=== PATIENT | female | born 1930 | race Caucasian/White ===

== ENCOUNTER 2016-10-28 13:19 | Inpatient (IN) | payer MEDICARE, BC ==
[~2016-10-28] VITALS: Ht 160 cm; Wt 50.0 kg
[2016-10-28] VITALS (7 sets, daily range): BP systolic 97–106; BP diastolic 50–58; PULSE 69–78; RESP 16–18; TEMP 96–98; O2SAT 97–99
[~2016-10-28 13:19] MED LIST: ACET325 PO; ACETAMIN-HYDROcod 325-5 MG PO; AMLO5 PO; DOCU1CAP39 PO; ENOX40P SQ; LORTA5 PO; WALKER ROLLING; WHEELCHAIR RENTAL RA; Z.0.WALKERFRONT
[2016-10-28] MEDS ORDERED: CARV6.25 PO (13:37)
[2016-10-28] MEDS ORDERED: ASPI1TAB69 PO (13:37)
[2016-10-28] MEDS ORDERED: ATOR20TA15 PO (13:37)
[2016-10-28] MEDS ORDERED: POTA-163 PO (13:37)
[2016-10-28] MEDS ORDERED: SULF500T3 PO (13:37)
--- NOTE | 2016-10-28 13:42 | PD ---
HPI . Confusion Chief Complaint: General Weakness Time Seen by Provider: 13:33 Travel History International Travel<30 days: No Contact w/Intl Traveler<30days: No Traveled to known affect area: No History of Present Illness HPI Patient is accompanied here by family member (I think that it is probably a granddaughter). The family member reports that the patient has been in the bed for 5 days and is having continuous diarrhea and is now hallucinating. The family member states that the patient was diagnosed with dementia in June. The patient herself denies any complaints. She is able to answer simple questions appropriately. PFSH Past Medical History Arthritis: Yes Asthma: No Autoimmune Disease: No Anxiety: No Depression: No Heart Rhythm Problems: No Cancer: No Cardiovascular Problems: Yes (HBP) High Cholesterol: Yes Chemotherapy: No Chest Pain: No Congestive Heart Failure: No COPD: No Cerebrovascular Accident: No Diabetes: No Diminished Hearing: No Endocrine: No GERD: No Genitourinary: No Hiatal Hernia: No Hypertension: Yes Immune Disorder: No Musculoskeletal: No Neurologic: Yes (DEMENTIA) Psychiatric: No Reproductive: No Respiratory: No Migraines: No Radiation Therapy: No Renal Failure: No Seizures: No Sickle Cell Disease: No Sleep Apnea: No Thyroid Disease: No Ulcer: No Tetanus Vaccination: < 5 Years Menopausal: Yes Past Surgical History Abdominal Surgery: Yes (appendectomy) AICD: No Appendectomy: Yes Arteriovenous Shunt: No Cardiac Surgery: No Ear Surgery: No Endocrine Surgery: No Eye Surgery: No Genitourinary Surgery: No Gynecologic Surgery: No Hysterectomy: Yes Insulin Pump: No Joint Replacement: No Oral Surgery: Yes (pulled teeth) Pacemaker: No Thoracic Surgery: No Other Surgery: Yes Social History Alcohol Use: Yes (2 COCKTAILS PER NIGHT) Tobacco Use: No Substance Use: No Allergies-Medications (Allergen,Severity, Reaction): Coded Allergies: No Known Allergies (Verified , 10/28/16) Reported Meds & Prescriptions Reported Meds & Active Scripts Active Reported Atorvastatin (Atorvastatin Calcium) 20 Mg Tab 20 Mg PO HS Sulfasalazine 500 Mg Tab 500 Mg PO BID NEB Potassium Chloride ER (Potassium Chloride) 20 Meq Tab 20 Meq PO DAILY Coreg (Carvedilol) 6.25 Mg Tab 6.25 Mg PO BID Aspirin 81 Mg Tabdr 81 Mg PO DAILY Review of Systems Except as stated in HPI: all other systems reviewed are Neg General / Constitutional: No: Fever, Chills Cardiovascular: No: Chest Pain or Discomfort Respiratory: No: Shortness of Breath Gastrointestinal: Positive: Diarrhea, No: Nausea, Vomiting, Abdominal Pain Genitourinary: No: Urgency, Frequency, Dysuria Psychiatric: Positive: Other (hallucinations) Physical Exam Narrative GENERAL: This is a bright-eyed elderly woman who appears to be in no distress. SKIN: Warm and dry. HEAD: Atraumatic. Normocephalic. EYES: Pupils equal and round. ENT: No nasal bleeding or discharge. Mucous membranes pink and moist. NECK: Trachea midline. Neck is supple. No cervical lymphadenopathy. CARDIOVASCULAR: Regular rate and rhythm. Heart sounds are normal. RESPIRATORY: No accessory muscle use. Lungs are clear with full air movement throughout. GASTROINTESTINAL: Abdomen soft, non-tender, nondistended. Bowel sounds are increased. MUSCULOSKELETAL: No obvious deformities. No edema. NEUROLOGICAL: Awake and alert. No obvious cranial nerve deficits. Motor grossly within normal limits. Normal speech. PSYCHIATRIC: Appropriate mood and affect. I am unable to assess her insight and judgment. Data Data Last Documented VS Vital Signs Date Time Temp Pulse Resp B/P Pulse Ox O2 Delivery O2 Flow Rate FiO2 10/28/16 15:47 97.8 78 16 106/58 99 Room Air Orders Electrocardiogram (10/28/16 13:39) Ammonia (10/28/16 13:39) Complete Blood Count With Diff (10/28/16 13:39) Comprehensive Metabolic Panel (10/28/16 13:39) Drug Screen, Random Urine (10/28/16 13:39) Troponin I (10/28/16 13:39) Urinalysis - C+S If Indicated (10/28/16 13:39) Ct Brain W/O Iv Contrast(Rout) (10/28/16 13:39) Blood Glucose (10/28/16 13:39) Iv Access Insert/Monitor (10/28/16 13:39) Sodium Chloride 0.9% Flush (Ns Flush) (10/28/16 13:45) Orthostatic Vital Signs (10/28/16 13:41) Sodium Chlor 0.9% 1000 Ml Inj (Ns 1000 M (10/28/16 13:45) Cath For Specimen (10/28/16 15:52) Admit Order (Ed Use Only) (10/28/16 17:49) Labs Laboratory Tests Test 10/28/16 10/28/16 13:41 16:10 White Blood Count 10.2 TH/MM3 Red Blood Count 4.17 MIL/MM3 Hemoglobin 13.4 GM/DL Hematocrit 40.4 % Mean Corpuscular Volume 97.0 FL Mean Corpuscular Hemoglobin 32.1 PG Mean Corpuscular Hemoglobin 33.1 % Concent Red Cell Distribution Width 15.5 % Platelet Count 258 TH/MM3 Mean Platelet Volume 8.8 FL Neutrophils (%) (Auto) 65.8 % Lymphocytes (%) (Auto) 17.7 % Monocytes (%) (Auto) 11.9 % Eosinophils (%) (Auto) 4.2 % Basophils (%) (Auto) 0.4 % Neutrophils # (Auto) 6.7 TH/MM3 Lymphocytes # (Auto) 1.8 TH/MM3 Monocytes # (Auto) 1.2 TH/MM3 Eosinophils # (Auto) 0.4 TH/MM3 Basophils # (Auto) 0.0 TH/MM3 CBC Comment DIFF FINAL Differential Comment Sodium Level 135 MEQ/L Potassium Level 3.4 MEQ/L Chloride Level 116 MEQ/L Carbon Dioxide Level 9.0 MEQ/L Anion Gap 10 MEQ/L Blood Urea Nitrogen 37 MG/DL Creatinine 4.50 MG/DL Estimat Glomerular Filtration 9 ML/MIN Rate Random Glucose 106 MG/DL Calcium Level 8.4 MG/DL Total Bilirubin 0.4 MG/DL Aspartate Amino Transf 15 U/L (AST/SGOT) Alanine Aminotransferase 15 U/L (ALT/SGPT) Alkaline Phosphatase 107 U/L Ammonia 20 MCMOL/L Troponin I LESS THAN 0.02 NG/ML Total Protein 7.3 GM/DL Albumin 3.4 GM/DL Urine Color YELLOW Urine Turbidity HAZY Urine pH 5.5 Urine Specific [place] 1.015 Urine Protein 30 mg/dL Urine Glucose (UA) NEG mg/dL Urine Ketones NEG mg/dL Urine Occult Blood NEG Urine Nitrite NEG Urine Bilirubin NEG Urine Urobilinogen LESS THAN 2.0 MG/DL Urine Leukocyte Esterase NEG Urine RBC 1 /hpf Urine WBC 3 /hpf Urine Squamous Epithelial <1 /hpf Cells Urine Hyaline Casts 2 /lpf Urine Mucus FEW /lpf Microscopic Urinalysis Comment CULT NOT INDICATED MDM Medical Decision Making Medical Screen Exam Complete: Yes Emergency Medical Condition: Yes Interpretation(s) EKG shows a sinus rhythm with a left bundle branch block. This is unchanged from previous. Differential Diagnosis Differential diagnosis of weakness includes but is not limited to infection, CVA , electrolyte disturbance, renal failure, hypoglycemia, UTI, ACS Narrative Course This patient is brought in by family member reported continuous diarrhea, somnolence and hallucinating. [address] is negative for acute change. CBC has a normal white blood count. Her troponin is negative. Ammonia is 20. Chemistries show acute renal failure. Her previous creatinine was 0.8. Today, it is 0.5. She is acidotic with a carbon dioxide of 9. This is new for her. 5:30 PM I finally have the results of her UA. It is negative. She will be admitted for acute renal failure and metabolic acidosis. Diagnosis Primary Impression: Acute renal failure Qualified Code: N17.9 - Acute renal failure, unspecified acute renal failure type Additional Impressions: Metabolic acidosis Diarrhea Qualified Code: R19.7 - Diarrhea, unspecified type Admitting Information Admitting Physician Requests: Admit Condition: Stable Leda Brar MD Oct 28, 2016 13:42
[2016-10-28] MEDS ORDERED: SODIUM CHLOR 0.9% 1000 ML INJ 1,000 ML IV ONE (13:45)
[2016-10-28] MEDS ORDERED: SODIUM CHLORIDE 0.9% FLUSH 5 ML FLUSH IVF PRN (13:45)
[2016-10-28 14:19] LABS: AUTOMATED NEUTROPHIL # 6.7 TH/MM3 (1.8-7.7); BASOPHIL % 0.4 % (0.0-2.0); EOSINOPHIL # 0.4 TH/MM3 (0-0.4); EOSINOPHIL % 4.2 % (0.0-4.0); HEMATOCRIT 40.4 % (35.0-46.0); HEMO FLAGS DIFF FINAL; LYMPH % 17.7 % (9.0-44.0); LYMPHOCYTE # 1.8 TH/MM3 (1.0-4.8); MEAN CORPUSCULAR HEMOGLOBIN 32.1 PG (27.0-34.0); MEAN CORPUSCULAR HGB CONC 33.1 % (32.0-36.0); MONO % 11.9 % (0.0-8.0); NEUT % 65.8 % (16.0-70.0); PLATELET COUNT 258 TH/MM3 (150-450); RED BLOOD COUNT 4.17 MIL/MM3 (4.00-5.30); RED CELL DISTRIBUTION WIDTH 15.5 % (11.6-17.2); WHITE BLOOD COUNT 10.2 TH/MM3 (4.0-11.0)
[2016-10-28 14:38] LABS: ANION GAP 10 MEQ/L (5-15); AST (GOT) 15 U/L (15-37); BLOOD UREA NITROGEN 37 MG/DL (7-18); CHLORIDE 116 MEQ/L (98-107); GLOMERULAR FILTRATION RATE 9 ML/MIN (>89); POTASSIUM 3.4 MEQ/L (3.5-5.1); SODIUM (NA) 135 MEQ/L (136-145)
--- NOTE | 2016-10-28 14:40 | RADRPT ---
EXAM DATE/TIME: 10/28/2016 14:26 [place] COMPARISON: No previous studies available for comparison. INDICATIONS : Severe weakness for one month. RADIATION DOSE: 56.35 CTDIvol (mGy) MEDICAL HISTORY : Dementia. Hypertension. SURGICAL HISTORY : None. ENCOUNTER: Initial ACUITY: 1 day PAIN SCALE: Non-responsive LOCATION: cranial TECHNIQUE: Multiple contiguous axial images were obtained of the head. Using automated exposure control and adj ustment of the mA and/or kV according to patient size, radiation dose was kept as low as reasonably a chievable to obtain optimal diagnostic quality images. FINDINGS: There is mild atrophy. No hemorrhage, infarct, or mass. No fractures. CONCLUSION: Normal examination for a patient of this age. Ignacio Ibarra MD on October 28, 2016 at 14:38 Board Certified Radiologist. This report was verified electronically.
[2016-10-28 14:41] LABS: ALKALINE PHOSPHATASE 107 U/L (45-117); ALT (GPT) 15 U/L (10-53); TOTAL BILIRUBIN ADULT 0.4 MG/DL (0.2-1.0)
[2016-10-28 17:23] LABS: BLOOD, URINE NEG (NEG); COMMENT (UR) CULT NOT INDICATED; CULTURE IF INDICATED CULT NOT INDICATED; GLUCOSE,URINE NEG (NEG); HYALINE CAST, URINE 2 /lpf (RARE); KETONE, URINE NEG (NEG); MUCUS URINE FEW /lpf (OCC); NITRITE,URINE NEG (NEG); PH, URINE 5.5 (5.0-8.5); SQUAMOUS EPITHELIAL CELL URINE <1 /hpf (0-5); URINE COLOR YELLOW (YELLW/STRAW)
[2016-10-28] MEDS ORDERED: NALOXONE HCL 0.4 MG/ML AMP IV PRN (18:00)
[2016-10-28] MEDS ORDERED: BISACODYL 10 MG SUPP PR PRN (18:00)
[2016-10-28] MEDS ORDERED: SODIUM CHLORIDE 0.9% FLUSH 5 ML FLUSH FLUSH PRN (18:00)
[2016-10-28] MEDS ORDERED: SODIUM CHLOR 0.9% 1000 ML INJ 1,000 ML IV SCH (18:00)
[2016-10-28] MEDS ORDERED: MAGNESIUM HYDROXIDE SUSP 30 ML CUP PO PRN (18:00)
[2016-10-28] MEDS: HEPARIN SODIUM - SQ 10,000 UNITS/ML VIAL SQ SCH (18:09)
[2016-10-28] MEDS ORDERED: SODIUM BICARBONATE 8.4% INJ 75 MEQ in SODIUM CHLOR 0.45% 1000 ML INJ 1,000 ML IV SCH (18:45)
[2016-10-28] MEDS ORDERED: SODIUM BICARBONATE 8.4% INJ 50 MEQ in SODIUM CHLOR 0.45% 1000 ML INJ 1,000 ML IV SCH (18:45)
--- NOTE | 2016-10-28 18:53 | HHI.HP ---
[facility] Service [facility] Primary Care Physician Wendy Conroy MD Admission Diagnosis ARF Diagnoses: Chief Complaint: Confusion, diarrhea 5 days Travel History International Travel<30 Days: No Contact w/Intl Traveler <30 Da: No Traveled to Known Affected Are: No History of Present Illness This is an 85-year-old female patient with past medical history which includes dementia, chronic colitis, hypertension, hyperlipidemia, carotid artery disease. Patient was brought in by her daughter who is currently staying with her to help her with her medical needs. Patient is a poor historian therefore information gathered from patient as well as daughter and prior computerized charting. For the past 5 days patient has been having multiple episodes of diarrhea. patient has been incontinent of stool. Patient denies any blood present in the stool. Patient also denies abdominal pain. Patient has also been unable to eat or drink anything other than a few cups of Jell-O over the past 3 days. Patient's daughter who lives with her has not been sick. Patient was given ciprofloxacin by her primary care physician. Patient's daughter also became concerned when her mom began to have hallucinations this morning. Patient reported that she saw other people in the house last night and also said she saw ants crawling on the floor which were not seen by her daughter. Patient denies fevers chills nausea vomiting chest pain or shortness of breath. Review of Systems Other All other systems reviewed and negative except as mentioned in history of present illness. Past Family Social History Past Medical History dementia, chronic colitis, hypertension, hyperlipidemia, carotid artery disease Past Surgical History Appendectomy, cholecystectomy, ORIF left hip on 07/01/2016 Reported Medications Atorvastatin (Atorvastatin Calcium) 20 Mg Tab 20 Mg PO HS Sulfasalazine 500 Mg Tab 500 Mg PO BID NEB Potassium Chloride ER (Potassium Chloride) 20 Meq Tab 20 Meq PO DAILY Coreg (Carvedilol) 6.25 Mg Tab 6.25 Mg PO BID Aspirin 81 Mg Tabdr 81 Mg PO DAILY Allergies: Coded Allergies: No Known Allergies (Verified , 10/28/16) Active Ordered Medications Current Medications Medications (Trade) Dose Ordered Sig/Quentin Route Start Time Stop Time Status Last Admin (NS 1000 ml Inj) 1,000 ml @ 150 mls/hr Q6H40M IV 10/28/16 18:00 10/28/16 18:09 (NS Flush) 2 ml UNSCH PRN FLUSH 10/28/16 18:00 (NS Flush) 2 ml BID FLUSH 10/28/16 21:00 (Tylenol) 650 mg Q4H PRN PO 10/28/16 18:00 (Zofran Inj) 4 mg Q6H PRN IVP 10/28/16 18:00 (Dulcolax Supp) 10 mg DAILY PRN MS 10/28/16 18:00 (Milk Of Magnesia Liq) 30 ml Q12H PRN PO 10/28/16 18:00 (Heparin Inj) 5,000 units Q12H SQ 10/28/16 18:00 10/28/16 18:09 (Narcan Inj) 0.4 mg UNSCH PRN IV 10/28/16 18:00 Family History Reviewed and noncontributory, patient family history is negative for Alzheimer' s dementia Parkinson's colon cancer Social History Patient's daughter is currently living with her Denies tobacco use or illicit drug use Daughter reports patient drinks approximal 10 ounces of liquor per day Physical Exam Vital Signs Vital Signs Date Time Temp Pulse Resp B/P Pulse Ox O2 Delivery O2 Flow Rate FiO2 10/28/16 17:58 98.0 76 16 106/58 99 Room Air 10/28/16 15:47 97.8 78 16 106/58 99 Room Air 10/28/16 13:55 80 17 97/52 81 17 101/55 100/50 10/28/16 13:30 80 16 99 Room Air 10/28/16 13:25 97.4 74 18 101/56 Room Air Physical Exam GENERAL: This is a thin, well-developed patient, in no apparent distress. SKIN: No rashes, ecchymoses or lesions. Cool and dry. Overall dry skin HEAD: Atraumatic. Normocephalic. No temporal or scalp tenderness. EYES: Extraocular motions intact. No scleral icterus. No injection or drainage. ENT: Nose without bleeding, purulent drainage or septal hematoma. Throat without erythema, tonsillar hypertrophy or exudate. Uvula midline. Airway patent. Mucous membranes are dry NECK: Trachea midline. No JVD or lymphadenopathy. Supple, nontender, no meningeal signs. CARDIOVASCULAR: Regular rate and rhythm without murmurs, gallops, or rubs. RESPIRATORY: Clear to auscultation. Breath sounds equal bilaterally. No wheezes , rales, or rhonchi. GASTROINTESTINAL: Abdomen soft, non-tender, nondistended. No hepato-splenomegaly , or palpable masses. No guarding. MUSCULOSKELETAL: Extremities without clubbing, cyanosis, or edema. No joint tenderness, effusion, or edema noted. No calf tenderness. Negative Homans sign bilaterally. NEUROLOGICAL: Awake and alert. No focal deficits Motor and sensory grossly within normal limits. 4 out of 5 muscle strength in all muscle groups. Normal speech. Laboratory Laboratory Tests Test 10/28/16 10/28/16 13:41 16:10 White Blood Count 10.2 Red Blood Count 4.17 Hemoglobin 13.4 Hematocrit 40.4 Mean Corpuscular Volume 97.0 Mean Corpuscular Hemoglobin 32.1 Mean Corpuscular Hemoglobin 33.1 Concent Red Cell Distribution Width 15.5 Platelet Count 258 Mean Platelet Volume 8.8 Neutrophils (%) (Auto) 65.8 Lymphocytes (%) (Auto) 17.7 Monocytes (%) (Auto) 11.9 Eosinophils (%) (Auto) 4.2 Basophils (%) (Auto) 0.4 Neutrophils # (Auto) 6.7 Lymphocytes # (Auto) 1.8 Monocytes # (Auto) 1.2 Eosinophils # (Auto) 0.4 Basophils # (Auto) 0.0 CBC Comment DIFF FINAL Differential Comment Sodium Level 135 Potassium Level 3.4 Chloride Level 116 Carbon Dioxide Level 9.0 Anion Gap 10 Blood Urea Nitrogen 37 Creatinine 4.50 Estimat Glomerular Filtration 9 Rate Random Glucose 106 Calcium Level 8.4 Total Bilirubin 0.4 Aspartate Amino Transf 15 (AST/SGOT) Alanine Aminotransferase 15 (ALT/SGPT) Alkaline Phosphatase 107 Ammonia 20 Troponin I LESS THAN 0.02 Total Protein 7.3 Albumin 3.4 Urine Color YELLOW Urine Turbidity HAZY Urine pH 5.5 Urine Specific [place] 1.015 Urine Protein 30 Urine Glucose (UA) NEG Urine Ketones NEG Urine Occult Blood NEG Urine Nitrite NEG Urine Bilirubin NEG Urine Urobilinogen LESS THAN 2.0 Urine Leukocyte Esterase NEG Urine RBC 1 Urine WBC 3 Urine Squamous Epithelial <1 Cells Urine Hyaline Casts 2 Urine Mucus FEW Microscopic Urinalysis Comment CULT NOT INDICATED Result Diagram: 1/1/17 1341 10/28/16 1341 Imaging Last Impressions Head CT 10/28/16 1339 Signed Impressions: Service Date/Time: Friday, October 28, 2016 14:26 - CONCLUSION: Normal examination for a patient of this age. Ignacio Ibarra MD Assessment and Plan Problem List: (1) Acute renal failure ICD Code: N17.9 Status: Acute (2) Metabolic acidosis ICD Code: E87.2 Status: Acute (3) Diarrhea ICD Code: R19.7 Status: Acute (4) ETOH abuse ICD Code: F10.10 Status: Chronic Assessment and Plan This is an 85-year-old female patient with past medical history which includes dementia, chronic colitis, hypertension, hyperlipidemia, carotid artery disease. Presents to the emergency department with multiple episodes of diarrhea over the past 5 days increased generalized weakness, confusion and hallucinations. Acute renal injury likely secondary to dehydration- BUN 37 creatinine of 4.50 estimated GFR 9 baseline creatinine at 0.8 Also with metabolic acidosis and CO2 of 9.0 - Will start half-normal saline with 75 mEq sodium bicarbonate at 150 cc per hour - If No improvement within 24 hours, we will consider Nephrology consult. Acute Diarrhea - check stools for C. difficile ovum and parasites. - Will hold off abx for now. If patient's diarrhea does not improve within 24 hours, we will consider Cipro, Flagyl. Hypokalemia. K+ 3.4 Hypomagnesemia Mg 1.1 - Will replace Mg with IV Magnesium Sulfate 4-6 gram. - Monitor K+. Will replace based on BMP on 10/29/2016. EtOH abuse- [place] protocol Seizure precautions DVT prophylaxis heparin subcutaneous Discussed CODE STATUS with patient and daughter patient is a DNR and wishes to be a DNR while in the hospital Discussed plan of care with patient and daughter at bedside, RN and ER provider Written by Lo Fajardo, acting as scribe for Dr. Nieto on 10/28/16 at 18: 48. The documentation accurately reflects the work performed [id number] by , Ra Nieto D.O on 10/28/16 at 18:48. Physician Certification 2 Midnight Certification Type: Admission for Inpatient Services Order for Inpatient Services The services are ordered in accordance with Medicare regulations or non- Medicare payer requirements, as applicable. In the case of services not specified as inpatient-only, they are appropriately provided as inpatient services in accordance with the 2-midnight benchmark. Estimated LOS (days): 4 days is the estimated time the patient will need to remain in the hospital, assuming treatment plan goals are met and no additional complications. Post-Hospital Plan: Home Problem Qualifiers (1) Acute renal failure: Qualified Code: N17.9 - Acute renal failure, unspecified acute renal failure type (2) Diarrhea: Qualified Code: R19.7 - Diarrhea, unspecified type Lo Fajardo Oct 28, 2016 18:53 Travis Nieto DO Oct 28, 2016 23:12
[2016-10-28] MEDS: SODIUM BICARBONATE 8.4% INJ 75 MEQ in SODIUM CHLOR 0.45% 1000 ML INJ 1,000 ML IV SCH (19:13)
[2016-10-28] MEDS ORDERED: SODIUM CHLORIDE 0.9% FLUSH 5 ML FLUSH FLUSH SCH (21:00)
[2016-10-28] MEDS: sulfaSALAzine 500 MG TAB PO SCH (21:06)
[2016-10-28] MEDS: ATORVASTATIN 20 MG TAB PO SCH (21:06)
[2016-10-28] MEDS ORDERED: LORazepam 2 MG TAB PO PRN (21:45)
[2016-10-28] MEDS ORDERED: FLUMAZENIL 1 MG/10 ML VIAL IV PUSH PRN (21:45)
[2016-10-28] MEDS ORDERED: LORazepam 1 MG TAB PO PRN (21:45)
[2016-10-28] MEDS ORDERED: SODIUM CHLORIDE 0.9% FLUSH 5 ML FLUSH IV FLUSH PRN (21:45)
[2016-10-28] MEDS ORDERED: LORazepam 2 MG/ML VIAL IV PUSH PRN ×4 (21:45)
[2016-10-29] VITALS (7 sets, daily range): BP systolic 100–136; BP diastolic 58–62; PULSE 68–90; RESP 16–18; TEMP 96.4–97.1; O2SAT 93–99
[2016-10-29] MEDS: MAGNESIUM SULFATE 1 GM PREMIX 100 ML IV SCH ×6 (01:11→15:08)
[2016-10-29 01:28] LABS: AMPHETAMINE, URINE NEG (NEG); BARBITURATES, URINE NEG (NEG); COCAINE, URINE NEG (NEG)
[2016-10-29 01:51] LABS: C. DIFF EPI 027 PRESUMPTIVE NEGATIVE (NEGATIVE); C. DIFF TOXIN PCR NEGATIVE (NEGATIVE)
[2016-10-29] MEDS: SODIUM BICARBONATE 8.4% INJ 75 MEQ in SODIUM CHLOR 0.45% 1000 ML INJ 1,000 ML IV SCH ×4 (02:40→23:25)
[2016-10-29] MEDS: HEPARIN SODIUM - SQ 10,000 UNITS/ML VIAL SQ SCH ×2 (05:10→17:56)
[2016-10-29 06:04] LABS: BASOPHIL % 0.5 % (0.0-2.0); EOSINOPHIL # 0.4 TH/MM3 (0-0.4); EOSINOPHIL % 5.7 % (0.0-4.0); HEMATOCRIT 37.5 % (35.0-46.0); HEMO FLAGS DIFF FINAL; LYMPH % 28.2 % (9.0-44.0); LYMPHOCYTE # 2.1 TH/MM3 (1.0-4.8); MEAN CELL VOLUME 97.6 FL (80.0-100.0); MEAN CORPUSCULAR HEMOGLOBIN 31.6 PG (27.0-34.0); MEAN CORPUSCULAR HGB CONC 32.3 % (32.0-36.0); MONO % 11.3 % (0.0-8.0); NEUT % 54.3 % (16.0-70.0); PLATELET COUNT 178 TH/MM3 (150-450); RED BLOOD COUNT 3.84 MIL/MM3 (4.00-5.30); RED CELL DISTRIBUTION WIDTH 15.3 % (11.6-17.2); WHITE BLOOD COUNT 7.3 TH/MM3 (4.0-11.0)
[2016-10-29 08:25] LABS: BICARBONATE 14.9 MEQ/L (21.0-32.0)
[2016-10-29 08:36] LABS: POTASSIUM 2.5 MEQ/L (3.5-5.1)
[2016-10-29] MEDS: ASPIRIN EC 81 MG TABEC PO SCH ×2 (08:59→09:00)
[2016-10-29] MEDS: FOLIC ACID 1 MG TAB PO SCH ×2 (08:59→09:00)
[2016-10-29] MEDS: THIAMINE HCL 100 MG TAB PO SCH (09:00)
[2016-10-29] MEDS: POTASSIUM CHLORIDE 10 MEQ CONTROLLED RELEASE TAB PO SCH ×2 (09:00→20:24)
[2016-10-29] MEDS: sulfaSALAzine 500 MG TAB PO SCH ×2 (09:00→20:24)
[2016-10-29] MEDS: SODIUM CHLORIDE 0.9% FLUSH 5 ML FLUSH IV FLUSH SCH ×2 (09:00→20:24)
[2016-10-29] MEDS: POTASSIUM CHLOR 20 MEQ PREMIX 100 ML IV SCH ×4 (10:08→16:58)
--- NOTE | 2016-10-29 16:30 | HHI.PR ---
Subjective Remarks Follow up for ELYSSA, nausea, vomiting, diarrhea. Ms. Begum received ativan per CIWA protocol earlier in the AM. However, several hours later, patient still remained in a very sedative state. Patient's daughter at bedside expresses concern regarding such a huge change in mental status. Patient was conversant at the time of admission on 10/28/2016. Objective Vitals Vital Signs Date Time Temp Pulse Resp B/P Pulse Ox O2 Delivery O2 Flow Rate FiO2 10/29/16 12:00 97.0 90 17 129/59 99 10/29/16 08:48 97 21 10/29/16 08:00 96.5 79 16 136/59 98 10/29/16 00:00 96.7 68 17 100/62 99 10/28/16 20:00 96.0 71 18 106/56 99 10/28/16 19:30 97 10/28/16 19:13 69 18 102/54 97 10/28/16 17:58 98.0 76 16 106/58 99 Room Air I/O 10/28/16 10/28/16 10/28/16 10/29/16 10/29/16 10/29/16 06:59 14:59 22:59 06:59 14:59 22:59 Intake Total 240 ml 1424 ml 0 ml Output Total 250 ml 200 ml Balance -10 ml 1224 ml 0 ml Intake Oral 240 ml 240 ml 0 ml IV Total 1184 ml Output Urine Total 250 ml 200 ml # Voids 3 # Bowel Movements 2 3 Result Diagram: 10/29/16 0516 10/29/16 0738 Imaging Last Impressions Head CT 10/28/16 1339 Signed Impressions: Service Date/Time: Friday, October 28, 2016 14:26 - CONCLUSION: Normal examination for a patient of this age. Ignacio Ibarra MD Objective Remarks GENERAL: Sedated, wakes up on noxious stimuli. Speech is slurred, very difficult to understand. SKIN: Warm and dry. HEAD: Normocephalic. EYES: No scleral icterus. No injection or drainage. NECK: Supple, trachea midline. No JVD or lymphadenopathy. CARDIOVASCULAR: Regular rate and rhythm without murmurs, gallops, or rubs. RESPIRATORY: Breath sounds equal bilaterally. No accessory muscle use. GASTROINTESTINAL: Abdomen soft, non-tender, nondistended. MUSCULOSKELETAL: No cyanosis, or edema. BACK: Nontender without obvious deformity. No CVA tenderness. Procedures None. A/P Problem List: (1) Benzodiazepine causing adverse effect in therapeutic use ICD Code: T42.4X5A Status: Acute (2) Acute renal failure ICD Code: N17.9 Status: Acute (3) Metabolic acidosis ICD Code: E87.2 Status: Acute (4) Diarrhea ICD Code: R19.7 Status: Acute (5) ETOH abuse ICD Code: F10.10 Status: Chronic Assessment and Plan This is an 85-year-old female patient with past medical history which includes dementia, chronic colitis, hypertension, hyperlipidemia, carotid artery disease. Presents to the emergency department with multiple episodes of diarrhea over the past 5 days increased generalized weakness, confusion and hallucinations. - Adverse effect of Benzodiazepine with therapeutic use. - Per RN, patient was agitated and received Lorazepam at around 5:15AM. - Since 5:15AM, patient has been sedated. Patient could be aroused on sternal rub and other noxious physical stimuli but she could not speak clearly. This is a major change compared to patient's normal speech, normal conversation at the time of admission. We checked blood glucose which was 79. I also obtained ABG which was 7.35/22/102 /12 ruling out CO2 retention. We determined that patient's condition was likely due to acute kidney injury which made Lorazepam clearance slow. Patient's daughter was concerned that patient's face appeared to be droopy on one side and her speech was slurry. No other focal deficits could be appreciated. I discussed with Neurologist Dr. Partida. We administered two doses of Flumazenil 0.2mg which appeared to be effective. I discussed with RN later in the day around 7PM, patient appeared to be much more at her baseline now. Dr. Partida was kind enough to see patient right away and recommended MRI brain, Carotid US which are pending. Total critical care time spent more than 35 minutes. Other acute care issues: Acute renal injury likely secondary to dehydration- BUN 37 creatinine of 4.50 estimated GFR 9 baseline creatinine at 0.8 Also with metabolic acidosis and CO2 of 9.0 on admission. - Continue half-normal saline with 75 mEq sodium bicarbonate at 150 cc per hour - Creatinine improved 4.5 --> 3.5. - Will continue to monitor BUN, creatinine. Acute Diarrhea - check stools for C. difficile ovum and parasites. - Will hold off abx for now. If patient's diarrhea does not improve within 24 hours, we will consider Cipro, Flagyl. Hypokalemia. K+ 3.4 --> 2.5 --> 2.7. Hypomagnesemia Mg 1.1 --> 2.6. - K and Mg replaced with IV, PO. - Will further replace K+ with IV KCL. - Repeat BMP in the AM. EtOH abuse - D/C CIWA protocol. IF patient is agitated, hospitalist service can be called for treatment/plan. DNR. Heparin SQ. Problem Qualifiers (1) Acute renal failure: Qualified Code: N17.9 - Acute renal failure, unspecified acute renal failure type (2) Diarrhea: Qualified Code: R19.7 - Diarrhea, unspecified type rTavis Nieto DO Oct 29, 2016 16:30
[2016-10-29 17:05] LABS: BLOOD GAS BASE EXCESS -12.8 mmol/L (-2-2); BLOOD GAS HCO3 12 mmol/L (22-26); BLOOD GAS METHEMOGLOBIN 1.1 % (0-2); BLOOD GAS O2 HGB SATURATION 95 % (90-100); BLOOD GAS OXYGEN CONTENT 16.8 Vol % (12.0-20.0); BLOOD GAS PCO2 22 mmHg (38-42); BLOOD GAS PO2 102 mmHg (61-120); BLOOD GAS TOTAL HGB 12.4 G/DL (12.0-16.0); CRITICAL VALUE YES; DRAW SITE RT RADIAL; FIO2 21 %; NUMBER OF ARTERIAL PUNCTURES 1; STAT YES; TEMP CORR TO 98.6; ULNAR PULSE PRESENT
[2016-10-29] MEDS: FLUMAZENIL 1 MG/10 ML VIAL IV PUSH PRN ×2 (17:25→17:51)
[2016-10-29 18:12] LABS: MAGNESIUM 2.6 MG/DL (1.5-2.5)
[2016-10-29 18:16] LABS: POTASSIUM 2.7 MEQ/L (3.5-5.1)
--- NOTE | 2016-10-29 18:22 | EKG ---
Date Performed: 10/28/2016 Time Performed: 14:00:53 PTAGE: 85 years EKG: Sinus rhythm WITH OCCASIONAL SUPRAVENTRICULAR PREMATURE COMPLEXES LEFT BUNDLE BRANCH BLOCK Since previous tracing , no significant change noted ABNORMAL ECG PREVIOUS TRACING : 06/30/2016 13.21 DOCTOR: Halie Abrams Interpretating Date/Time 10/29/2016 18:21:03
--- NOTE | 2016-10-29 18:30 | MB ---
cc: EMILIE WEINSTEIN DATE OF CONSULTATION: 10/29/2016 REASON FOR CONSULTATION: HISTORY OF PRESENT ILLNESS: The patient is an 85 year-old woman, left-handed, with a history of hypertension, hypercholesterolemia, some carotid disease, the daughter is not sure how much. She came in with acute renal failure. She has had nausea, vomiting and diarrhea for the last month or so, history of colitis. Evidently she was awake, although has been recently diagnosed with dementia according to the daughter and then was given some Ativan about 5 o'clock this morning and has not awoken since. A neuro consult was put in. SOCIAL HISTORY: She is not a smoker. She is a heavy drinker of whiskey, quite a bit every day, lives with her daughter currently. FAMILY HISTORY: Positive for cancer. Positive for drop attacks in her daughter positive for stroke. REVIEW OF SYSTEMS: According to the daughter, no diabetes, NH, stent, angioplasty, CABG, A-fib, Coumadin, no prior renal, hepatic or pulmonary disease, thyroid disease lupus, cancer seizure or stroke. PAST MEDICAL HISTORY: As above. Also a right femur fracture from a fall a few months ago. She has not been seen by neurology here before. MEDICATIONS AT HOME 1. Sulfasalazine 2. Potassium. 3. Coreg. 4. 81 of aspirin. 5. Atorvastatin. CURRENT MEDICATIONS: 1. 81 of aspirin. 2. Folic acid. 3. Thiamine. 4. Ativan p.r.n. regimen of which she got a milligram at 1 a.m. today. PHYSICAL EXAMINATION: Afebrile, 82, 18, 136/69. NEUROLOGIC: There were no carotid bruits. There is a right upper precordial murmur over the aortic valve. Heart was regular rhythm. She does not open her eyes for me. I opened them instead. She can see to the right two fingers, hard to say, I think she might have counted one to the left. She is extremely lethargic but does awaken and has some slurred speech and is able to converse and followed some commands. She appears to move both of her upper extremities and her toes well. She has some increased tone in the bilateral lower extremities. The toes were equivocal bilaterally. LABORATORY DATA: CBC is normal. Sedimentation rate was normal in 2005. Blood gas 7.35, 22, 102. Basic metabolic profile, potassium is 2.5, creatinine 3.5, it was 4.5 on admission, BUN 34, calcium 7.9, magnesium 1.1. LFTs normal. Troponin negative. B12 has been normal, last in 2013, methylmalonic normal at that time. TSH normal earlier this year. Urine drug screen negative. UA negative. X-RAYS: CT scan of her brain done yesterday, read as normal. Review of the films, show some diffuse central and cortical atrophy. I do not see any major infarcts. IMPRESSION I would hold the At[place]and. She has some underlying dementia. Will check an EEG and MRI. Some Mazicon is being given now. We will see if that does not awaken her. I will stop the sedatives that she is on now p.r.n. Evidently there has not been any alcohol withdrawal. She last had a drink about five days ago and this last dose of Ativan appears to have over sedated her. MD MARY Christiansen/MADONNA /5:16 PM /5:46 PM
[2016-10-29] MEDS ORDERED: POTASSIUM CHLOR 20 MEQ PREMIX 100 ML IV ONE (19:45)
[2016-10-29] MEDS: ATORVASTATIN 20 MG TAB PO SCH (20:24)
[2016-10-30] VITALS: BP 126/60; PULSE 80; RESP 18; TEMP 97.7; O2SAT 97
[2016-10-30] MEDS: HEPARIN SODIUM - SQ 10,000 UNITS/ML VIAL SQ SCH ×2 (06:02→17:05)
[2016-10-30] MEDS: SODIUM BICARBONATE 8.4% INJ 75 MEQ in SODIUM CHLOR 0.45% 1000 ML INJ 1,000 ML IV SCH ×3 (06:03→20:55)
[2016-10-30 06:10] LABS: BICARBONATE 16.4 MEQ/L (21.0-32.0)
[2016-10-30 06:15] LABS: POTASSIUM 2.7 MEQ/L (3.5-5.1)
[2016-10-30] MEDS ORDERED: POTASSIUM CHLOR 20 MEQ PREMIX 100 ML IV ONE (06:30)
[2016-10-30] MEDS: ASPIRIN EC 81 MG TABEC PO SCH (07:57)
[2016-10-30] MEDS: FOLIC ACID 1 MG TAB PO SCH (07:58)
[2016-10-30] MEDS: sulfaSALAzine 500 MG TAB PO SCH ×2 (07:58→21:00)
[2016-10-30] MEDS: THIAMINE HCL 100 MG TAB PO SCH (07:58)
[2016-10-30 08:00] VITALS: BP 132/66; PULSE 88; RESP 16; TEMP 97.4; O2SAT 95
[2016-10-30] MEDS: POTASSIUM CHLORIDE 10 MEQ CONTROLLED RELEASE TAB PO SCH ×2 (08:00→21:57)
[2016-10-30] MEDS: SODIUM CHLORIDE 0.9% FLUSH 5 ML FLUSH IV FLUSH SCH ×2 (08:00→21:00)
--- NOTE | 2016-10-30 08:02 | HHI.PR ---
Objective Vital Signs Date Time Temp Pulse Resp B/P Pulse Ox O2 Delivery O2 Flow Rate FiO2 10/30/16 00:00 97.7 80 18 126/60 97 10/29/16 20:03 93 10/29/16 20:00 97.1 86 18 121/58 98 10/29/16 16:00 96.4 82 18 136/59 99 10/29/16 12:00 97.0 90 17 129/59 99 10/29/16 08:48 97 21 I/O 10/29/16 10/29/16 10/29/16 10/30/16 10/30/16 10/30/16 07:00 15:00 23:00 07:00 15:00 23:00 Intake Total 1424 ml 1277 ml 375 ml 1329 ml Output Total 200 ml Balance 1224 ml 1277 ml 375 ml 1329 ml Intake Oral 240 ml 0 ml 120 ml 120 ml IV Total 1184 ml 1277 ml 255 ml 1209 ml Output Urine Total 200 ml # Voids 3 1 1 # Bowel Movements 3 0 2 Result Diagram: 10/29/16 0516 10/30/16 0525 Objective Remarks awake alert not place tongue midline moves all well vff Assessment and Plan Assessment and Plan imp much better med effect awoke with mazicon last pm and all better now fu us mri eeg if eeg done us and mri ok could dc and fu office Khari Partida MD Oct 30, 2016 08:02
[2016-10-30] MEDS: POTASSIUM CHLOR 20 MEQ PREMIX 100 ML IV SCH ×4 (09:00→16:00)
--- NOTE | 2016-10-30 10:17 | HHI.PR ---
Subjective Remarks Follow up for ELYSSA, hypokalemia, generalized weakness. Ms. Begum is doing much better today. Sitting in her chair, conversant and speech is clear. No acute concerns. Objective Vitals Vital Signs Date Time Temp Pulse Resp B/P Pulse Ox O2 Delivery O2 Flow Rate FiO2 10/30/16 08:00 97.4 88 16 132/66 95 10/30/16 00:00 97.7 80 18 126/60 97 10/29/16 20:03 93 10/29/16 20:00 97.1 86 18 121/58 98 10/29/16 16:00 96.4 82 18 136/59 99 10/29/16 12:00 97.0 90 17 129/59 99 I/O 10/29/16 10/29/16 10/29/16 10/30/16 10/30/16 10/30/16 07:00 15:00 23:00 07:00 15:00 23:00 Intake Total 1424 ml 1277 ml 375 ml 1329 ml 120 ml Output Total 200 ml Balance 1224 ml 1277 ml 375 ml 1329 ml 120 ml Intake Oral 240 ml 0 ml 120 ml 120 ml 120 ml IV Total 1184 ml 1277 ml 255 ml 1209 ml Output Urine Total 200 ml # Voids 3 1 1 # Bowel Movements 3 0 2 Result Diagram: 10/29/16 0516 10/30/16 0525 Imaging Last Impressions Head CT 10/28/16 1339 Signed Impressions: Service Date/Time: Friday, October 28, 2016 14:26 - CONCLUSION: Normal examination for a patient of this age. Ignacio Ibarra MD Objective Remarks GENERAL: Sedated, wakes up on noxious stimuli. Speech is slurred, very difficult to understand. SKIN: Warm and dry. HEAD: Normocephalic. EYES: No scleral icterus. No injection or drainage. NECK: Supple, trachea midline. No JVD or lymphadenopathy. CARDIOVASCULAR: Regular rate and rhythm without murmurs, gallops, or rubs. RESPIRATORY: Breath sounds equal bilaterally. No accessory muscle use. GASTROINTESTINAL: Abdomen soft, non-tender, nondistended. MUSCULOSKELETAL: No cyanosis, or edema. BACK: Nontender without obvious deformity. No CVA tenderness. Procedures None. A/P Problem List: (1) Benzodiazepine causing adverse effect in therapeutic use ICD Code: T42.4X5A Status: Acute (2) Acute renal failure ICD Code: N17.9 Status: Acute (3) Metabolic acidosis ICD Code: E87.2 Status: Acute (4) Diarrhea ICD Code: R19.7 Status: Acute (5) ETOH abuse ICD Code: F10.10 Status: Chronic Assessment and Plan This is an 85-year-old female patient with past medical history which includes dementia, chronic colitis, hypertension, hyperlipidemia, carotid artery disease. Presents to the emergency department with multiple episodes of diarrhea over the past 5 days increased generalized weakness, confusion and hallucinations. - Adverse effect of Benzodiazepine with therapeutic use - resolved. Patient required two doses of Flumazenil 0.2mg. Neurology evaluated patient. Acute renal injury likely secondary to dehydration- BUN 37 creatinine of 4.50 estimated GFR 9 baseline creatinine at 0.8 Also with metabolic acidosis and CO2 of 9.0 on admission. - Continue half-normal saline with 75 mEq sodium bicarbonate at 150 cc per hour - Creatinine improved 4.5 --> 3.5 --> 2.46. - Will continue to monitor BUN, creatinine. Acute Diarrhea - check stools for C. difficile ovum and parasites. - Will hold off abx for now. Diarrhea appears to be resolving. Hypokalemia. K+ 3.4 --> 2.5 --> 2.7 --> 2.7 today as well. Hypomagnesemia Mg 1.1 --> 2.6. - K and Mg replaced with IV, PO. - Will further replace K+ with IV KCL. - Repeat BMP in the AM. - PT to see patient today. If K is corrected, patient can likely be discharged tomorrow. EtOH abuse - CIWA protocol discontinued on 10/29/2016. IF patient is agitated, hospitalist service can be called for treatment/plan. DNR. Heparin SQ. Problem Qualifiers (1) Acute renal failure: Qualified Code: N17.9 - Acute renal failure, unspecified acute renal failure type (2) Diarrhea: Qualified Code: R19.7 - Diarrhea, unspecified type Travis Nieto DO Oct 30, 2016 10:17 am
[2016-10-30 11:24] VITALS: BP 133/60; PULSE 88; RESP 17; TEMP 96.9; O2SAT 95
--- NOTE | 2016-10-30 14:22 | RADRPT ---
EXAM DATE/TIME: 10/30/2016 13:05 [facility] COMPARISON: No previous studies available for comparison. INDICATIONS : Hallucinations. MEDICAL HISTORY : Hypertension. SURGICAL HISTORY : Hysterectomy. Appendectomy. rt femor, knee surgery ENCOUNTER: Subsequent ACUITY: 3 day PAIN SCORE: 0/10 LOCATION: cranial TECHNIQUE: Multiplanar, multisequence MRI of the brain was performed without contrast. FINDINGS: CEREBRUM: The ventricles are normal for age. No evidence of midline shift, mass lesion, hemorrhage or acute in farction. No extraaxial fluid collections are seen. The pituitary gland and suprasellar cistern are normal in configuration. WHITE MATTER: No significant signal abnormalities are seen in the white matter. POSTERIOR FOSSA: The cerebellum and brainstem are intact. The 4th ventricle is midline. The cerebellopontine angle is unremarkable. The cerebellar tonsils are normal in position. DIFFUSION IMAGING: No focal areas of restricted diffusion are seen. No evidence of acute infarction. EXTRACRANIAL: The visualized portions of the orbits and paranasal sinuses are unremarkable. CONCLUSION: 1. No acute abnormality. The exam is within normal limits for age. Shawn Aden MD on October 30, 2016 at 14:18 Board Certified Radiologist. This report was verified electronically.
[2016-10-30 16:00] VITALS: BP 127/60; PULSE 83; RESP 17; TEMP 96.9; O2SAT 95
[2016-10-30 17:37] LABS: BICARBONATE 15.8 MEQ/L (21.0-32.0)
[2016-10-30 17:38] LABS: POTASSIUM 3.9 MEQ/L (3.5-5.1)
[2016-10-30 18:20] VITALS: O2SAT 95
[2016-10-30 20:52] VITALS: BP 138/63; PULSE 96; RESP 17; TEMP 96.9; O2SAT 96
--- NOTE | 2016-10-30 21:54 | RADRPT ---
EXAM DATE/TIME: 10/30/2016 18:15 [facility] COMPARISON: No previous studies available for comparison. INDICATIONS : Cerebrovascular accident. MEDICAL HISTORY : Hypercholesterolemia. Hypertension. Dementia. Arthritis. SURGICAL HISTORY : Appendectomy. Left hip replacement. ENCOUNTER: Initial ACUITY: 1 day PAIN SCORE: 0/10 LOCATION: Bilateral neck PEAK SYSTOLIC VELOCITIES (cm/sec): ICA/CCA RATIO: Right: 1.0 Left: 2.7 ICA: Right: 58 Left: 153 CCA: Right: 60 Left: 57 ECA: Right: 47 Left: 74 VERTEBRAL: Right: 58 antegrade Left: 47 antegrade Elevated flow velocities and ICA/CCA ratios have been found to correlate with increased degrees of vessel stenosis, calculated as percentage of diameter relative to a normal segment of distal ICA/CCA FINDINGS: RIGHT CAROTID: Calcific plaque which appears mild. Velocities satisfactory. LEFT CAROTID: Moderate eccentric calcific plaquing with mild flow acceleration. VERTEBRAL ARTERIES: Antegrade flow is seen in both vertebral arteries. MISCELLANEOUS: None. CONCLUSION: Eccentric plaque at the left carotid bifurcation producing likely moderate stenotic narrowing estimat ed at 50-69% Alberto Llamas MD on October 30, 2016 at 21:50 Board Certified Radiologist. This report was verified electronically.
[2016-10-30] MEDS: ATORVASTATIN 20 MG TAB PO SCH (21:56)
[2016-10-31 00:20] VITALS: BP 157/70; PULSE 84; RESP 16; TEMP 97.4; O2SAT 98
[2016-10-31] MEDS: SODIUM BICARBONATE 8.4% INJ 75 MEQ in SODIUM CHLOR 0.45% 1000 ML INJ 1,000 ML IV SCH ×3 (02:25→18:25)
[2016-10-31] MEDS: HEPARIN SODIUM - SQ 10,000 UNITS/ML VIAL SQ SCH ×2 (05:56→17:32)
[2016-10-31] MEDS: SODIUM CHLORIDE 0.9% FLUSH 5 ML FLUSH IV FLUSH SCH ×2 (07:36→21:00)
[2016-10-31] MEDS: FOLIC ACID 1 MG TAB PO SCH (07:37)
[2016-10-31] MEDS: ASPIRIN EC 81 MG TABEC PO SCH (07:37)
[2016-10-31] MEDS: THIAMINE HCL 100 MG TAB PO SCH (07:37)
[2016-10-31] MEDS: sulfaSALAzine 500 MG TAB PO SCH ×2 (07:37→22:29)
[2016-10-31 07:38] VITALS: BP 149/67; PULSE 87; RESP 17; TEMP 97.4; O2SAT 95
--- NOTE | 2016-10-31 08:26 | HHI.PR ---
Objective Vital Signs Date Time Temp Pulse Resp B/P Pulse Ox O2 Delivery O2 Flow Rate FiO2 10/31/16 07:38 97.4 87 17 149/67 95 10/31/16 00:20 97.4 84 16 157/70 98 10/30/16 20:52 96.9 96 17 138/63 96 10/30/16 18:20 95 21 10/30/16 16:00 96.9 83 17 127/60 95 10/30/16 11:24 96.9 88 17 133/60 95 I/O 10/30/16 10/30/16 10/30/16 10/31/16 10/31/16 10/31/16 07:00 15:00 23:00 07:00 15:00 23:00 Intake Total 1329 ml 1475 ml 1452 ml 1071 ml 120 ml Output Total 600 ml Balance 1329 ml 875 ml 1452 ml 1071 ml 120 ml Intake Oral 120 ml 600 ml 480 ml 280 ml 120 ml IV Total 1209 ml 875 ml 791 ml Packed Cells 972 ml Output Urine Total 600 ml # Voids 1 3 4 # Bowel Movements 2 7 2 2 Result Diagram: 10/29/16 0516 10/30/16 1657 Objective Remarks awake alert not placox3 tongue midline moves all well vff Assessment and Plan Assessment and Plan imp much better fu us 50-69% left asx mri nl labs pend eeg pend ok dc by me will sign off i would not do anything on carotid as asx and age just asa and statin she is on Khari Partida MD Oct 31, 2016 08:26
--- NOTE | 2016-10-31 09:54 | MG ---
cc: ISELA HERNANDEZ Lab No: [id number] Date: 10/30/2016 Age: __ Sex: F Race: __ TECHNIQUE 17 channel EEG. DESCRIPTION The background rhythm starts out slow in the theta range and some sleep spindles are identified. It is later replaced with a normal alpha rhythm. There are no lateralizing features seen. No epileptiform discharges present. There is some muscle artifact present. Photic stimulation results in a modest driving response. INTERPRETATION This is a normal drowsy and asleep EEG. MD ELIJAH Porter/JAMIE /9:40 AM /9:52 AM
[2016-10-31 11:22] VITALS: BP 124/59; PULSE 83; RESP 19; TEMP 97.4; O2SAT 95
--- NOTE | 2016-10-31 12:03 | HHI.PR ---
Subjective Remarks Follow up visit ELYSSA, Loose stools, Hypokalemia. Pt. seen today. Drowsy. States she is "sick." Unable to describe or elaborate. Denies pain or discomfort. As per RN, patient had multiple loose stools yesterday. She had also loose stools this AM but not as frequent as yesterday. No other narcotics or sedatives given to patient. She continues to be on IV fluids and electrolyte replacements. Denies nausea or vomiting, fevers, chills. Objective Vitals Vital Signs Date Time Temp Pulse Resp B/P Pulse Ox O2 Delivery O2 Flow Rate FiO2 10/31/16 11:22 97.4 83 19 124/59 95 10/31/16 07:38 97.4 87 17 149/67 95 10/31/16 00:20 97.4 84 16 157/70 98 10/30/16 20:52 96.9 96 17 138/63 96 10/30/16 18:20 95 21 10/30/16 16:00 96.9 83 17 127/60 95 I/O 10/30/16 10/30/16 10/30/16 10/31/16 10/31/16 10/31/16 06:59 14:59 22:59 06:59 14:59 22:59 Intake Total 1449 ml 1475 ml 1452 ml 1071 ml 120 ml Output Total 600 ml Balance 1449 ml 875 ml 1452 ml 1071 ml 120 ml Intake Oral 240 ml 600 ml 480 ml 280 ml 120 ml IV Total 1209 ml 875 ml 791 ml Packed Cells 972 ml Output Urine Total 600 ml # Voids 2 3 4 # Bowel Movements 2 7 2 2 Result Diagram: 10/29/16 0516 10/30/16 1657 Imaging Last Impressions Brain MRI 10/30/16 1718 Signed Impressions: Service Date/Time: Sunday, October 30, 2016 13:05 - CONCLUSION: 1. No acute abnormality. The exam is within normal limits for age. Shawn Aden MD Carotid Artery Ultrasound 10/30/16 0000 Signed Impressions: Service Date/Time: Sunday, October 30, 2016 18:15 - CONCLUSION: Eccentric plaque at the left carotid bifurcation producing likely moderate stenotic narrowing estimated at 50-69%% Alberto Llamas MD Head CT 10/28/16 1339 Signed Impressions: Service Date/Time: Friday, October 28, 2016 14:26 - CONCLUSION: Normal examination for a patient of this age. Ignacio Ibarra MD Objective Remarks GENERAL: This is a well-nourished, well-developed patient, in no apparent distress. CARDIOVASCULAR: Regular rate and rhythm without murmurs, gallops, or rubs. RESPIRATORY: Clear to auscultation. Breath sounds equal bilaterally. No wheezes , rales, or rhonchi. GASTROINTESTINAL: Abdomen soft, non-tender, nondistended. Normal active bowel sounds. MUSCULOSKELETAL: Extremities without clubbing, cyanosis, or edema. NEURO: Drowsy. Oriented to self. Moves all ext x4 weakly. Procedures None. A/P Problem List: (1) Benzodiazepine causing adverse effect in therapeutic use ICD Code: T42.4X5A Status: Acute (2) Acute renal failure ICD Code: N17.9 Status: Acute (3) Metabolic acidosis ICD Code: E87.2 Status: Acute (4) Diarrhea ICD Code: R19.7 Status: Acute (5) ETOH abuse ICD Code: F10.10 Status: Chronic Assessment and Plan This is an 85-year-old female patient with past medical history which includes dementia, chronic colitis, hypertension, hyperlipidemia, carotid artery disease. Presents to the emergency department with multiple episodes of diarrhea over the past 5 days increased generalized weakness, confusion and hallucinations. - Adverse effect of Benzodiazepine with therapeutic use - Patient required two doses of Flumazenil 0.2mg. Neurology evaluated patient. Today, she is again drowsy, lethargic. No other sedative, hypnotics, narcotics given. DIGITAL PHOTOGRAPHER improving. Will re visit this PM and reevaluate. Acute renal injury likely secondary to dehydration- BUN 37 creatinine of 4.50 estimated GFR 9 baseline creatinine at 0.8 Also with metabolic acidosis and CO2 of 9.0 on admission. - Continue half-normal saline with 75 mEq sodium bicarbonate at 150 cc per hour - Creatinine improved 4.5 --> 3.5 --> 2.46 -->2.19 - Will continue to monitor BUN, creatinine. Hypokalemia. K+ 3.4 --> 2.5 --> 2.7 --> 2.7 --> 3.9 10/30/16 Hypomagnesemia Mg 1.1 --> 2.6. - K and Mg replaced with IV, PO. - Will further replace K+ with IV KCL. - Repeat BMP in the AM. I went to see patient again later in the afternoon. Discussed with patient's daughter. Patient is now much more alert. Conversing well. Patient and daughter reports multiple episodes of diarrhea. No blood in stool. Her diarrhea has been going on for more than a month. C. Diff negative. Cryptosporidium and Giardia negative. We will start patient on Cipro and Flagyl as well as Imodium. If improved, we will discharge patient to SNF. EtOH abuse - CIWA protocol discontinued on 10/29/2016. IF patient is agitated, hospitalist service can be called for treatment/plan. DNR. Heparin SQ. Written by Adams Fung, acting as scribe for Dr. Nieto on 10/31/16 at 11:50. The documentation accurately reflects the work performed [id number] by me on at 11:50. Discharge Planning Plan for DC today held. Pt. lethargic/ drowsy. If improved MS this PM, will plan for DC either today or enrique AM. Problem Qualifiers (1) Acute renal failure: Qualified Code: N17.9 - Acute renal failure, unspecified acute renal failure type (2) Diarrhea: Qualified Code: R19.7 - Diarrhea, unspecified type Adams Yu Oct 31, 2016 12:03 pm Travis Nieto DO Oct 31, 2016 7:24 pm
[2016-10-31 16:00] VITALS: BP 137/64; PULSE 84; RESP 20; TEMP 96.9; O2SAT 96
[2016-10-31] MEDS ORDERED: LOPERAMIDE HCL 2 MG CAP PO PRN (16:15)
[2016-10-31] MEDS ORDERED: LOPERAMIDE HCL 2 MG CAP PO ONE ×2 (16:15→17:00)
[2016-10-31] MEDS: SODIUM CHLOR 0.9% 1000 ML INJ 1,000 ML IV SCH (17:00)
[2016-10-31] MEDS: LACTOBACILLUS ACIDOPHILUS TAB PO SCH (17:27)
[2016-10-31] MEDS: metroNIDAZOLE 500 MG TAB PO SCH ×2 (17:27→22:27)
[2016-10-31] MEDS: CIPROFLOXACIN 500 MG TAB PO SCH ×2 (17:58→22:27)
[2016-10-31 20:00] VITALS: BP 126/63; PULSE 87; RESP 20; TEMP 98.2; O2SAT 95
[2016-10-31] MEDS: ATORVASTATIN 20 MG TAB PO SCH (22:27)
[2016-11-01] VITALS (7 sets, daily range): BP systolic 114–144; BP diastolic 57–67; PULSE 77–100; RESP 16–20; TEMP 96.9–100.5; O2SAT 92–96
[2016-11-01] MEDS: SODIUM CHLOR 0.9% 1000 ML INJ 1,000 ML IV SCH ×4 (01:00→23:29)
[2016-11-01] MEDS: SODIUM BICARBONATE 8.4% INJ 75 MEQ in SODIUM CHLOR 0.45% 1000 ML INJ 1,000 ML IV SCH (01:35)
[2016-11-01] MEDS: metroNIDAZOLE 500 MG TAB PO SCH ×4 (05:21→23:29)
[2016-11-01] MEDS: HEPARIN SODIUM - SQ 10,000 UNITS/ML VIAL SQ SCH ×2 (05:21→17:39)
[2016-11-01 06:12] LABS: AUTOMATED NEUTROPHIL # 5.9 TH/MM3 (1.8-7.7); BASOPHIL % 0.2 % (0.0-2.0); EOSINOPHIL # 0.5 TH/MM3 (0-0.4); EOSINOPHIL % 5.5 % (0.0-4.0); HEMATOCRIT 30.7 % (35.0-46.0); HEMO FLAGS DIFF FINAL; LYMPH % 17.6 % (9.0-44.0); LYMPHOCYTE # 1.5 TH/MM3 (1.0-4.8); MEAN CELL VOLUME 94.6 FL (80.0-100.0); MEAN CORPUSCULAR HEMOGLOBIN 32.3 PG (27.0-34.0); MEAN CORPUSCULAR HGB CONC 34.2 % (32.0-36.0); NEUT % 66.7 % (16.0-70.0); PLATELET COUNT 231 TH/MM3 (150-450); RED BLOOD COUNT 3.25 MIL/MM3 (4.00-5.30); RED CELL DISTRIBUTION WIDTH 15.1 % (11.6-17.2); WHITE BLOOD COUNT 8.8 TH/MM3 (4.0-11.0)
[2016-11-01 07:08] LABS: BICARBONATE 21.3 MEQ/L (21.0-32.0)
[2016-11-01 07:20] LABS: POTASSIUM 2.9 MEQ/L (3.5-5.1)
[2016-11-01] MEDS: FOLIC ACID 1 MG TAB PO SCH (08:24)
[2016-11-01] MEDS: CIPROFLOXACIN 500 MG TAB PO SCH (08:24)
[2016-11-01] MEDS: THIAMINE HCL 100 MG TAB PO SCH (08:24)
[2016-11-01] MEDS: LACTOBACILLUS ACIDOPHILUS TAB PO SCH ×3 (08:24→17:39)
[2016-11-01] MEDS: POTASSIUM CHLOR 20 MEQ PREMIX 100 ML IV SCH ×2 (08:24→10:39)
[2016-11-01] MEDS: ASPIRIN EC 81 MG TABEC PO SCH (08:24)
[2016-11-01] MEDS: SODIUM CHLORIDE 0.9% FLUSH 5 ML FLUSH IV FLUSH SCH ×2 (08:38→21:15)
[2016-11-01] MEDS: sulfaSALAzine 500 MG TAB PO SCH ×2 (08:53→21:14)
[2016-11-01] MEDS: ONDANSETRON HCL 4 MG/2 ML VIAL IVP PRN (10:39)
[2016-11-01] MEDS: ACETAMINOPHEN 325 MG TAB PO PRN (11:13)
--- NOTE | 2016-11-01 18:31 | HHI.PR ---
Subjective Remarks Follow up for ELYSSA, hypokalemia, generalized weakness, diarrhea. Ms. Begum is doing well. However, she complains of diarrhea that is not getting better. No fever, chills. Objective Vitals Vital Signs Date Time Temp Pulse Resp B/P Pulse Ox O2 Delivery O2 Flow Rate FiO2 11/01/16 16:00 96.9 77 20 126/67 95 11/01/16 11:44 100.5 100 16 144/67 95 11/01/16 10:41 96 21 11/01/16 07:28 97.3 82 19 138/64 96 11/01/16 00:00 98.5 77 20 117/61 95 10/31/16 20:00 98.2 87 20 126/63 95 10/31/16 18:36 21 I/O 10/31/16 10/31/16 10/31/16 11/01/16 11/01/16 11/01/16 07:00 15:00 23:00 07:00 15:00 23:00 Intake Total 1071 ml 480 ml 569 ml 834 ml 360 ml 120 ml Output Total 400 ml 300 ml 700 ml 600 ml Balance 1071 ml 80 ml 269 ml 134 ml -240 ml 120 ml Intake Oral 280 ml 480 ml 120 ml 0 ml 360 ml 120 ml IV Total 791 ml 449 ml 834 ml Output Urine Total 400 ml 300 ml 700 ml 600 ml # Voids 4 # Bowel Movements 2 0 1 2 3 Result Diagram: 11/01/16 0533 11/01/16 0533 Imaging Last Impressions Brain MRI 10/30/16 1718 Signed Impressions: Service Date/Time: Sunday, October 30, 2016 13:05 - CONCLUSION: 1. No acute abnormality. The exam is within normal limits for age. Shawn Aedn MD Carotid Artery Ultrasound 10/30/16 0000 Signed Impressions: Service Date/Time: Sunday, October 30, 2016 18:15 - CONCLUSION: Eccentric plaque at the left carotid bifurcation producing likely moderate stenotic narrowing estimated at 50-69%% Alberto Llamas MD Head CT 10/28/16 1339 Signed Impressions: Service Date/Time: Friday, October 28, 2016 14:26 - CONCLUSION: Normal examination for a patient of this age. Igncaio Ibarra MD Objective Remarks GENERAL: Sedated, wakes up on noxious stimuli. Speech is slurred, very difficult to understand. SKIN: Warm and dry. HEAD: Normocephalic. EYES: No scleral icterus. No injection or drainage. NECK: Supple, trachea midline. No JVD or lymphadenopathy. CARDIOVASCULAR: Regular rate and rhythm without murmurs, gallops, or rubs. RESPIRATORY: Breath sounds equal bilaterally. No accessory muscle use. GASTROINTESTINAL: Abdomen soft, non-tender, nondistended. MUSCULOSKELETAL: No cyanosis, or edema. BACK: Nontender without obvious deformity. No CVA tenderness. Procedures None. A/P Problem List: (1) Benzodiazepine causing adverse effect in therapeutic use ICD Code: T42.4X5A Status: Acute (2) Acute renal failure ICD Code: N17.9 Status: Acute (3) Metabolic acidosis ICD Code: E87.2 Status: Acute (4) Diarrhea ICD Code: R19.7 Status: Acute (5) ETOH abuse ICD Code: F10.10 Status: Chronic Assessment and Plan This is an 85-year-old female patient with past medical history which includes dementia, chronic colitis, hypertension, hyperlipidemia, carotid artery disease. Presents to the emergency department with multiple episodes of diarrhea over the past 5 days increased generalized weakness, confusion and hallucinations. - Adverse effect of Benzodiazepine with therapeutic use - Patient required two doses of Flumazenil 0.2mg. Neurology evaluated patient. - Resolved. Neurology cleared for discharge. - Chronic diarrhea (> 4 weeks). - Continue Cipro, Flagyl, Imodium. - Will consult GI for an evaluation. Acute renal injury likely secondary to dehydration- on Admission, BUN 37 creatinine of 4.50 estimated GFR 9 baseline creatinine at 0.8 Also with metabolic acidosis and CO2 of 9.0 on admission. - Continue NS @125cc/hour. - Creatinine improved 4.5 --> 3.5 --> 2.46 -->2.19 --> 1.19. - Will continue to monitor BUN, creatinine. Hypokalemia. K+ 3.4 --> 2.5 --> 2.7 --> 2.7 --> 3.9 --> 2.9. Hypomagnesemia Mg 1.1 --> 2.6 on 10/29/2016. - K and Mg replaced with IV, PO. - Will further replace K+ with IV KCL. - Repeat BMP in the AM. EtOH abuse - CIWA protocol discontinued on 10/29/2016. IF patient is agitated, hospitalist service can be called for treatment/plan. DNR. Heparin SQ. Problem Qualifiers (1) Acute renal failure: Qualified Code: N17.9 - Acute renal failure, unspecified acute renal failure type (2) Diarrhea: Qualified Code: R19.7 - Diarrhea, unspecified type Travis Nieto DO Nov 01, 2016 18:31
[2016-11-01] MEDS: ATORVASTATIN 20 MG TAB PO SCH (21:14)
[2016-11-02] VITALS: BP 138/62; PULSE 89; RESP 19; TEMP 97.9; O2SAT 95
[2016-11-02] MEDS: ACETAMINOPHEN 325 MG TAB PO PRN (00:37)
[2016-11-02] MEDS: CIPROFLOXACIN 500 MG TAB PO SCH ×2 (02:25→19:55)
[2016-11-02 04:00] VITALS: BP 130/62; PULSE 76; RESP 17; TEMP 98; O2SAT 95
[2016-11-02 05:15] LABS: BICARBONATE 19.9 MEQ/L (21.0-32.0); MAGNESIUM 0.8 MG/DL (1.5-2.5)
[2016-11-02] MEDS: HEPARIN SODIUM - SQ 10,000 UNITS/ML VIAL SQ SCH ×2 (06:39→18:06)
[2016-11-02] MEDS: metroNIDAZOLE 500 MG TAB PO SCH ×3 (06:39→18:03)
[2016-11-02] MEDS: sulfaSALAzine 500 MG TAB PO SCH ×2 (07:59→19:55)
[2016-11-02] MEDS: THIAMINE HCL 100 MG TAB PO SCH (07:59)
[2016-11-02] MEDS: ASPIRIN EC 81 MG TABEC PO SCH (07:59)
[2016-11-02] MEDS: FOLIC ACID 1 MG TAB PO SCH (07:59)
[2016-11-02] MEDS: LACTOBACILLUS ACIDOPHILUS TAB PO SCH ×3 (07:59→18:03)
[2016-11-02 08:00] VITALS: BP 117/62; PULSE 79; RESP 17; TEMP 97.5; O2SAT 93
[2016-11-02] MEDS: SODIUM CHLOR 0.9% 1000 ML INJ 1,000 ML IV SCH ×2 (08:02→12:38)
[2016-11-02] MEDS: SODIUM CHLORIDE 0.9% FLUSH 5 ML FLUSH IV FLUSH SCH ×2 (08:02→19:57)
[2016-11-02] MEDS ORDERED: POTASSIUM CHLORIDE 20 MEQ CONTROLLED RELEASE TAB PO ONE (10:45)
--- NOTE | 2016-11-02 11:36 | HHI.PR ---
Subjective Remarks f/u diarrhea still with watery brown diarrhea, 4x /day with no abdominal pain, cramping, N/V , fever. No note of hematochezia or melena. This has been going of for [address] Conroy, PCP Objective Vitals Vital Signs Date Time Temp Pulse Resp B/P Pulse Ox O2 Delivery O2 Flow Rate FiO2 11/02/16 08:00 97.5 79 17 117/62 93 11/02/16 04:00 98.0 76 17 130/62 95 11/02/16 01:19 20 11/02/16 00:00 97.9 89 19 138/62 95 11/01/16 21:42 92 11/01/16 20:00 98.1 83 17 114/57 95 11/01/16 16:00 96.9 77 20 126/67 95 11/01/16 11:44 100.5 100 16 144/67 95 I/O 11/01/16 11/01/16 11/01/16 11/02/16 11/02/16 11/02/16 07:00 15:00 23:00 07:00 15:00 23:00 Intake Total 834 ml 360 ml 600 ml 1740 ml Output Total 700 ml 600 ml 600 ml 300 ml Balance 134 ml -240 ml 0 ml 1440 ml Intake Oral 0 ml 360 ml 600 ml 240 ml IV Total 834 ml 1500 ml Output Urine Total 700 ml 600 ml 600 ml 300 ml # Bowel Movements 2 3 1 Result Diagram: 11/01/16 0533 11/02/16 0401 Objective Remarks Not in distress PERRL, pink conj, anicteric, no jaundice patent airway supple neck RRR, no murmurs CTAB, good effort Good BS, no abdominal tenderness or guarding, non-distended. No edema AAOx3, no focal deficits. Procedures None. A/P Problem List: (1) Benzodiazepine causing adverse effect in therapeutic use ICD Code: T42.4X5A Status: Acute (2) Acute renal failure ICD Code: N17.9 Status: Acute (3) Metabolic acidosis ICD Code: E87.2 Status: Acute (4) Diarrhea ICD Code: R19.7 Status: Acute (5) ETOH abuse ICD Code: F10.10 Status: Chronic Assessment and Plan This is an 85-year-old female patient with past medical history which includes dementia, chronic colitis, hypertension, hyperlipidemia, carotid artery disease. Presents to the emergency department with chronic diarrhea with generalized weakness, confusion and hallucinations. Encephalopathy, delirium-Adverse effect of Benzodiazepine with therapeutic use - Patient required two doses of Flumazenil 0.2mg. Neurology evaluated patient. MRI unremarkable, carotid ultrasound showed 50-69% stenosis on the left carotid bifurcation. Continue aspirin and statin. Neurology cleared patient for discharge. Chronic diarrhea (> 4 weeks). Rule out IBD. - Continue Cipro, Flagyl, Imodium. Discussed with Dr. Conroy PCP. Outside labs reviewed, had positive calprotectin, lactoferrin and secretory IgA2, possible IBD, she has h/o RA on sulfasalazine, will consult GI for an evaluation and possible need for colonoscopy. Patient on sulfasalazine. Acute renal injury likely secondary to dehydration- on Admission, BUN 37 creatinine of 4.50 estimated GFR 9 baseline creatinine at 0.8 Acute renal failure with metabolic acidosis-improving - Continue IVF, switch to normal saline with potassium chloride. Creatinine improving., Her urine output, continue IVF. Hypokalemia. replace as needed, recheck today Hypomagnesemia-replaced as needed, recheck. EtOH abuse - CIWA protocol discontinued on 10/29/2016. IF patient is agitated, hospitalist service can be called for treatment/plan. Continue thiamine DNR. Heparin SQ. Problem Qualifiers (1) Acute renal failure: Qualified Code: N17.9 - Acute renal failure, unspecified acute renal failure type (2) Diarrhea: Qualified Code: R19.7 - Diarrhea, unspecified type Madi Stockton MD Nov 02, 2016 11:36 Madi Stockton MD Nov 02, 2016 11:36
[2016-11-02 12:00] VITALS: BP 112/58; PULSE 76; RESP 17; TEMP 96.8; O2SAT 94
[2016-11-02 16:00] VITALS: BP 143/70; PULSE 93; RESP 17; TEMP 98.1; O2SAT 94
[2016-11-02] MEDS: POTASSIUM CHLORIDE INJ 10 MEQ in SODIUM CHLOR 0.45% 1000 ML INJ 1,000 ML IV SCH (18:06)
[2016-11-02 18:26] LABS: BICARBONATE 20.8 MEQ/L (21.0-32.0); POTASSIUM 3.3 MEQ/L (3.5-5.1)
[2016-11-02] MEDS: ONDANSETRON HCL 4 MG/2 ML VIAL IVP PRN (18:33)
[2016-11-02 18:39] LABS: CALCIUM-PROTEIN CORRECTED 8.1 MG/DL (8.5-10.1)
[2016-11-02] MEDS: ATORVASTATIN 20 MG TAB PO SCH (19:55)
[2016-11-02 20:00] VITALS: BP 137/76; PULSE 89; RESP 17; TEMP 99.6; O2SAT 94
[2016-11-03] VITALS: BP 126/76; PULSE 77; RESP 17; TEMP 97.8; O2SAT 96
[2016-11-03] MEDS: metroNIDAZOLE 500 MG TAB PO SCH ×5 (00:35→23:49)
[2016-11-03] MEDS: POTASSIUM CHLORIDE INJ 10 MEQ in SODIUM CHLOR 0.45% 1000 ML INJ 1,000 ML IV SCH ×3 (00:36→20:20)
[2016-11-03] MEDS: HEPARIN SODIUM - SQ 10,000 UNITS/ML VIAL SQ SCH ×2 (04:46→17:07)
[2016-11-03 05:57] LABS: BICARBONATE 19.6 MEQ/L (21.0-32.0); MAGNESIUM 0.7 MG/DL (1.5-2.5)
[2016-11-03 06:15] LABS: POTASSIUM 2.8 MEQ/L (3.5-5.1)
[2016-11-03] MEDS ORDERED: MAGNESIUM SULFATE 1 GM PREMIX 100 ML IV ONE ×2 (06:30→15:15)
[2016-11-03 06:32] LABS: CALCIUM-PROTEIN CORRECTED 8.5 MG/DL (8.5-10.1)
[2016-11-03 08:00] VITALS: BP 142/68; PULSE 88; RESP 18; TEMP 98.8; O2SAT 92
[2016-11-03] MEDS: ASPIRIN EC 81 MG TABEC PO SCH (08:02)
[2016-11-03] MEDS: LACTOBACILLUS ACIDOPHILUS TAB PO SCH ×3 (08:02→17:07)
[2016-11-03] MEDS: THIAMINE HCL 100 MG TAB PO SCH (08:02)
[2016-11-03] MEDS: POTASSIUM CHLOR 20 MEQ PREMIX 100 ML IV SCH ×2 (08:02→10:55)
[2016-11-03] MEDS: sulfaSALAzine 500 MG TAB PO SCH ×2 (08:02→20:20)
[2016-11-03] MEDS: SODIUM CHLORIDE 0.9% FLUSH 5 ML FLUSH IV FLUSH SCH ×2 (08:03→20:20)
--- NOTE | 2016-11-03 09:51 | HHI.PR ---
Subjective Remarks f/u; diarrhea still with ongoing diarrhea. no abdominal pain, nausea or vomiting. no fever. d/w the RN. Objective Vitals Vital Signs Date Time Temp Pulse Resp B/P Pulse Ox O2 Delivery O2 Flow Rate FiO2 11/03/16 08:00 98.8 88 18 142/68 92 11/03/16 00:00 97.8 77 17 126/76 96 11/02/16 20:00 99.6 89 17 137/76 94 11/02/16 16:00 98.1 93 17 143/70 94 11/02/16 12:00 96.8 76 17 112/58 94 I/O 11/02/16 11/02/16 11/02/16 11/03/16 11/03/16 11/03/16 07:00 15:00 23:00 07:00 15:00 23:00 Intake Total 1740 ml 340 ml 986 ml 1140 ml Output Total 300 ml 700 ml 800 ml 450 ml Balance 1440 ml -360 ml 186 ml 690 ml Intake Oral 240 ml 340 ml 480 ml 240 ml IV Total 1500 ml 506 ml 900 ml Output Urine Total 300 ml 700 ml 800 ml 450 ml # Bowel Movements 3 Result Diagram: 11/01/16 0533 11/03/16 0421 Imaging Last Impressions Brain MRI 10/30/16 1718 Signed Impressions: Service Date/Time: Sunday, October 30, 2016 13:05 - CONCLUSION: 1. No acute abnormality. The exam is within normal limits for age. Shawn Aden MD Carotid Artery Ultrasound 10/30/16 0000 Signed Impressions: Service Date/Time: Sunday, October 30, 2016 18:15 - CONCLUSION: Eccentric plaque at the left carotid bifurcation producing likely moderate stenotic narrowing estimated at 50-69%% Alberto Llamas MD Head CT 10/28/16 1339 Signed Impressions: Service Date/Time: Friday, October 28, 2016 14:26 - CONCLUSION: Normal examination for a patient of this age. Ignacio Ibarra MD Objective Remarks GENERAL: This is a well-nourished, well-developed patient, in no apparent distress. CARDIOVASCULAR: Regular rate and regular rhythm without murmurs, gallops, or rubs. RESPIRATORY: Clear to auscultation. Breath sounds equal bilaterally. No wheezes , rales, or rhonchi. GASTROINTESTINAL: Abdomen soft, non-tender, nondistended. Normal, active bowel sounds MUSCULOSKELETAL: Extremities without clubbing, cyanosis, or edema. NEURO: Alert & Oriented x4 to person, place, time, situation. Moves all ext x4 Procedures None. Medications and IVs Current Medications IV Flush 2 ml 2 ml UNSCH PRN IVF FLUSH AFTER USING IV ACCESS Last administered on 10/28/16 14:50; Start 10/28/16 at 13:45; Stop 10/28/16 at 17:58; Status DC Sodium Chloride 1,000 ml @ 999 mls/hr BOLUS ONCE IV Last administered on 13:47; Start 10/28/16 at 13:45; Stop 10/28/16 at 14:45; Status DC Sodium Chloride (NS 1000 ml Inj) 1,000 ml @ 150 mls/hr Q6H40M IV Last administered on 10/28/16 18:09; Start 10/28/16 at 18:00; Stop 10/28/16 at 18:36; Status DC IV Flush (NS Flush) 2 ml UNSCH PRN FLUSH FLUSH AFTER USING IV ACCESS; Start 10/28/16 at 18:00; Stop 10/28/16 at 21:41; Status DC IV Flush (NS Flush) 2 ml BID FLUSH ; Start 10/28/16 at 21:00; Stop 10/28/16 at 21: 41; Status DC Acetaminophen (Tylenol) 650 mg Q4H PRN PO Fever, Pain 1-4, Headache Last administered on 11/02/16 00:37; Start 10/28/16 at 18:00 Ondansetron HCl (Zofran Inj) 4 mg Q6H PRN IVP NAUSEA OR VOMITING Last administered on 11/02/16 18:33; Start 10/28/16 at 18:00 Bisacodyl (Dulcolax Supp) 10 mg DAILY PRN HI CONSTIPATION; Start 10/28/16 at 18: 00 Magnesium Hydroxide (Milk Of Magnesia Liq) 30 ml Q12H PRN PO CONSTIPATION; Start 10/28/16 at 18:00 Heparin Sodium (Porcine) (Heparin Inj) 5,000 units Q12H SQ Last administered on 11/03/16 04:46; Start 10/28/16 at 18:00 Naloxone HCl 0.4 mg 0.4 mg UNSCH PRN IV SEE LABEL COMMENTS; Start 10/28/16 at 18 :00 Sodium Bicarbonate 75 meq/Sodium Chloride 1,075 ml @ 150 mls/hr Q7H10M IV ; Start 10/28/16 at 18:45; Stop 10/28/16 at 18:45; Status DC Sodium Bicarbonate 50 meq/Sodium Chloride 1,050 ml @ 150 mls/hr Q7H IV ; Start 10/28/16 at 18:45; Stop 10/28/16 at 18:45; Status DC Sodium Bicarbonate/ Sodium Chloride (Sodium Bicarbonate 8.4% Inj/10/29 NS 1000 ml Inj) 1,075 ml @ 150 mls/hr Q7H10M IV Last administered on 10/31/16 11:15; Start 10/28/16 at 18:45; Stop 11/01/16 at 07:34; Status DC Aspirin (Ecotrin Ec) 81 mg DAILY PO Last administered on 11/03/16 08:02; Start 10/29/16 at 09:00 Atorvastatin Calcium (Lipitor) 20 mg HS PO Last administered on 11/02/16 19:55 ; Start 10/28/16 at 21:00 Sulfasalazine (Azulfidine) 500 mg BID PO Last administered on 11/03/16 08:02; Start 10/28/16 at 21:00 IV Flush (NS Flush) 2 ml UNSCH PRN IV FLUSH FLUSH AFTER USING IV ACCESS; Start 10/28/16 at 21:45 IV Flush (NS Flush) 2 ml BID IV FLUSH Last administered on 11/01/16 21:15; Start 10/29/16 at 09:00 Folic Acid (Folate) 1 mg DAILY PO Last administered on 11/02/16 07:59; Start at 09:00; Stop 11/03/16 at 08:59; Status DC Thiamine HCl (Vitamin B1) 100 mg DAILY PO Last administered on 11/03/16 08:02; Start 10/29/16 at 09:00 Flumazenil (Romazicon Inj) 0.2 mg Q1M PRN IV PUSH SEE LABEL COMMENTS; Start 10/28/16 at 21:45; Stop 10/28/16 at 21:50; Status DC Lorazepam (Ativan) 1 mg Q4H PRN PO CIWA 8 - 10; Start 10/28/16 at 21:45; Stop at 17:19; Status DC Lorazepam (Ativan Inj) 1 mg Q4H PRN IV PUSH CIWA 8 - 10 Last administered on 01:12; Start 10/28/16 at 21:45; Stop 10/29/16 at 17:19; Status DC Lorazepam (Ativan) 2 mg Q2H PRN PO CIWA 11-14; Start 10/28/16 at 21:45; Stop 10/29/16 at 17:19; Status DC Lorazepam (Ativan Inj) 2 mg Q2H PRN IV PUSH CIWA 11-14; Start 10/28/16 at 21:45 ; Stop 10/29/16 at 17:19; Status DC Lorazepam (Ativan Inj) 2 mg Q1H PRN IV PUSH CIWA 15-20; Start 10/28/16 at 21:45 ; Stop 10/29/16 at 17:19; Status DC Lorazepam 2 mg 2 mg Q15M PRN IV PUSH CIWA > 20; Start 10/28/16 at 21:45; Stop at 17:19; Status DC Magnesium Sulfate/ Dextrose 100 ml @ 100 mls/hr Q1H IV Last administered on 02:40; Start 10/28/16 at 23:15; Stop 10/29/16 at 01:14; Status DC Magnesium Sulfate/ Dextrose 100 ml @ 100 mls/hr Q1H IV Last administered on 08:58; Start 10/29/16 at 09:00; Stop 10/29/16 at 10:59; Status DC Magnesium Sulfate/ Dextrose 100 ml @ 100 mls/hr Q1H IV Last administered on 15:08; Start 10/29/16 at 14:00; Stop 10/29/16 at 15:59; Status DC Potassium Chloride (KCl 20 Meq Premix Inj) 100 ml @ 50 mls/hr Q2H IV Last administered on 10/29/16 12:29; Start 10/29/16 at 09:00; Stop 10/29/16 at 12:59; Status DC Potassium Chloride 30 meq 30 meq Q12HR PO Last administered on 10/30/16 21:57; Start 10/29/16 at 09:00; Stop 10/30/16 at 23:00; Status DC Potassium Chloride (KCl 20 Meq Premix Inj) 100 ml @ 50 mls/hr Q2H IV Last administered on 10/29/16 16:58; Start 10/29/16 at 15:00; Stop 10/29/16 at 18:59; Status DC Flumazenil 0.2 mg 0.2 mg Q1M PRN IV PUSH OVERSEDATION Last administered on 17:51; Start 10/29/16 at 17:15 Potassium Chloride 100 ml @ 50 mls/hr ONCE ONCE IV Last administered on 20:03; Start 10/29/16 at 19:45; Stop 10/29/16 at 21:44; Status DC Potassium Chloride 100 ml @ 50 mls/hr ONCE ONCE IV Last administered on 07:04; Start 10/30/16 at 06:30; Stop 10/30/16 at 08:29; Status DC Potassium Chloride 100 ml @ 50 mls/hr Q2H IV Last administered on 10/30/16 11: 00; Start 10/30/16 at 09:00; Stop 10/30/16 at 12:59; Status DC Potassium Chloride (KCl 20 Meq Premix Inj) 100 ml @ 50 mls/hr Q2H IV Last administered on 10/30/16 16:00; Start 10/30/16 at 14:00; Stop 10/30/16 at 17:59; Status DC Ciprofloxacin (Cipro) 500 mg Q12HR PO Last administered on 11/01/16 08:24; Start 10/31/16 at 17:00; Stop 11/01/16 at 10:39; Status DC Metronidazole (Flagyl) 500 mg Q6HR PO Last administered on 11/03/16 04:46; Start 10/31/16 at 17:00 Loperamide HCl (Imodium) 2 mg Q6H PRN PO Diarrhea; Start 10/31/16 at 16:15 Loperamide HCl 2 mg 2 mg ONCE ONCE PO Last administered on 10/31/16 17:28; Start 10/31/16 at 16:15; Stop 10/31/16 at 16:46; Status DC Sodium Chloride (NS 1000 ml Inj) 1,000 ml @ 125 mls/hr Q8H IV Last administered on 11/02/16 12:38; Start 10/31/16 at 17:00; Stop 11/02/16 at 12:51; Status DC Lactobacillus Acidophilus (Lactinex) 1 tab TID PO Last administered on 08:02; Start 10/31/16 at 18:00 Loperamide HCl 2 mg 2 mg ONCE ONCE PO Last administered on 10/31/16 17:59; Start 10/31/16 at 17:00; Stop 10/31/16 at 17:01; Status DC Potassium Chloride (KCl 20 Meq Premix Inj) 100 ml @ 50 mls/hr Q2H IV Last administered on 11/01/16 10:39; Start 11/01/16 at 08:00; Stop 11/01/16 at 11:59; Status DC Ciprofloxacin (Cipro) 500 mg Q18H PO Last administered on 11/02/16 19:55; Start 11/02/16 at 03:00 Potassium Chloride 60 meq 60 meq ONCE ONCE PO Last administered on 11/02/16 12 :37; Start 11/02/16 at 10:45; Stop 11/02/16 at 10:46; Status DC Potassium Chloride 10 meq/ Sodium Chloride 1,005 ml @ 100 mls/hr Q10H3M IV Last administered on 11/03/16 00:36; Start 11/02/16 at 14:00 Magnesium Sulfate/ Dextrose 100 ml @ 100 mls/hr ONCE ONCE IV Last administered on 11/03/16 06:26; Start 11/03/16 at 06:30; Stop 11/03/16 at 07:29; Status DC Potassium Chloride (KCl 20 Meq Premix Inj) 100 ml @ 50 mls/hr Q2H IV Last administered on 11/03/16 08:02; Start 11/03/16 at 06:30; Stop 11/03/16 at 10:29 A/P Assessment and Plan A/P Encephalopathy, delirium-Adverse effect of Benzodiazepine with therapeutic use - Neurology evaluated patient. MRI unremarkable, carotid ultrasound showed 50-69% stenosis on the left carotid bifurcation. Continue aspirin and statin. Neurology cleared patient for discharge. Chronic diarrhea (> 4 weeks). Rule out IBD. - Continue Cipro, Flagyl, Imodium. consulted GI for an evaluation and possible need for colonoscopy. Patient on sulfasalazine. Acute renal injury likely secondary to dehydration- improving- continue to monitor Hypokalemia. replace as needed, recheck today Hypomagnesemia-replaced as needed, recheck. EtOH abuse - CIWA protocol discontinued on 10/29/2016. IF patient is agitated, hospitalist service can be called for treatment/plan. Continue thiamine DNR. Heparin SQ. Obdulia Agudelo MD Nov 03, 2016 09:51
[2016-11-03 12:00] VITALS: BP 123/80; PULSE 52; RESP 18; TEMP 97.8; O2SAT 91
[2016-11-03 14:47] LABS: POTASSIUM 3.3 MEQ/L (3.5-5.1)
[2016-11-03] MEDS ORDERED: POTASSIUM CHLORIDE 10 MEQ CONTROLLED RELEASE TAB PO ONE (15:15)
[2016-11-03 16:00] VITALS: BP 127/76; PULSE 88; RESP 17; TEMP 98.5; O2SAT 96
[2016-11-03] MEDS: CIPROFLOXACIN 500 MG TAB PO SCH (16:15)
--- NOTE | 2016-11-03 16:42 | MB ---
cc: GRETA JACKSON DATE OF CONSULTATION 11/03/16 1931. REASON FOR REFERRAL Nausea, vomiting, diarrhea. HISTORY OF PRESENT ILLNESS Thank you for the consultation. An 85-year-old lady who has history of dementia. Apparently, she was diagnosed after she had a hip fracture in June of last year. The patient was doing okay, but in the last two months according to her daughter she has significant diarrhea, three to four watery bowel movements, not related to food and not accompanied with any bleeding with urgency and the patient also has nausea and vomiting for the last few weeks. The patient is not a good historian, even though she was able to answer some of the questions, but she deferred her history to her daughter whom I talked to and she gave me the history. The patient denied any fever or chills. She had some nausea and vomiting at this time according to the daughter, even though in the chart it says no nausea and vomiting. REVIEW OF SYSTEMS All 12-point negative except HPI. ALLERGIES NO KNOWN DRUG ALLERGIES. MEDICATIONS Reviewed in the chart. PAST SURGICAL HISTORY 1. Cholecystectomy. 2. Left hip placement. 3. Appendectomy. PAST MEDICAL HISTORY 1. Chronic colitis, 2. Hypertension, 3. Hyperlipidemia, 4. Carotid artery disease, 5. Dementia. SOCIAL HISTORY She lives with her daughter, no tobacco or drugs. She drinks some alcohol. FAMILY HISTORY Negative for Alzheimer's or coronary artery disease. PHYSICAL EXAMINATION GENERAL: Alert, oriented x1 in no acute distress. VITAL SIGNS: Stable. No fever or chills. HEENT: Pupils are round, reactive to light. NECK: Supple. CHEST: Clear to auscultation and percussion. CARDIAC: Regular rate and rhythm. No murmur or gallop. ABDOMEN: Soft, nondistended, nontender, positive bowel sounds. EXTREMITIES: No edema, clubbing or cyanosis. NEUROLOGIC: Neurologically intact. Alert times one to two. Nonfocal. No muscle abnormalities. PSYCHIATRIC: Appropriate with the diagnosis of dementia. LABORATORY DATA White count 8.8, hemoglobin 10.5, platelets 231, potassium 2.8. O Sodium 141, creatinine 1.15. Toxicology was negative. C diff was negative. Microbiology negative stool studies ASSESSMENT/PLAN 1. An 85-year-old lady with nausea and vomiting, severe diarrhea, hypokalemia and anemia of questionable etiology. Could be colitis. I recommend doing upper endoscopy and a colonoscopy. I discussed with the patient and her daughter the procedure and complication. They agreed to have it done. We will plan on doing that on Saturday. 2. The patient also hyperkalemic. Recommend potassium replacement and I will defer to the primary team to do that. Meanwhile we can use some antiemetics as needed. Further plan depends on the findings on the endoscopies. MD INO Rodrigues/ /12:36 PM /4:33 PM
[2016-11-03] MEDS: ONDANSETRON HCL 4 MG/2 ML VIAL IVP PRN (17:07)
[2016-11-03] MEDS ORDERED: INSULIN HUMAN REGULAR 1,000 UNITS/10 ML VIAL SQ PRN (19:00)
[2016-11-03] MEDS: SODIUM CHLORID 0.9% 500 ML IV SCH (19:00)
[2016-11-03] MEDS: LACTATED RINGER'S 1000 ML IV SCH (19:00)
[2016-11-03] MEDS ORDERED: METOPROLOL TARTRATE 25 MG TAB PO PRN (19:00)
[2016-11-03 20:00] VITALS: BP 128/68; PULSE 82; RESP 20; TEMP 98; O2SAT 94
[2016-11-03] MEDS: ATORVASTATIN 20 MG TAB PO SCH (20:20)
[2016-11-04] VITALS: BP 130/70; PULSE 78; RESP 20; TEMP 97.4; O2SAT 95
[2016-11-04] MEDS: metroNIDAZOLE 500 MG TAB PO SCH ×4 (05:00→23:48)
[2016-11-04] MEDS: HEPARIN SODIUM - SQ 10,000 UNITS/ML VIAL SQ SCH ×2 (05:54→18:21)
[2016-11-04] MEDS: POTASSIUM CHLORIDE INJ 10 MEQ in SODIUM CHLOR 0.45% 1000 ML INJ 1,000 ML IV SCH ×2 (06:12→11:21)
[2016-11-04 06:14] LABS: BICARBONATE 19.4 MEQ/L (21.0-32.0); MAGNESIUM 1.2 MG/DL (1.5-2.5); POTASSIUM 3.7 MEQ/L (3.5-5.1)
[2016-11-04 08:00] VITALS: BP 155/78; PULSE 93; RESP 17; TEMP 97.7; O2SAT 96
[2016-11-04] MEDS: SODIUM CHLORIDE 0.9% FLUSH 5 ML FLUSH IV FLUSH SCH ×2 (08:18→19:30)
[2016-11-04] MEDS: THIAMINE HCL 100 MG TAB PO SCH (08:22)
[2016-11-04] MEDS: ASPIRIN EC 81 MG TABEC PO SCH (08:22)
[2016-11-04] MEDS: sulfaSALAzine 500 MG TAB PO SCH ×2 (08:23→20:50)
[2016-11-04] MEDS: LACTOBACILLUS ACIDOPHILUS TAB PO SCH ×3 (08:23→18:21)
[2016-11-04] MEDS: CIPROFLOXACIN 500 MG TAB PO SCH (08:23)
[2016-11-04] MEDS: SODIUM CHLORID 0.9% 500 ML IV SCH (08:24)
[2016-11-04] MEDS ORDERED: POTASSIUM CHLORIDE 20 MEQ CONTROLLED RELEASE TAB PO ONE (10:45)
[2016-11-04] MEDS ORDERED: MAGNESIUM SULFATE 1 GM PREMIX 100 ML IV ONE (10:45)
--- NOTE | 2016-11-04 10:48 | HHI.PR ---
Subjective Remarks in no acute distress. had a couple of loose BM's over night. no abdominal pain, nausea or vomiting. got confused over night and now on restraints. d/w the RN. Objective Vitals Vital Signs Date Time Temp Pulse Resp B/P Pulse Ox O2 Delivery O2 Flow Rate FiO2 11/04/16 08:00 97.7 93 17 155/78 96 11/04/16 00:00 97.4 78 20 130/70 95 11/03/16 20:00 98.0 82 20 128/68 94 11/03/16 16:00 98.5 88 17 127/76 96 11/03/16 12:00 97.8 52 18 123/80 91 I/O 11/03/16 11/03/16 11/03/16 11/04/16 11/04/16 11/04/16 07:00 15:00 23:00 07:00 15:00 23:00 Intake Total 1140 ml 440 ml 360 ml 1640 ml Output Total 450 ml 900 ml 550 ml 600 ml Balance 690 ml -460 ml -190 ml 1040 ml Intake Oral 240 ml 440 ml 360 ml 440 ml IV Total 900 ml 1200 ml Output Urine Total 450 ml 900 ml 550 ml 600 ml # Bowel Movements 3 0 0 Result Diagram: 11/01/16 0533 11/04/16 0456 Imaging Last Impressions Brain MRI 10/30/16 1718 Signed Impressions: Service Date/Time: Sunday, October 30, 2016 13:05 - CONCLUSION: 1. No acute abnormality. The exam is within normal limits for age. Shawn Aden MD Carotid Artery Ultrasound 10/30/16 0000 Signed Impressions: Service Date/Time: Sunday, October 30, 2016 18:15 - CONCLUSION: Eccentric plaque at the left carotid bifurcation producing likely moderate stenotic narrowing estimated at 50-69%% Alberto Llamas MD Head CT 10/28/16 1339 Signed Impressions: Service Date/Time: Friday, October 28, 2016 14:26 - CONCLUSION: Normal examination for a patient of this age. Ignacio Ibarra MD Objective Remarks GENERAL: This is a well-nourished, well-developed patient, in no apparent distress. CARDIOVASCULAR: Regular rate and regular rhythm without murmurs, gallops, or rubs. RESPIRATORY: Clear to auscultation. Breath sounds equal bilaterally. No wheezes , rales, or rhonchi. GASTROINTESTINAL: Abdomen soft, non-tender, nondistended. Normal, active bowel sounds MUSCULOSKELETAL: Extremities without clubbing, cyanosis, or edema. NEURO: Alert & Oriented x4 to person, place, time, situation. Moves all ext x4 Procedures None. Medications and IVs Current Medications IV Flush 2 ml 2 ml UNSCH PRN IVF FLUSH AFTER USING IV ACCESS Last administered on 10/28/16 14:50; Start 10/28/16 at 13:45; Stop 10/28/16 at 17:58; Status DC Sodium Chloride 1,000 ml @ 999 mls/hr BOLUS ONCE IV Last administered on 13:47; Start 10/28/16 at 13:45; Stop 10/28/16 at 14:45; Status DC Sodium Chloride (NS 1000 ml Inj) 1,000 ml @ 150 mls/hr Q6H40M IV Last administered on 10/28/16 18:09; Start 10/28/16 at 18:00; Stop 10/28/16 at 18:36; Status DC IV Flush (NS Flush) 2 ml UNSCH PRN FLUSH FLUSH AFTER USING IV ACCESS; Start 10/28/16 at 18:00; Stop 10/28/16 at 21:41; Status DC IV Flush (NS Flush) 2 ml BID FLUSH ; Start 10/28/16 at 21:00; Stop 10/28/16 at 21: 41; Status DC Acetaminophen (Tylenol) 650 mg Q4H PRN PO Fever, Pain 1-4, Headache Last administered on 11/02/16 00:37; Start 10/28/16 at 18:00 Ondansetron HCl (Zofran Inj) 4 mg Q6H PRN IVP NAUSEA OR VOMITING Last administered on 11/03/16 17:07; Start 10/28/16 at 18:00 Bisacodyl (Dulcolax Supp) 10 mg DAILY PRN GA CONSTIPATION; Start 10/28/16 at 18: 00 Magnesium Hydroxide (Milk Of Magnesia Liq) 30 ml Q12H PRN PO CONSTIPATION; Start 10/28/16 at 18:00 Heparin Sodium (Porcine) (Heparin Inj) 5,000 units Q12H SQ Last administered on 11/03/16 17:07; Start 10/28/16 at 18:00 Naloxone HCl 0.4 mg 0.4 mg UNSCH PRN IV SEE LABEL COMMENTS; Start 10/28/16 at 18 :00 Sodium Bicarbonate 75 meq/Sodium Chloride 1,075 ml @ 150 mls/hr Q7H10M IV ; Start 10/28/16 at 18:45; Stop 10/28/16 at 18:45; Status DC Sodium Bicarbonate 50 meq/Sodium Chloride 1,050 ml @ 150 mls/hr Q7H IV ; Start 10/28/16 at 18:45; Stop 10/28/16 at 18:45; Status DC Sodium Bicarbonate/ Sodium Chloride (Sodium Bicarbonate 8.4% Inj/10/29 NS 1000 ml Inj) 1,075 ml @ 150 mls/hr Q7H10M IV Last administered on 10/31/16 11:15; Start 10/28/16 at 18:45; Stop 11/01/16 at 07:34; Status DC Aspirin (Ecotrin Ec) 81 mg DAILY PO Last administered on 11/04/16 08:22; Start 10/29/16 at 09:00 Atorvastatin Calcium (Lipitor) 20 mg HS PO Last administered on 11/03/16 20:20 ; Start 10/28/16 at 21:00 Sulfasalazine (Azulfidine) 500 mg BID PO Last administered on 11/04/16 08:23; Start 10/28/16 at 21:00 IV Flush (NS Flush) 2 ml UNSCH PRN IV FLUSH FLUSH AFTER USING IV ACCESS; Start 10/28/16 at 21:45 IV Flush (NS Flush) 2 ml BID IV FLUSH Last administered on 11/03/16 20:20; Start 10/29/16 at 09:00 Folic Acid (Folate) 1 mg DAILY PO Last administered on 11/02/16 07:59; Start at 09:00; Stop 11/03/16 at 08:59; Status DC Thiamine HCl (Vitamin B1) 100 mg DAILY PO Last administered on 11/04/16 08:22; Start 10/29/16 at 09:00 Flumazenil (Romazicon Inj) 0.2 mg Q1M PRN IV PUSH SEE LABEL COMMENTS; Start 10/28/16 at 21:45; Stop 10/28/16 at 21:50; Status DC Lorazepam (Ativan) 1 mg Q4H PRN PO CIWA 8 - 10; Start 10/28/16 at 21:45; Stop at 17:19; Status DC Lorazepam (Ativan Inj) 1 mg Q4H PRN IV PUSH CIWA 8 - 10 Last administered on 01:12; Start 10/28/16 at 21:45; Stop 10/29/16 at 17:19; Status DC Lorazepam (Ativan) 2 mg Q2H PRN PO CIWA 11-14; Start 10/28/16 at 21:45; Stop 10/29/16 at 17:19; Status DC Lorazepam (Ativan Inj) 2 mg Q2H PRN IV PUSH CIWA 11-14; Start 10/28/16 at 21:45 ; Stop 10/29/16 at 17:19; Status DC Lorazepam (Ativan Inj) 2 mg Q1H PRN IV PUSH CIWA 15-20; Start 10/28/16 at 21:45 ; Stop 10/29/16 at 17:19; Status DC Lorazepam 2 mg 2 mg Q15M PRN IV PUSH CIWA > 20; Start 10/28/16 at 21:45; Stop at 17:19; Status DC Magnesium Sulfate/ Dextrose 100 ml @ 100 mls/hr Q1H IV Last administered on 02:40; Start 10/28/16 at 23:15; Stop 10/29/16 at 01:14; Status DC Magnesium Sulfate/ Dextrose 100 ml @ 100 mls/hr Q1H IV Last administered on 08:58; Start 10/29/16 at 09:00; Stop 10/29/16 at 10:59; Status DC Magnesium Sulfate/ Dextrose 100 ml @ 100 mls/hr Q1H IV Last administered on 15:08; Start 10/29/16 at 14:00; Stop 10/29/16 at 15:59; Status DC Potassium Chloride (KCl 20 Meq Premix Inj) 100 ml @ 50 mls/hr Q2H IV Last administered on 10/29/16 12:29; Start 10/29/16 at 09:00; Stop 10/29/16 at 12:59; Status DC Potassium Chloride 30 meq 30 meq Q12HR PO Last administered on 10/30/16 21:57; Start 10/29/16 at 09:00; Stop 10/30/16 at 23:00; Status DC Potassium Chloride (KCl 20 Meq Premix Inj) 100 ml @ 50 mls/hr Q2H IV Last administered on 10/29/16 16:58; Start 10/29/16 at 15:00; Stop 10/29/16 at 18:59; Status DC Flumazenil 0.2 mg 0.2 mg Q1M PRN IV PUSH OVERSEDATION Last administered on 17:51; Start 10/29/16 at 17:15 Potassium Chloride 100 ml @ 50 mls/hr ONCE ONCE IV Last administered on 20:03; Start 10/29/16 at 19:45; Stop 10/29/16 at 21:44; Status DC Potassium Chloride 100 ml @ 50 mls/hr ONCE ONCE IV Last administered on 07:04; Start 10/30/16 at 06:30; Stop 10/30/16 at 08:29; Status DC Potassium Chloride 100 ml @ 50 mls/hr Q2H IV Last administered on 10/30/16 11: 00; Start 10/30/16 at 09:00; Stop 10/30/16 at 12:59; Status DC Potassium Chloride (KCl 20 Meq Premix Inj) 100 ml @ 50 mls/hr Q2H IV Last administered on 10/30/16 16:00; Start 10/30/16 at 14:00; Stop 10/30/16 at 17:59; Status DC Ciprofloxacin (Cipro) 500 mg Q12HR PO Last administered on 11/01/16 08:24; Start 10/31/16 at 17:00; Stop 11/01/16 at 10:39; Status DC Metronidazole (Flagyl) 500 mg Q6HR PO Last administered on 11/04/16 05:00; Start 10/31/16 at 17:00 Loperamide HCl (Imodium) 2 mg Q6H PRN PO Diarrhea Last administered on 11:00; Start 10/31/16 at 16:15 Loperamide HCl 2 mg 2 mg ONCE ONCE PO Last administered on 10/31/16 17:28; Start 10/31/16 at 16:15; Stop 10/31/16 at 16:46; Status DC Sodium Chloride (NS 1000 ml Inj) 1,000 ml @ 125 mls/hr Q8H IV Last administered on 11/02/16 12:38; Start 10/31/16 at 17:00; Stop 11/02/16 at 12:51; Status DC Lactobacillus Acidophilus (Lactinex) 1 tab TID PO Last administered on 08:23; Start 10/31/16 at 18:00 Loperamide HCl 2 mg 2 mg ONCE ONCE PO Last administered on 10/31/16 17:59; Start 10/31/16 at 17:00; Stop 10/31/16 at 17:01; Status DC Potassium Chloride (KCl 20 Meq Premix Inj) 100 ml @ 50 mls/hr Q2H IV Last administered on 11/01/16 10:39; Start 11/01/16 at 08:00; Stop 11/01/16 at 11:59; Status DC Ciprofloxacin (Cipro) 500 mg Q18H PO Last administered on 11/04/16 08:23; Start 11/02/16 at 03:00 Potassium Chloride 60 meq 60 meq ONCE ONCE PO Last administered on 11/02/16 12 :37; Start 11/02/16 at 10:45; Stop 11/02/16 at 10:46; Status DC Potassium Chloride 10 meq/ Sodium Chloride 1,005 ml @ 100 mls/hr Q10H3M IV Last administered on 11/03/16 20:20; Start 11/02/16 at 14:00 Magnesium Sulfate/ Dextrose 100 ml @ 100 mls/hr ONCE ONCE IV Last administered on 11/03/16 06:26; Start 11/03/16 at 06:30; Stop 11/03/16 at 07:29; Status DC Potassium Chloride (KCl 20 Meq Premix Inj) 100 ml @ 50 mls/hr Q2H IV Last administered on 11/03/16 10:55; Start 11/03/16 at 06:30; Stop 11/03/16 at 10:29; Status DC Polyethylene Glycol/ Electrolytes (Colyte Liq) 4,000 ml ONCE ONCE PO ; Start at 15:00; Stop 11/04/16 at 15:01 Potassium Chloride 30 meq 30 meq ONCE ONCE PO Last administered on 11/03/16t 16 :15; Start 11/03/16 at 15:15; Stop 11/03/16 at 15:16; Status DC Magnesium Sulfate/ Dextrose 100 ml @ 100 mls/hr ONCE ONCE IV Last administered on 11/03/16t 16:15; Start 11/03/16 at 15:15; Stop 11/03/16 at 16:14; Status DC Lactated Ringer's 1,000 ml @ 30 mls/hr Q24H IV ; Start 11/03/16 at 19:00 Sodium Chloride (NS 500 ml Inj) 500 ml @ 30 mls/hr [id number] IV ; Start 11/03/16 at 19:00; Stop 11/04/16 at 18:59 Insulin Human Regular (NovoLIN R INJ) See Protocol Table ... UNSCH X1 PRN SQ SEE PROTOCOL; Start 11/03/16 at 19:00; Stop 11/04/16 at 18:59 Metoprolol Tartrate (Lopressor) 25 mg UNSCH X1 PRN PO SEE LABEL COMMENTS; Start 11/03/16 at 19:00; Stop 11/04/16 at 18:59 A/P Assessment and Plan A/P Encephalopathy, delirium-Adverse effect of Benzodiazepine with therapeutic use - Neurology evaluated patient. MRI unremarkable, carotid ultrasound showed 50-69% stenosis on the left carotid bifurcation. Continue aspirin and statin. Neurology cleared patient for discharge. Chronic diarrhea (> 4 weeks). Rule out IBD. - Continue Cipro, Flagyl, Imodium. consulted GI for an evaluation and possible need for colonoscopy. Patient on sulfasalazine. -plan for endoscopy tomorrow. Acute renal injury likely secondary to dehydration- improving- continue to monitor Hypokalemia. replaced . Hypomagnesemia-replaced as needed. EtOH abuse - CIWA protocol discontinued on 10/29/2016. IF patient is agitated, hospitalist service can be called for treatment/plan. Continue thiamine DNR. Heparin SQ. Discharge Planning possible discharge within the next one-two days if stable-pending GI work-up. Obdulia Agudelo MD Nov 04, 2016 10:48
[2016-11-04] MEDS: ONDANSETRON HCL 4 MG/2 ML VIAL IVP PRN (11:21)
[2016-11-04 12:00] VITALS: BP 124/76; PULSE 89; RESP 17; TEMP 97.9; O2SAT 96
[2016-11-04] MEDS ORDERED: PEG (High)/E-LYTE SOLN 4000 ML BTL PO ONE (15:00)
[2016-11-04 16:00] VITALS: BP 138/78; PULSE 96; RESP 17; TEMP 98.6; O2SAT 97
--- NOTE | 2016-11-04 16:42 | EKG ---
Date Performed: 11/03/2016 Time Performed: 19:40:08 PTAGE: 85 years EKG: Sinus rhythm LEFT BUNDLE BRANCH BLOCK ABNORMAL ECG PREVIOUS TRACING : 10/28/2016 14.00 Since previous tracing, no significant change noted DOCTOR: Vernon Cantu Interpretating Date/Time 11/04/2016 16:40:35
[2016-11-04] MEDS: LACTATED RINGER'S 1000 ML IV SCH (18:06)
[2016-11-04 20:00] VITALS: BP 122/66; PULSE 84; RESP 18; TEMP 98; O2SAT 95
[2016-11-04] MEDS: ATORVASTATIN 20 MG TAB PO SCH (20:50)
[2016-11-05] VITALS: BP 118/69; PULSE 82; RESP 20; TEMP 97.4; O2SAT 96
[2016-11-05] MEDS: POTASSIUM CHLORIDE INJ 10 MEQ in SODIUM CHLOR 0.45% 1000 ML INJ 1,000 ML IV SCH ×3 (00:50→21:56)
[2016-11-05] MEDS: CIPROFLOXACIN 500 MG TAB PO SCH ×2 (02:05→19:41)
[2016-11-05] MEDS: HEPARIN SODIUM - SQ 10,000 UNITS/ML VIAL SQ SCH ×2 (03:58→17:46)
[2016-11-05] MEDS ORDERED: SODIUM CHLORID 0.9% 500 ML IV SCH (04:15)
[2016-11-05] MEDS: metroNIDAZOLE 500 MG TAB PO SCH ×4 (05:30→21:55)
--- NOTE | 2016-11-05 07:36 | HHI.PR ---
Subjective Remarks resting comfortably with no distress. still with diarrhea. no abdominal pain or vomiting. awaiting colonoscopy. Objective Vitals Vital Signs Date Time Temp Pulse Resp B/P Pulse Ox O2 Delivery O2 Flow Rate FiO2 11/05/16 00:00 97.4 82 20 118/69 96 11/04/16 20:00 98.0 84 18 122/66 95 11/04/16 16:00 98.6 96 17 138/78 97 11/04/16 12:00 97.9 89 17 124/76 96 11/04/16 08:00 97.7 93 17 155/78 96 I/O 11/04/16 11/04/16 11/04/16 11/05/16 11/05/16 11/05/16 07:00 15:00 23:00 07:00 15:00 23:00 Intake Total 1640 ml 2258 ml 1280 ml Output Total 600 ml 700 ml 850 ml Balance 1040 ml -700 ml 2258 ml 430 ml Intake Oral 440 ml 720 ml 480 ml IV Total 1200 ml 1538 ml 800 ml Output Urine Total 600 ml 700 ml 850 ml # Bowel Movements 0 3 0 Result Diagram: 11/01/16 0533 11/04/16 0456 Imaging Last Impressions Brain MRI 10/30/16 1718 Signed Impressions: Service Date/Time: Sunday, October 30, 2016 13:05 - CONCLUSION: 1. No acute abnormality. The exam is within normal limits for age. Shawn Aden MD Carotid Artery Ultrasound 10/30/16 0000 Signed Impressions: Service Date/Time: Sunday, October 30, 2016 18:15 - CONCLUSION: Eccentric plaque at the left carotid bifurcation producing likely moderate stenotic narrowing estimated at 50-69%% Alberto Llamas MD Head CT 10/28/16 1339 Signed Impressions: Service Date/Time: Friday, October 28, 2016 14:26 - CONCLUSION: Normal examination for a patient of this age. Ignacio Ibarra MD Objective Remarks GENERAL: This is a well-nourished, well-developed patient, in no apparent distress. CARDIOVASCULAR: Regular rate and regular rhythm without murmurs, gallops, or rubs. RESPIRATORY: Clear to auscultation. Breath sounds equal bilaterally. No wheezes , rales, or rhonchi. GASTROINTESTINAL: Abdomen soft, non-tender, nondistended. Normal, active bowel sounds MUSCULOSKELETAL: Extremities without clubbing, cyanosis, or edema. NEURO: Alert & Oriented x4 to person, place, time, situation. Moves all ext x4 Procedures None. Medications and IVs Current Medications IV Flush 2 ml 2 ml UNSCH PRN IVF FLUSH AFTER USING IV ACCESS Last administered on 10/28/16 14:50; Start 10/28/16 at 13:45; Stop 10/28/16 at 17:58; Status DC Sodium Chloride 1,000 ml @ 999 mls/hr BOLUS ONCE IV Last administered on 13:47; Start 10/28/16 at 13:45; Stop 10/28/16 at 14:45; Status DC Sodium Chloride (NS 1000 ml Inj) 1,000 ml @ 150 mls/hr Q6H40M IV Last administered on 10/28/16 18:09; Start 10/28/16 at 18:00; Stop 10/28/16 at 18:36; Status DC IV Flush (NS Flush) 2 ml UNSCH PRN FLUSH FLUSH AFTER USING IV ACCESS; Start 10/28/16 at 18:00; Stop 10/28/16 at 21:41; Status DC IV Flush (NS Flush) 2 ml BID FLUSH ; Start 10/28/16 at 21:00; Stop 10/28/16 at 21: 41; Status DC Acetaminophen (Tylenol) 650 mg Q4H PRN PO Fever, Pain 1-4, Headache Last administered on 11/02/16 00:37; Start 10/28/16 at 18:00 Ondansetron HCl (Zofran Inj) 4 mg Q6H PRN IVP NAUSEA OR VOMITING Last administered on 11/04/16 11:21; Start 10/28/16 at 18:00 Bisacodyl (Dulcolax Supp) 10 mg DAILY PRN IN CONSTIPATION; Start 10/28/16 at 18: 00 Magnesium Hydroxide (Milk Of Magnesia Liq) 30 ml Q12H PRN PO CONSTIPATION; Start 10/28/16 at 18:00 Heparin Sodium (Porcine) (Heparin Inj) 5,000 units Q12H SQ Last administered on 11/04/16 18:21; Start 10/28/16 at 18:00 Naloxone HCl 0.4 mg 0.4 mg UNSCH PRN IV SEE LABEL COMMENTS; Start 10/28/16 at 18 :00 Sodium Bicarbonate 75 meq/Sodium Chloride 1,075 ml @ 150 mls/hr Q7H10M IV ; Start 10/28/16 at 18:45; Stop 10/28/16 at 18:45; Status DC Sodium Bicarbonate 50 meq/Sodium Chloride 1,050 ml @ 150 mls/hr Q7H IV ; Start 10/28/16 at 18:45; Stop 10/28/16 at 18:45; Status DC Sodium Bicarbonate/ Sodium Chloride (Sodium Bicarbonate 8.4% Inj/10/29 NS 1000 ml Inj) 1,075 ml @ 150 mls/hr Q7H10M IV Last administered on 10/31/16 11:15; Start 10/28/16 at 18:45; Stop 11/01/16 at 07:34; Status DC Aspirin (Ecotrin Ec) 81 mg DAILY PO Last administered on 11/04/16 08:22; Start 10/29/16 at 09:00 Atorvastatin Calcium (Lipitor) 20 mg HS PO Last administered on 11/04/16 20:50 ; Start 10/28/16 at 21:00 Sulfasalazine (Azulfidine) 500 mg BID PO Last administered on 11/04/16 20:50; Start 10/28/16 at 21:00 IV Flush (NS Flush) 2 ml UNSCH PRN IV FLUSH FLUSH AFTER USING IV ACCESS; Start 10/28/16 at 21:45 IV Flush (NS Flush) 2 ml BID IV FLUSH Last administered on 11/03/16 20:20; Start 10/29/16 at 09:00 Folic Acid (Folate) 1 mg DAILY PO Last administered on 11/02/16 07:59; Start at 09:00; Stop 11/03/16 at 08:59; Status DC Thiamine HCl (Vitamin B1) 100 mg DAILY PO Last administered on 11/04/16 08:22; Start 10/29/16 at 09:00 Flumazenil (Romazicon Inj) 0.2 mg Q1M PRN IV PUSH SEE LABEL COMMENTS; Start 10/28/16 at 21:45; Stop 10/28/16 at 21:50; Status DC Lorazepam (Ativan) 1 mg Q4H PRN PO CIWA 8 - 10; Start 10/28/16 at 21:45; Stop at 17:19; Status DC Lorazepam (Ativan Inj) 1 mg Q4H PRN IV PUSH CIWA 8 - 10 Last administered on 01:12; Start 10/28/16 at 21:45; Stop 10/29/16 at 17:19; Status DC Lorazepam (Ativan) 2 mg Q2H PRN PO CIWA 11-14; Start 10/28/16 at 21:45; Stop 10/29/16 at 17:19; Status DC Lorazepam (Ativan Inj) 2 mg Q2H PRN IV PUSH CIWA 11-14; Start 10/28/16 at 21:45 ; Stop 10/29/16 at 17:19; Status DC Lorazepam (Ativan Inj) 2 mg Q1H PRN IV PUSH CIWA 15-20; Start 10/28/16 at 21:45 ; Stop 10/29/16 at 17:19; Status DC Lorazepam 2 mg 2 mg Q15M PRN IV PUSH CIWA > 20; Start 10/28/16 at 21:45; Stop at 17:19; Status DC Magnesium Sulfate/ Dextrose 100 ml @ 100 mls/hr Q1H IV Last administered on 02:40; Start 10/28/16 at 23:15; Stop 10/29/16 at 01:14; Status DC Magnesium Sulfate/ Dextrose 100 ml @ 100 mls/hr Q1H IV Last administered on 08:58; Start 10/29/16 at 09:00; Stop 10/29/16 at 10:59; Status DC Magnesium Sulfate/ Dextrose 100 ml @ 100 mls/hr Q1H IV Last administered on 15:08; Start 10/29/16 at 14:00; Stop 10/29/16 at 15:59; Status DC Potassium Chloride (KCl 20 Meq Premix Inj) 100 ml @ 50 mls/hr Q2H IV Last administered on 10/29/16 12:29; Start 10/29/16 at 09:00; Stop 10/29/16 at 12:59; Status DC Potassium Chloride 30 meq 30 meq Q12HR PO Last administered on 10/30/16 21:57; Start 10/29/16 at 09:00; Stop 10/30/16 at 23:00; Status DC Potassium Chloride (KCl 20 Meq Premix Inj) 100 ml @ 50 mls/hr Q2H IV Last administered on 10/29/16 16:58; Start 10/29/16 at 15:00; Stop 10/29/16 at 18:59; Status DC Flumazenil 0.2 mg 0.2 mg Q1M PRN IV PUSH OVERSEDATION Last administered on 17:51; Start 10/29/16 at 17:15 Potassium Chloride 100 ml @ 50 mls/hr ONCE ONCE IV Last administered on 20:03; Start 10/29/16 at 19:45; Stop 10/29/16 at 21:44; Status DC Potassium Chloride 100 ml @ 50 mls/hr ONCE ONCE IV Last administered on 07:04; Start 10/30/16 at 06:30; Stop 10/30/16 at 08:29; Status DC Potassium Chloride 100 ml @ 50 mls/hr Q2H IV Last administered on 10/30/16 11: 00; Start 10/30/16 at 09:00; Stop 10/30/16 at 12:59; Status DC Potassium Chloride (KCl 20 Meq Premix Inj) 100 ml @ 50 mls/hr Q2H IV Last administered on 10/30/16 16:00; Start 10/30/16 at 14:00; Stop 10/30/16 at 17:59; Status DC Ciprofloxacin (Cipro) 500 mg Q12HR PO Last administered on 11/01/16 08:24; Start 10/31/16 at 17:00; Stop 11/01/16 at 10:39; Status DC Metronidazole (Flagyl) 500 mg Q6HR PO Last administered on 11/05/16 05:30; Start 10/31/16 at 17:00 Loperamide HCl (Imodium) 2 mg Q6H PRN PO Diarrhea Last administered on 11:00; Start 10/31/16 at 16:15 Loperamide HCl 2 mg 2 mg ONCE ONCE PO Last administered on 10/31/16 17:28; Start 10/31/16 at 16:15; Stop 10/31/16 at 16:46; Status DC Sodium Chloride (NS 1000 ml Inj) 1,000 ml @ 125 mls/hr Q8H IV Last administered on 11/02/16 12:38; Start 10/31/16 at 17:00; Stop 11/02/16 at 12:51; Status DC Lactobacillus Acidophilus (Lactinex) 1 tab TID PO Last administered on 18:21; Start 10/31/16 at 18:00 Loperamide HCl 2 mg 2 mg ONCE ONCE PO Last administered on 10/31/16 17:59; Start 10/31/16 at 17:00; Stop 10/31/16 at 17:01; Status DC Potassium Chloride (KCl 20 Meq Premix Inj) 100 ml @ 50 mls/hr Q2H IV Last administered on 11/01/16 10:39; Start 11/01/16 at 08:00; Stop 11/01/16 at 11:59; Status DC Ciprofloxacin (Cipro) 500 mg Q18H PO Last administered on 11/05/16 02:05; Start 11/02/16 at 03:00 Potassium Chloride 60 meq 60 meq ONCE ONCE PO Last administered on 11/02/16 12 :37; Start 11/02/16 at 10:45; Stop 11/02/16 at 10:46; Status DC Potassium Chloride 10 meq/ Sodium Chloride 1,005 ml @ 100 mls/hr Q10H3M IV Last administered on 11/05/16 00:50; Start 11/02/16 at 14:00 Magnesium Sulfate/ Dextrose 100 ml @ 100 mls/hr ONCE ONCE IV Last administered on 11/03/16 06:26; Start 11/03/16 at 06:30; Stop 11/03/16 at 07:29; Status DC Potassium Chloride (KCl 20 Meq Premix Inj) 100 ml @ 50 mls/hr Q2H IV Last administered on 11/03/16 10:55; Start 11/03/16 at 06:30; Stop 11/03/16 at 10:29; Status DC Polyethylene Glycol/ Electrolytes (Colyte Liq) 4,000 ml ONCE ONCE PO Last administered on 11/04/16 16:22; Start 11/04/16 at 15:00; Stop 11/04/16 at 15:01; Status DC Potassium Chloride 30 meq 30 meq ONCE ONCE PO Last administered on 11/03/16 16 :15; Start 11/03/16 at 15:15; Stop 11/03/16 at 15:16; Status DC Magnesium Sulfate/ Dextrose 100 ml @ 100 mls/hr ONCE ONCE IV Last administered on 11/03/16 16:15; Start 11/03/16 at 15:15; Stop 11/03/16 at 16:14; Status DC Lactated Ringer's 1,000 ml @ 30 mls/hr Q24H IV ; Start 11/03/16 at 19:00; Stop 11/05/16 at 04:12; Status DC Sodium Chloride (NS 500 ml Inj) 500 ml @ 30 mls/hr [id number] IV ; Start 11/03/16 at 19:00; Stop 11/04/16 at 18:59; Status DC Insulin Human Regular (NovoLIN R INJ) See Protocol Table ... UNSCH X1 PRN SQ SEE PROTOCOL; Start 11/03/16 at 19:00; Stop 11/04/16 at 18:59; Status DC Metoprolol Tartrate (Lopressor) 25 mg UNSCH X1 PRN PO SEE LABEL COMMENTS; Start 11/03/16 at 19:00; Stop 11/04/16 at 18:59; Status DC Potassium Chloride 20 meq 20 meq ONCE ONCE PO Last administered on 11/04/16 11 :21; Start 11/04/16 at 10:45; Stop 11/04/16 at 10:47; Status DC Magnesium Sulfate/ Dextrose 100 ml @ 100 mls/hr ONCE ONCE IV Last administered on 11/04/16 11:21; Start 11/04/16 at 10:45; Stop 11/04/16 at 11:44; Status DC Sodium Chloride (NS 500 ml Inj) 500 ml @ 30 mls/hr [id number] IV ; Start 11/05/16 at 04:15; Stop 11/06/16 at 04:14 A/P Assessment and Plan A/P Encephalopathy, delirium-Adverse effect of Benzodiazepine with therapeutic use - Neurology evaluated patient. MRI unremarkable, carotid ultrasound showed 50-69% stenosis on the left carotid bifurcation. Continue aspirin and statin. Neurology cleared patient for discharge. Chronic diarrhea (> 4 weeks). Rule out IBD. - Continue Cipro, Flagyl, Imodium. consulted GI for an evaluation and possible need for colonoscopy. Patient on sulfasalazine. -plan for endoscopy today. Acute renal injury likely secondary to dehydration- improving- continue to monitor Hypokalemia. replaced . Hypomagnesemia-replaced . EtOH abuse - CIWA protocol discontinued on 10/29/2016. IF patient is agitated, hospitalist service can be called for treatment/plan. Continue thiamine DNR. Heparin SQ. Discharge Planning possible discharge within the next one-two days if stable-pending colonoscopy and GI recommendations. Obdulia Agudelo MD Nov 05, 2016 07:36
[2016-11-05 07:56] VITALS: BP 147/88; PULSE 93; RESP 17; TEMP 97.5; O2SAT 95
[2016-11-05 08:22] LABS: BICARBONATE 21.2 MEQ/L (21.0-32.0); POTASSIUM 3.7 MEQ/L (3.5-5.1)
[2016-11-05] MEDS: LACTOBACILLUS ACIDOPHILUS TAB PO SCH ×3 (08:28→17:45)
[2016-11-05] MEDS: sulfaSALAzine 500 MG TAB PO SCH ×2 (08:28→19:41)
[2016-11-05] MEDS: SODIUM CHLORIDE 0.9% FLUSH 5 ML FLUSH IV FLUSH SCH ×2 (08:29→19:40)
[2016-11-05] MEDS: ASPIRIN EC 81 MG TABEC PO SCH (08:29)
[2016-11-05] MEDS: THIAMINE HCL 100 MG TAB PO SCH (08:29)
[2016-11-05 12:00] VITALS: BP_SYST 67; PULSE 111; RESP 19; TEMP 97.7; O2SAT 96
[2016-11-05 12:30] VITALS: BP 138/79; PULSE 92; RESP 16; TEMP 98; O2SAT 96
--- NOTE | 2016-11-05 13:43 | PD.PROCEDR ---
GI Procedure REFERRING PHYSICIAN Dr. Agudelo PROCEDURE PERFORMED EGD with dilation followed by colonoscopy with snare polypectomy INDICATION FOR PROCEDURE Nausea vomiting diarrhea PROCEDURE: The procedure, risks and benefits were discussed with Ms. Begum and informed consent was obtained. Anesthesia sedated her with Diprivan. She was placed in the left lateral decubitus position. EGD: The Pentax videoscope was introduced through the oropharynx and advanced to the second portion of the duodenum under direct visualization. Retroflexion was performed in the stomach. FINDINGS: The esophagus the patient was noted to have a large Zenker's diverticulum and at the GE junction had a severe Schatzki ring I could not traverse this with the scope and so this was dilated with a savory dilator over guidewire size 18 mm post dilatation views shows a small rent but otherwise unremarkable The stomach there was a small hiatal hernia otherwise gastric mucosa was normal The duodenum this was normal Colonoscopy: The Pentax videoscope was introduced through the rectum and advanced to cecum where the ileocecal valve and appendiceal orifice were identified. Retroflexion was performed in the rectum. Colonic prep was good FINDINGS: Colonic withdrawal time greater than 6 minutes as the scope was slowly withdrawn colonic mucosa was carefully inspected the patient was noted to have 2 polyps in the distal transverse colon both sessile and adenomatous-appearing and medium in size there were 2 additional polyps in the rectum sessile adenomatous-appearing these polyps were all completely excised using hot snare technique they were retrieved for further evaluation the patient was also noted to have mild diverticulosis of the sigmoid region colonic examination otherwise unremarkable cells rectal examination and retroflexion ESTIMATED BLOOD LOSS: None SPECIMENS REMOVED: Colonic Samples COMPLICATIONS: None IMPRESSION: Large Zenker's diverticulum Severe Schatzki ring Small hiatal hernia Colon polyps Diverticulosis PLAN: Await biopsies Continue with current supportive care Recommend precautions with eating and to chew food well Consider endoscopic Zenker's diverticulectomy this will be discussed further with the patient Kelechi Cho MD Nov 05, 2016 13:42
[2016-11-05] MEDS ORDERED: PROPOFOL 200 MG/20 ML AMP IV ONE (15:58)
[2016-11-05 16:00] VITALS: BP 131/78; PULSE 97; RESP 17; TEMP 97.6; O2SAT 95
[2016-11-05] MEDS: MAGNESIUM SULFATE 1 GM PREMIX 100 ML IV SCH ×2 (19:40→19:41)
[2016-11-05] MEDS: ATORVASTATIN 20 MG TAB PO SCH (19:40)
[2016-11-05 20:00] VITALS: BP 138/87; PULSE 89; RESP 19; TEMP 97.2; O2SAT 93
[2016-11-06] VITALS: BP 113/67; PULSE 89; RESP 19; TEMP 96; O2SAT 93
[2016-11-06] MEDS: metroNIDAZOLE 500 MG TAB PO SCH ×3 (05:20→17:17)
[2016-11-06] MEDS: HEPARIN SODIUM - SQ 10,000 UNITS/ML VIAL SQ SCH ×2 (05:21→17:16)
[2016-11-06 05:31] LABS: HEMATOCRIT 32.7 % (35.0-46.0); MEAN CELL VOLUME 95.1 FL (80.0-100.0); MEAN CORPUSCULAR HEMOGLOBIN 32.1 PG (27.0-34.0); MEAN CORPUSCULAR HGB CONC 33.8 % (32.0-36.0); PLATELET COUNT 287 TH/MM3 (150-450); RED BLOOD COUNT 3.44 MIL/MM3 (4.00-5.30); RED CELL DISTRIBUTION WIDTH 15.2 % (11.6-17.2); REVIEW FLAG FINAL; WHITE BLOOD COUNT 8.8 TH/MM3 (4.0-11.0)
[2016-11-06 08:00] VITALS: BP 120/59; PULSE 91; RESP 16; TEMP 96.2; O2SAT 93
--- NOTE | 2016-11-06 08:04 | HHI.PR ---
Subjective Remarks resting with no distress. just had a large BM this morning. no fever. Objective Vitals Vital Signs Date Time Temp Pulse Resp B/P Pulse Ox O2 Delivery O2 Flow Rate FiO2 11/06/16 00:00 96.0 89 19 113/67 93 11/05/16 20:00 97.2 89 19 138/87 93 11/05/16 16:00 97.6 97 17 131/78 95 11/05/16 13:45 79 16 126/69 97 11/05/16 13:35 88 16 111/66 95 11/05/16 13:25 97.7 88 16 112/67 95 11/05/16 12:30 98.0 92 16 138/79 96 11/05/16 12:00 97.7 111 19 67/ 96 I/O 11/05/16 11/05/16 11/05/16 11/06/16 11/06/16 11/06/16 07:00 15:00 23:00 07:00 15:00 23:00 Intake Total 1280 ml 1318 ml 1145 ml 875 ml Output Total 850 ml 400 ml Balance 430 ml 918 ml 1145 ml 875 ml Intake Oral 480 ml 240 ml 360 ml 120 ml IV Total 800 ml 778 ml 785 ml 755 ml Other 300 ml Output Urine Total 850 ml 400 ml # Voids 3 3 # Bowel Movements 0 1 2 3 Result Diagram: 11/06/16 0430 11/05/16 0730 Objective Remarks GENERAL: This is a well-nourished, well-developed patient, in no apparent distress. CARDIOVASCULAR: Regular rate and regular rhythm without murmurs, gallops, or rubs. RESPIRATORY: Clear to auscultation. Breath sounds equal bilaterally. No wheezes , rales, or rhonchi. GASTROINTESTINAL: Abdomen soft, non-tender, nondistended. Normal, active bowel sounds MUSCULOSKELETAL: Extremities without clubbing, cyanosis, or edema. NEURO: Alert & Oriented x4 to person, place, time, situation. Moves all ext x4 Procedures None. A/P Assessment and Plan A/P Encephalopathy, delirium-Adverse effect of Benzodiazepine with therapeutic use - Neurology evaluated patient. MRI unremarkable, carotid ultrasound showed 50-69% stenosis on the left carotid bifurcation. Continue aspirin and statin. Neurology cleared patient for discharge. Chronic diarrhea (> 4 weeks). Rule out IBD. - Continue Cipro, Flagyl, Imodium. -s/p colonoscopy with Large Zenker's diverticulum,Severe Schatzki ring,Small hiatal hernia,Colon polyps, Diverticulosis -continue supportive care- will consider Zenker's diverticulectomy- awaiting GI follow-up and recommendations Acute renal injury likely secondary to dehydration- improving- continue to monitor Hypokalemia. replaced . Hypomagnesemia-replaced . EtOH abuse - CIWA protocol discontinued on 10/29/2016. IF patient is agitated, hospitalist service can be called for treatment/plan. Continue thiamine DNR. Heparin SQ. Discharge Planning awaiting GI follow-up. Obdulia Agudelo MD Nov 06, 2016 08:04 Hypokalemia. replaced . Hypomagnesemia-replaced . EtOH abuse - CIWA protocol discontinued on 10/29/2016. IF patient is agitated, hospitalist service can be called for treatment/plan. Continue thiamine DNR. Heparin SQ. Discharge Planning possible discharge within the next one-two days if stable-pending colonoscopy and GI recommendations. Problem Qualifiers (1) Acute renal failure: Qualified Code: N17.9 - Acute renal failure, unspecified acute renal failure type (2) Diarrhea: Qualified Code: R19.7 - Diarrhea, unspecified type Obdulia Agudelo MD Nov 06, 2016 08:04
[2016-11-06] MEDS: SODIUM CHLORIDE 0.9% FLUSH 5 ML FLUSH IV FLUSH SCH ×2 (09:00→20:24)
[2016-11-06] MEDS: ASPIRIN EC 81 MG TABEC PO SCH (09:11)
[2016-11-06] MEDS: LACTOBACILLUS ACIDOPHILUS TAB PO SCH ×3 (09:11→17:16)
[2016-11-06] MEDS: THIAMINE HCL 100 MG TAB PO SCH (09:11)
[2016-11-06] MEDS: POTASSIUM CHLORIDE INJ 10 MEQ in SODIUM CHLOR 0.45% 1000 ML INJ 1,000 ML IV SCH ×2 (09:12→17:17)
[2016-11-06] MEDS: sulfaSALAzine 500 MG TAB PO SCH ×2 (09:12→20:24)
[2016-11-06 12:00] VITALS: BP 138/76; PULSE 99; RESP 18; TEMP 97.2; O2SAT 96
[2016-11-06] MEDS: CIPROFLOXACIN 500 MG TAB PO SCH (15:14)
[2016-11-06 15:56] VITALS: BP 148/75; PULSE 92; RESP 16; TEMP 97.1; O2SAT 95
--- NOTE | 2016-11-06 18:16 | HHI.GIFU ---
Subjective Remarks Resting in chair. Just finished dinner. States that she is swallowing fine as long as she takes small bites and chews her food well. She had a bowel movement today. She is hoping to go home tomorrow because her daughter is visiting from out of state. (Vandana Maria) Objective Vitals I&O Vital Signs Date Time Temp Pulse Resp B/P Pulse Ox O2 Delivery O2 Flow Rate FiO2 11/06/16 15:56 97.1 92 16 148/75 95 11/06/16 12:00 97.2 99 18 138/76 96 11/06/16 08:00 96.2 91 16 120/59 93 11/06/16 00:00 96.0 89 19 113/67 93 11/05/16 20:00 97.2 89 19 138/87 93 I/O 11/05/16 11/05/16 11/05/16 11/06/16 11/06/16 11/06/16 07:00 15:00 23:00 07:00 15:00 23:00 Intake Total 1280 ml 1318 ml 1145 ml 875 ml 1213 ml Output Total 850 ml 400 ml 500 ml Balance 430 ml 918 ml 1145 ml 875 ml 713 ml Intake Oral 480 ml 240 ml 360 ml 120 ml 500 ml IV Total 800 ml 778 ml 785 ml 755 ml 713 ml Other 300 ml Output Urine Total 850 ml 400 ml 500 ml # Voids 3 3 # Bowel Movements 0 1 2 3 1 Laboratory Laboratory Tests Test 11/06/16 04:30 White Blood Count 8.8 Red Blood Count 3.44 Hemoglobin 11.0 Hematocrit 32.7 Mean Corpuscular Volume 95.1 Mean Corpuscular Hemoglobin 32.1 Mean Corpuscular Hemoglobin 33.8 Concent Red Cell Distribution Width 15.2 Platelet Count 287 Mean Platelet Volume 8.4 Magnesium Level 1.5 Imaging Last Impressions Brain MRI 10/30/16 1718 Signed Impressions: Service Date/Time: Sunday, October 30, 2016 13:05 - CONCLUSION: 1. No acute abnormality. The exam is within normal limits for age. Shawn Aden MD Carotid Artery Ultrasound 10/30/16 0000 Signed Impressions: Service Date/Time: Sunday, October 30, 2016 18:15 - CONCLUSION: Eccentric plaque at the left carotid bifurcation producing likely moderate stenotic narrowing estimated at 50-69%% Alberto Llamas MD Head CT 10/28/16 1334 Signed Impressions: Service Date/Time: Friday, October 28, 2016 14:26 - CONCLUSION: Normal examination for a patient of this age. Ignacio Ibarra MD Physical Exam HEENT: Normocephalic; atraumatic; no jaundice. CHEST: Chest is clear to auscultation and percussion. CARDIAC: RRR ABDOMEN: Soft, nondistended, nontender; no hepatosplenomegaly; bowel sounds are present in all four quadrants. EXTREMITIES: No clubbing, cyanosis, or edema. SKIN: Normal; no rash; no jaundice. AP OPERATOR: No focal deficits; alert and oriented times three. (Vandana Maria) Assessment and Plan Plan ASSESSMENT: - N/V. S/P EGD with dilatation (11/05/16)---> large zenker's diverticulum, severe schatzki's ring, small hiatal hernia. S/P dilatation. She is not having any further nausea/vomiting. She reports that she does not have any difficulty swallowing her food as long as she takes small bites and chews well. - Diarrhea. Improved. S/P Colonoscopy (11/05/16)---> colon polyp, diverticulosis. Pathology pending. 1 bm today. - Anemia. Stable. 11.0/32.7. - ELYSSA with multiple electrolyte abnormalities. Improving. per primary - AMS, Delirium. Improved. A/Ox 3. per primary PLAN: - RONY - Small bites, chew food well - Await pathology - Consider endoscopic zenker's diverticulectomy - Supportive care - Further recommendations to follow based on results of above - Pt seen and examined by Dr. Cho and myself and this note is written on his behalf (Vandana Maria) Physician Comments Patient seen and examined Agree with above Continue with current supportive care Monitor labs The patient is currently asymptomatic with regards to her Zenker's diverticulum and at this point no further action is recommended (Kelechi Cho MD) Vandana Maria Nov 06, 2016 18:16 Kelechi Cho MD Nov 06, 2016 22:09
[2016-11-06 20:00] VITALS: BP 129/77; PULSE 97; RESP 20; TEMP 96.7; O2SAT 95
[2016-11-06] MEDS: ATORVASTATIN 20 MG TAB PO SCH (20:24)
[2016-11-07] VITALS: BP 117/58; PULSE 98; RESP 19; TEMP 97.3; O2SAT 94
[2016-11-07] MEDS: metroNIDAZOLE 500 MG TAB PO SCH ×2 (00:20→04:57)
[2016-11-07] MEDS: POTASSIUM CHLORIDE INJ 10 MEQ in SODIUM CHLOR 0.45% 1000 ML INJ 1,000 ML IV SCH (04:34)
[2016-11-07] MEDS: HEPARIN SODIUM - SQ 10,000 UNITS/ML VIAL SQ SCH (04:59)
[2016-11-07 08:00] VITALS: BP 138/80; PULSE 99; RESP 20; TEMP 96.6; O2SAT 95
[2016-11-07] MEDS: CIPROFLOXACIN 500 MG TAB PO SCH (08:26)
[2016-11-07] MEDS: ASPIRIN EC 81 MG TABEC PO SCH (08:26)
[2016-11-07] MEDS: LACTOBACILLUS ACIDOPHILUS TAB PO SCH (08:26)
[2016-11-07] MEDS: SODIUM CHLORIDE 0.9% FLUSH 5 ML FLUSH IV FLUSH SCH (08:27)
[2016-11-07] MEDS: THIAMINE HCL 100 MG TAB PO SCH (08:27)
[2016-11-07] MEDS: sulfaSALAzine 500 MG TAB PO SCH (08:27)
--- NOTE | 2016-11-07 08:59 | HHI.PR ---
Subjective Remarks resting comfortably with no distress. had one BM over night. denies pain. d/w the RN and no acute issues over night. Objective Vitals Vital Signs Date Time Temp Pulse Resp B/P Pulse Ox O2 Delivery O2 Flow Rate FiO2 11/07/16 08:00 96.6 99 20 138/80 95 11/07/16 00:00 97.3 98 19 117/58 94 11/06/16 20:00 96.7 97 20 129/77 95 11/06/16 15:56 97.1 92 16 148/75 95 11/06/16 12:00 97.2 99 18 138/76 96 I/O 11/06/16 11/06/16 11/06/16 11/07/16 11/07/16 11/07/16 07:00 15:00 23:00 07:00 15:00 23:00 Intake Total 875 ml 1213 ml 1034 ml 980 ml Output Total 500 ml 450 ml 240 ml Balance 875 ml 713 ml 584 ml 740 ml Intake Oral 120 ml 500 ml 480 ml 120 ml IV Total 755 ml 713 ml 554 ml 860 ml Output Urine Total 500 ml 450 ml 240 ml # Voids 3 2 3 # Bowel Movements 3 1 2 3 Result Diagram: 11/06/16 0430 11/05/16 0730 Imaging Last Impressions Brain MRI 10/30/16 1718 Signed Impressions: Service Date/Time: Sunday, October 30, 2016 13:05 - CONCLUSION: 1. No acute abnormality. The exam is within normal limits for age. Shawn Aden MD Carotid Artery Ultrasound 10/30/16 0000 Signed Impressions: Service Date/Time: Sunday, October 30, 2016 18:15 - CONCLUSION: Eccentric plaque at the left carotid bifurcation producing likely moderate stenotic narrowing estimated at 50-69%% Alberto Llamas MD Head CT 10/28/16 1339 Signed Impressions: Service Date/Time: Friday, October 28, 2016 14:26 - CONCLUSION: Normal examination for a patient of this age. Ignacio Ibarra MD Objective Remarks GENERAL: This is a well-nourished, well-developed patient, in no apparent distress. CARDIOVASCULAR: Regular rate and regular rhythm without murmurs, gallops, or rubs. RESPIRATORY: Clear to auscultation. Breath sounds equal bilaterally. No wheezes , rales, or rhonchi. GASTROINTESTINAL: Abdomen soft, non-tender, nondistended. Normal, active bowel sounds MUSCULOSKELETAL: Extremities without clubbing, cyanosis, or edema. NEURO: Alert & Oriented x4 to person, place, time, situation. Moves all ext x4 Procedures EGD/ colonoscopy Medications and IVs Current Medications IV Flush 2 ml 2 ml UNSCH PRN IVF FLUSH AFTER USING IV ACCESS Last administered on 10/28/16 14:50; Start 10/28/16 at 13:45; Stop 10/28/16 at 17:58; Status DC Sodium Chloride 1,000 ml @ 999 mls/hr BOLUS ONCE IV Last administered on 13:47; Start 10/28/16 at 13:45; Stop 10/28/16 at 14:45; Status DC Sodium Chloride (NS 1000 ml Inj) 1,000 ml @ 150 mls/hr Q6H40M IV Last administered on 10/28/16 18:09; Start 10/28/16 at 18:00; Stop 10/28/16 at 18:36; Status DC IV Flush (NS Flush) 2 ml UNSCH PRN FLUSH FLUSH AFTER USING IV ACCESS; Start 10/28/16 at 18:00; Stop 10/28/16 at 21:41; Status DC IV Flush (NS Flush) 2 ml BID FLUSH ; Start 10/28/16 at 21:00; Stop 10/28/16 at 21: 41; Status DC Acetaminophen (Tylenol) 650 mg Q4H PRN PO Fever, Pain 1-4, Headache Last administered on 11/02/16 00:37; Start 10/28/16 at 18:00 Ondansetron HCl (Zofran Inj) 4 mg Q6H PRN IVP NAUSEA OR VOMITING Last administered on 11/04/16 11:21; Start 10/28/16 at 18:00 Bisacodyl (Dulcolax Supp) 10 mg DAILY PRN MS CONSTIPATION; Start 10/28/16 at 18: 00 Magnesium Hydroxide (Milk Of Magnesia Liq) 30 ml Q12H PRN PO CONSTIPATION; Start 10/28/16 at 18:00 Heparin Sodium (Porcine) (Heparin Inj) 5,000 units Q12H SQ Last administered on 11/07/16 04:59; Start 10/28/16 at 18:00 Naloxone HCl 0.4 mg 0.4 mg UNSCH PRN IV SEE LABEL COMMENTS; Start 10/28/16 at 18 :00 Sodium Bicarbonate 75 meq/Sodium Chloride 1,075 ml @ 150 mls/hr Q7H10M IV ; Start 10/28/16 at 18:45; Stop 10/28/16 at 18:45; Status DC Sodium Bicarbonate 50 meq/Sodium Chloride 1,050 ml @ 150 mls/hr Q7H IV ; Start 10/28/16 at 18:45; Stop 10/28/16 at 18:45; Status DC Sodium Bicarbonate/ Sodium Chloride (Sodium Bicarbonate 8.4% Inj/10/29 NS 1000 ml Inj) 1,075 ml @ 150 mls/hr Q7H10M IV Last administered on 10/31/16 11:15; Start 10/28/16 at 18:45; Stop 11/01/16 at 07:34; Status DC Aspirin (Ecotrin Ec) 81 mg DAILY PO Last administered on 11/07/16 08:26; Start 10/29/16 at 09:00 Atorvastatin Calcium (Lipitor) 20 mg HS PO Last administered on 11/06/16 20:24 ; Start 10/28/16 at 21:00 Sulfasalazine (Azulfidine) 500 mg BID PO Last administered on 11/07/16 08:27; Start 10/28/16 at 21:00 IV Flush (NS Flush) 2 ml UNSCH PRN IV FLUSH FLUSH AFTER USING IV ACCESS; Start 10/28/16 at 21:45 IV Flush (NS Flush) 2 ml BID IV FLUSH Last administered on 11/07/16 08:27; Start 10/29/16 at 09:00 Folic Acid (Folate) 1 mg DAILY PO Last administered on 11/02/16 07:59; Start at 09:00; Stop 11/03/16 at 08:59; Status DC Thiamine HCl (Vitamin B1) 100 mg DAILY PO Last administered on 11/07/16 08:27 ; Start 10/29/16 at 09:00 Flumazenil (Romazicon Inj) 0.2 mg Q1M PRN IV PUSH SEE LABEL COMMENTS; Start 10/28/16 at 21:45; Stop 10/28/16 at 21:50; Status DC Lorazepam (Ativan) 1 mg Q4H PRN PO CIWA 8 - 10; Start 10/28/16 at 21:45; Stop at 17:19; Status DC Lorazepam (Ativan Inj) 1 mg Q4H PRN IV PUSH CIWA 8 - 10 Last administered on 01:12; Start 10/28/16 at 21:45; Stop 10/29/16 at 17:19; Status DC Lorazepam (Ativan) 2 mg Q2H PRN PO CIWA 11-14; Start 10/28/16 at 21:45; Stop 10/29/16 at 17:19; Status DC Lorazepam (Ativan Inj) 2 mg Q2H PRN IV PUSH CIWA 11-14; Start 10/28/16 at 21:45 ; Stop 10/29/16 at 17:19; Status DC Lorazepam (Ativan Inj) 2 mg Q1H PRN IV PUSH CIWA 15-20; Start 10/28/16 at 21:45 ; Stop 10/29/16 at 17:19; Status DC Lorazepam 2 mg 2 mg Q15M PRN IV PUSH CIWA > 20; Start 10/28/16 at 21:45; Stop at 17:19; Status DC Magnesium Sulfate/ Dextrose 100 ml @ 100 mls/hr Q1H IV Last administered on 02:40; Start 10/28/16 at 23:15; Stop 10/29/16 at 01:14; Status DC Magnesium Sulfate/ Dextrose 100 ml @ 100 mls/hr Q1H IV Last administered on 08:58; Start 10/29/16 at 09:00; Stop 10/29/16 at 10:59; Status DC Magnesium Sulfate/ Dextrose 100 ml @ 100 mls/hr Q1H IV Last administered on 15:08; Start 10/29/16 at 14:00; Stop 10/29/16 at 15:59; Status DC Potassium Chloride (KCl 20 Meq Premix Inj) 100 ml @ 50 mls/hr Q2H IV Last administered on 10/29/16 12:29; Start 10/29/16 at 09:00; Stop 10/29/16 at 12:59; Status DC Potassium Chloride 30 meq 30 meq Q12HR PO Last administered on 10/30/16 21:57; Start 10/29/16 at 09:00; Stop 10/30/16 at 23:00; Status DC Potassium Chloride (KCl 20 Meq Premix Inj) 100 ml @ 50 mls/hr Q2H IV Last administered on 10/29/16 16:58; Start 10/29/16 at 15:00; Stop 10/29/16 at 18:59; Status DC Flumazenil 0.2 mg 0.2 mg Q1M PRN IV PUSH OVERSEDATION Last administered on 17:51; Start 10/29/16 at 17:15 Potassium Chloride 100 ml @ 50 mls/hr ONCE ONCE IV Last administered on 20:03; Start 10/29/16 at 19:45; Stop 10/29/16 at 21:44; Status DC Potassium Chloride 100 ml @ 50 mls/hr ONCE ONCE IV Last administered on 07:04; Start 10/30/16 at 06:30; Stop 10/30/16 at 08:29; Status DC Potassium Chloride 100 ml @ 50 mls/hr Q2H IV Last administered on 10/30/16 11: 00; Start 10/30/16 at 09:00; Stop 10/30/16 at 12:59; Status DC Potassium Chloride (KCl 20 Meq Premix Inj) 100 ml @ 50 mls/hr Q2H IV Last administered on 10/30/16 16:00; Start 10/30/16 at 14:00; Stop 10/30/16 at 17:59; Status DC Ciprofloxacin (Cipro) 500 mg Q12HR PO Last administered on 11/01/16 08:24; Start 10/31/16 at 17:00; Stop 11/01/16 at 10:39; Status DC Metronidazole (Flagyl) 500 mg Q6HR PO Last administered on 11/07/16 04:57; Start 10/31/16 at 17:00 Loperamide HCl (Imodium) 2 mg Q6H PRN PO Diarrhea Last administered on 11:00; Start 10/31/16 at 16:15 Loperamide HCl 2 mg 2 mg ONCE ONCE PO Last administered on 10/31/16 17:28; Start 10/31/16 at 16:15; Stop 10/31/16 at 16:46; Status DC Sodium Chloride (NS 1000 ml Inj) 1,000 ml @ 125 mls/hr Q8H IV Last administered on 11/02/16 12:38; Start 10/31/16 at 17:00; Stop 11/02/16 at 12:51; Status DC Lactobacillus Acidophilus (Lactinex) 1 tab TID PO Last administered on 08:26; Start 10/31/16 at 18:00 Loperamide HCl 2 mg 2 mg ONCE ONCE PO Last administered on 10/31/16 17:59; Start 10/31/16 at 17:00; Stop 10/31/16 at 17:01; Status DC Potassium Chloride (KCl 20 Meq Premix Inj) 100 ml @ 50 mls/hr Q2H IV Last administered on 11/01/16 10:39; Start 11/01/16 at 08:00; Stop 11/01/16 at 11:59; Status DC Ciprofloxacin (Cipro) 500 mg Q18H PO Last administered on 11/07/16 08:26; Start 11/02/16 at 03:00 Potassium Chloride 60 meq 60 meq ONCE ONCE PO Last administered on 11/02/16 12 :37; Start 11/02/16 at 10:45; Stop 11/02/16 at 10:46; Status DC Potassium Chloride 10 meq/ Sodium Chloride 1,005 ml @ 100 mls/hr Q10H3M IV Last administered on 11/07/16 04:34; Start 11/02/16 at 14:00 Magnesium Sulfate/ Dextrose 100 ml @ 100 mls/hr ONCE ONCE IV Last administered on 11/03/16 06:26; Start 11/03/16 at 06:30; Stop 11/03/16 at 07:29; Status DC Potassium Chloride (KCl 20 Meq Premix Inj) 100 ml @ 50 mls/hr Q2H IV Last administered on 11/03/16 10:55; Start 11/03/16 at 06:30; Stop 11/03/16 at 10:29; Status DC Polyethylene Glycol/ Electrolytes (Colyte Liq) 4,000 ml ONCE ONCE PO Last administered on 11/04/16 16:22; Start 11/04/16 at 15:00; Stop 11/04/16 at 15:01; Status DC Potassium Chloride 30 meq 30 meq ONCE ONCE PO Last administered on 11/03/16 16 :15; Start 11/03/16 at 15:15; Stop 11/03/16 at 15:16; Status DC Magnesium Sulfate/ Dextrose 100 ml @ 100 mls/hr ONCE ONCE IV Last administered on 11/03/16 16:15; Start 11/03/16 at 15:15; Stop 11/03/16 at 16:14; Status DC Lactated Ringer's 1,000 ml @ 30 mls/hr Q24H IV ; Start 11/03/16 at 19:00; Stop 11/05/16 at 04:12; Status DC Sodium Chloride (NS 500 ml Inj) 500 ml @ 30 mls/hr [id number] IV ; Start 11/03/16 at 19:00; Stop 11/04/16 at 18:59; Status DC Insulin Human Regular (NovoLIN R INJ) See Protocol Table ... UNSCH X1 PRN SQ SEE PROTOCOL; Start 11/03/16 at 19:00; Stop 11/04/16 at 18:59; Status DC Metoprolol Tartrate (Lopressor) 25 mg UNSCH X1 PRN PO SEE LABEL COMMENTS; Start 11/03/16 at 19:00; Stop 11/04/16 at 18:59; Status DC Potassium Chloride 20 meq 20 meq ONCE ONCE PO Last administered on 11/04/16 11 :21; Start 11/04/16 at 10:45; Stop 11/04/16 at 10:47; Status DC Magnesium Sulfate/ Dextrose 100 ml @ 100 mls/hr ONCE ONCE IV Last administered on 11/04/16 11:21; Start 11/04/16 at 10:45; Stop 11/04/16 at 11:44; Status DC Sodium Chloride (NS 500 ml Inj) 500 ml @ 30 mls/hr [id number] IV ; Start 11/05/16 at 04:15; Stop 11/06/16 at 04:14; Status DC Propofol 200 mg 200 mg STK-MED ONCE IV ; Start 11/05/16 at 15:58; Stop 11/05/16 at 15:59; Status DC Magnesium Sulfate/ Dextrose (Magnesium Sulfate 1 Gm Premix) 100 ml @ 100 mls/ hr Q1H IV Last administered on 11/05/16t 19:41; Start 11/05/16 at 20:00; Stop 11/05/16 at 21:59; Status DC A/P Assessment and Plan A/P Encephalopathy, delirium-Adverse effect of Benzodiazepine with therapeutic use - Neurology evaluated patient. MRI unremarkable, carotid ultrasound showed 50-69% stenosis on the left carotid bifurcation. Continue aspirin and statin. Neurology cleared patient for discharge. Chronic diarrhea (> 4 weeks). Rule out IBD. - Continue Cipro, Flagyl, Imodium. -s/p EGD and colonoscopy with Large Zenker's diverticulum,Severe Schatzki ring,Small hiatal hernia,Colon polyps, Diverticulosis -continue supportive care- Acute renal injury likely secondary to dehydration- improving- continue to monitor Hypokalemia. replaced . Hypomagnesemia-replaced . EtOH abuse - CICT protocol discontinued on 10/29/2016. IF patient is agitated, hospitalist service can be called for treatment/plan. Continue thiamine DNR. Heparin SQ. Discharge Planning cleared by GI. will dc to rehab. see med list. f/u by PCP and GI. d/w the patient and RN. d/w the daughter. time spent 31 min. Obdulia Agudelo MD Nov 07, 2016 08:59
[2016-11-07] MEDS ORDERED: VITA100T2 PO (09:01)
--- NOTE | 2016-11-07 09:01 | HHI.DCPOC ---
Discharge Care Plan Diagnosis: (1) Diarrhea Your Health Problems Are: Irregular Bowel Function Goals to Promote Your Health * To prevent worsening of your condition and complications * To maintain your health at the optimal level Directions to Meet Your Goals Take your medications as prescribed Follow your dietary instruction Follow activity as directed Keep your appointments as scheduled Take your immunizations and boosters as scheduled If your symptoms worsen call your PCP, if no PCP go to Urgent Care Center or Emergency Room Smoking is Dangerous to Your Health. Avoid second hand smoke Call the 24-hour hour crisis hotline for domestic abuse at Obdulia Agudelo MD Nov 07, 2016 09:01
--- NOTE | 2016-11-07 09:02 | HHI.DS ---
Discharge Summary Admission Date Oct 28, 2016 at 17:51 Discharge Date: Nov 07, 2016 Admitting Diagnosis ARF (1) Benzodiazepine causing adverse effect in therapeutic use ICD Code: T42.4X5A Diagnosis: Principal (2) Acute renal failure ICD Code: N17.9 Diagnosis: Principal (3) Metabolic acidosis ICD Code: E87.2 Diagnosis: Principal (4) Diarrhea ICD Code: R19.7 Diagnosis: Principal (5) ETOH abuse ICD Code: F10.10 Diagnosis: Principal Procedures EGD/ colonoscopy Brief History - From Admission This is an 85-year-old female patient with past medical history which includes dementia, chronic colitis, hypertension, hyperlipidemia, carotid artery disease. Patient was brought in by her daughter who is currently staying with her to help her with her medical needs. Patient is a poor historian therefore information gathered from patient as well as daughter and prior computerized charting. For the past 5 days patient has been having multiple episodes of diarrhea. patient has been incontinent of stool. Patient denies any blood present in the stool. Patient also denies abdominal pain. Patient has also been unable to eat or drink anything other than a few cups of Jell-O over the past 3 days. Patient's daughter who lives with her has not been sick. Patient was given ciprofloxacin by her primary care physician. Patient's daughter also became concerned when her mom began to have hallucinations this morning. Patient reported that she saw other people in the house last night and also said she saw ants crawling on the floor which were not seen by her daughter. Patient denies fevers chills nausea vomiting chest pain or shortness of breath. CBC/BMP: 11/06/16 0430 11/05/16 0730 Significant Findings Laboratory Tests Test 11/05/16 11/06/16 07:30 04:30 Chloride Level 112 MEQ/L (98-107) Blood Urea Nitrogen 4 MG/DL (7-18) Estimat Glomerular Filtration 56 ML/MIN (>89) Rate Calcium Level 7.7 MG/DL (8.5-10.1) Magnesium Level 1.0 MG/DL (1.5-2.5) Red Blood Count 3.44 MIL/MM3 (4.00-5.30) Hemoglobin 11.0 GM/DL (11.6-15.3) Hematocrit 32.7 % (35.0-46.0) Imaging Last Impressions Brain MRI 10/30/16 1718 Signed Impressions: Service Date/Time: Sunday, October 30, 2016 13:05 - CONCLUSION: 1. No acute abnormality. The exam is within normal limits for age. Shawn Aden MD Carotid Artery Ultrasound 10/30/16 0000 Signed Impressions: Service Date/Time: Sunday, October 30, 2016 18:15 - CONCLUSION: Eccentric plaque at the left carotid bifurcation producing likely moderate stenotic narrowing estimated at 50-69%% Alberto Llamas MD Head CT 10/28/16 1339 Signed Impressions: Service Date/Time: Friday, October 28, 2016 14:26 - CONCLUSION: Normal examination for a patient of this age. Ignacio Ibarra MD PE at Discharge GENERAL: This is a well-nourished, well-developed patient, in no apparent distress. CARDIOVASCULAR: Regular rate and regular rhythm without murmurs, gallops, or rubs. RESPIRATORY: Clear to auscultation. Breath sounds equal bilaterally. No wheezes , rales, or rhonchi. GASTROINTESTINAL: Abdomen soft, non-tender, nondistended. Normal, active bowel sounds MUSCULOSKELETAL: Extremities without clubbing, cyanosis, or edema. NEURO: Alert & Oriented x4 to person, place, time, situation. Moves all ext x4 Hospital Course Encephalopathy, delirium-Adverse effect of Benzodiazepine with therapeutic use - Neurology evaluated patient. MRI unremarkable, carotid ultrasound showed 50-69% stenosis on the left carotid bifurcation. Continue aspirin and statin. Neurology cleared patient for discharge. Chronic diarrhea (> 4 weeks). Rule out IBD. - Continue Cipro, Flagyl, Imodium. -s/p EGD and colonoscopy with Large Zenker's diverticulum,Severe Schatzki ring,Small hiatal hernia,Colon polyps, Diverticulosis -continue supportive care- Acute renal injury likely secondary to dehydration- improving- continue to monitor Hypokalemia. replaced . Hypomagnesemia-replaced . EtOH abuse - CIWA protocol discontinued on 10/29/2016. IF patient is agitated, hospitalist service can be called for treatment/plan. Continue thiamine DNR. Heparin SQ. Pt Condition on Discharge: Fair Discharge Disposition: Discharge to SNF Discharge Time: > 30 minutes Discharge Instructions DIET: Follow Instructions for: Heart Healthy Diet Activities you can perform: Regular-No Restrictions Follow up Referrals: Gastroenterology PCP Follow-up New Medications: Carvedilol (Coreg) 3.125 Mg Tab 3.125 MG PO BID hypertension #60 Ref 0 TAB Thiamine (Vitamin B-1) 100 Mg Tab 100 MG PO DAILY vitmain supplement Days 30 Ref 0 TAB Continued Medications: Aspirin (Aspirin) 81 Mg Tabdr 81 MG PO DAILY TAB Atorvastatin (Atorvastatin) 20 Mg Tab 20 MG PO HS Cholesterol Management #30 Ref 0 TAB Potassium Chloride ER (Potassium Chloride ER) 20 Meq Tab 20 MEQ PO DAILY Electrolyte Replacement #30 Ref 0 TAB Sulfasalazine (Sulfasalazine) 500 Mg Tab 500 MG PO BID NEB #120 Ref 0 TAB Discontinued Medications: Carvedilol (Coreg) 6.25 Mg Tab 6.25 MG PO BID #60 Ref 0 TAB Obdulia Agudelo MD Nov 07, 2016 09:02
[2016-11-07] MEDS ORDERED: CARV3.125 PO (09:04)
[2016-11-07 12:00] VITALS: BP 117/64; PULSE 94; RESP 17; TEMP 96.4; O2SAT 94
--- NOTE | 2016-11-16 13:12 | PQ ---
Physician Query Response Document PATIENT: BENI BARGER : 1930 ADMIT DATE: 10/28/2016 5:51 PM DISCH DATE: 11/07/2016 3:15 PM RESPONDING PROVIDER #: [email or web address] QUERY TEXT: Clarification of Clinical Diagnostic Findings Please clarify documentation or clinical relevance for the clinical / diagnostic findings or whether those are insignificant or unable to be further specified (lymphocytic colitis If you have any additional questions/comments and/or concerns, please do not hesitate to reach out to the CDI/Coding Hotline, Ext. [phone]. The patient's Clinical Indicators include: Pathology report has returned with the following: FINAL DIAGNOSIS: #1- COLON, TRANSVERSE, "POLYPS", BIOPSY: * ADENOMATOUS POLYP, FRAGMENTS. #2- COLON, ASCENDING, BIOPSY: * FEATURES CONSISTENT WITH LYMPHOCYTIC COLITIS. #3- COLON, DESCENDING, BIOPSY: * FEATURES CONSISTENT WITH LYMPHOCYTIC COLITIS. #4- COLON, RECTUM, "POLYP", BIOPSY: * WELL-DIFFERENTIATED NEUROENDOCRINE TUMOR (SEE COMMENT). * ADENOMATOUS POLYP. * ULCERATED AND INFLAMED HYPERPLASTIC POLYP. Query created by: Marleen Medina on 11/13/2016 12:06 PM RESPONSE TEXT: Ascending and descending colon Lymphocytic colitis / transverse colon adenomatous polyps/ with rectal well-differentiated neuroendocrine tumor/ adenomatous polyp and ulcerated and inflamed hyperplastic polyp. Electronically signed by: Obdulia Agudelo MD 11/16/2016 1:08 PM
== END 2016-11-07 15:15 | DRG 682 ==
LOC: NEPE 13:19 → NEDA 17:51 → N07A 20:08
PROVIDERS: ADMIT Internal Medicine; ATTEND Internal Medicine
PROC: 0DBL8ZX Excision of Transverse Colon, Via Natural or Artificial Opening Endoscopic, Diagnostic (ICD-10-PCS; 2016-11-05)
PROC: 0D748ZZ Dilation of Esophagogastric Junction, Via Natural or Artificial Opening Endoscopic (ICD-10-PCS; principal; 2016-11-05 12:38)
PROC: 0DBP8ZX Excision of Rectum, Via Natural or Artificial Opening Endoscopic, Diagnostic (ICD-10-PCS; 2016-11-05 12:38)
DX: N17.9 Acute kidney failure, unspecified (principal); G93.40 Encephalopathy, unspecified; E87.2 Acidosis; I65.22 Occlusion and stenosis of left carotid artery; E86.0 Dehydration; K22.2 Esophageal obstruction; F03.90 Unspecified dementia, unspecified severity, without behavioral disturbance, psychotic disturbance, mood disturbance, and anxiety; F10.10 Alcohol abuse, uncomplicated; I10 Essential (primary) hypertension; E78.5 Hyperlipidemia, unspecified; E87.6 Hypokalemia; E83.42 Hypomagnesemia; Z66 Do not resuscitate; T42.4X5A Adverse effect of benzodiazepines, initial encounter; K57.30 Diverticulosis of large intestine without perforation or abscess without bleeding; K44.9 Diaphragmatic hernia without obstruction or gangrene; K22.5 Diverticulum of esophagus, acquired; K63.5 Polyp of colon; D64.9 Anemia, unspecified; K52.832 Lymphocytic colitis; D3A.8 Other benign neuroendocrine tumors; Z91.81 History of falling; M19.90 Unspecified osteoarthritis, unspecified site; Z79.82 Long term (current) use of aspirin
CPT/HCPCS: 36600; 70450; 70551; 76937; 80048; 80053; 80307; 81001; 82140; 82607; 82805; 83735; 84132; 84155; 84484; 85025; 85027; 87328; 87329; 87493; 88305; 88341; 88342; 93005; 93880; 95819; 96360; C1769; J1644; J2060; J2405; J3475; J3480; J7030; P9612

== ENCOUNTER 2016-12-14 10:16 | Emergency (ER) | payer MEDICARE, BC ==
[~2016-12-14] VITALS: Ht 157.5 cm; Wt 47.0 kg
[~2016-12-14 10:16] MED LIST changes: -ACET325 PO; -ACETAMIN-HYDROcod 325-5 MG PO; -AMLO5 PO; +ASPI1TAB69 PO; +ATOR20TA15 PO; +CARV3.125 PO; -DOCU1CAP39 PO; -ENOX40P SQ; -LORTA5 PO; +POTA-163 PO; +SULF500T3 PO; +VITA100T2 PO; -WALKER ROLLING; -WHEELCHAIR RENTAL RA; -Z.0.WALKERFRONT
[2016-12-14 10:19] VITALS: BP 123/71; PULSE 84; RESP 14; TEMP 98.1; O2SAT 97
[2016-12-14] MEDS ORDERED: CARV6.252 PO (11:29)
[2016-12-14] MEDS ORDERED: MIRT30TA PO (11:29)
[2016-12-14] MEDS ORDERED: RANI150C PO (11:29)
[2016-12-14] MEDS ORDERED: CVS2CAP PO (11:29)
--- NOTE | 2016-12-14 12:01 | PD ---
HPI Chief Complaint: Pain: Acute or Chronic Time Seen by Provider: 11:56 Travel History International Travel<30 days: No Contact w/Intl Traveler<30days: No Traveled to known affect area: No History of Present Illness HPI Patient 86-year-old female with a history of osteoarthritis and questionable osteoporosis presenting with left heel pain. It is the plantar aspect. It began this morning when she attempted to bear weight getting out of bed. She denies any trauma or injury. She's never had any previous difficulty with the heel. Pain does not radiate. She denies any weakness or paresthesias. She denies any swelling, warmth, redness and fever. No attempts at palliation. Pain is been severe enough where she cannot bear weight. PFSH Past Medical History Arthritis: Yes Asthma: No Autoimmune Disease: No Anxiety: No Depression: No Heart Rhythm Problems: No Cancer: No Cardiovascular Problems: Yes (HBP) High Cholesterol: Yes Chemotherapy: No Chest Pain: No Congestive Heart Failure: No COPD: No Cerebrovascular Accident: No Diabetes: No Diminished Hearing: No Endocrine: No GERD: No Genitourinary: No Hiatal Hernia: No Hypertension: Yes Immune Disorder: No Musculoskeletal: No Neurologic: Yes (DEMENTIA) Psychiatric: No Reproductive: No Respiratory: No Migraines: No Radiation Therapy: No Renal Failure: No Seizures: No Sickle Cell Disease: No Sleep Apnea: No Thyroid Disease: No Ulcer: No Tetanus Vaccination: < 5 Years Influenza Vaccination: Yes Menopausal: Yes Past Surgical History Abdominal Surgery: Yes (appendectomy) AICD: No Appendectomy: Yes Arteriovenous Shunt: No Cardiac Surgery: No Ear Surgery: No Endocrine Surgery: No Eye Surgery: No Genitourinary Surgery: No Gynecologic Surgery: No Hysterectomy: Yes Insulin Pump: No Joint Replacement: No Oral Surgery: Yes (pulled teeth) Pacemaker: No Thoracic Surgery: No Other Surgery: Yes Social History Alcohol Use: No Tobacco Use: No Substance Use: No Allergies-Medications (Allergen,Severity, Reaction): Coded Allergies: Ativan (Verified Allergy, Severe, Lethargy, 12/14/16) PER DAUGHTER PT WENT UNCONSCIOUS. Reported Meds & Prescriptions Reported Meds & Active Scripts Active Reported Ranitidine (Ranitidine HCl) 150 Mg Cap 150 Mg PO BID Carvedilol 6.25 Mg Tab 6.25 Mg PO BID [facility] Anti-Diarrheal (Loperamide HCl) 2 Mg Cap 2 Mg PO BID Mirtazapine 30 Mg Tab 30 Mg PO HS Atorvastatin (Atorvastatin Calcium) 20 Mg Tab 20 Mg PO HS Sulfasalazine 500 Mg Tab 500 Mg PO BID Potassium Chloride ER (Potassium Chloride) 20 Meq Tab 10 Meq PO DAILY Aspirin 81 Mg Tabdr 81 Mg PO DAILY Review of Systems General / Constitutional: No: Fever Cardiovascular: No: Claudication Musculoskeletal: Positive: Pain (see the age), No: Limited ROM, Weakness, Cramping, Edema Neurologic: No: Weakness, Focal Abnormalities, Paresthesia, Sensory Disturbance Physical Exam Narrative GENERAL: Well-developed and well-nourished adult female in no acute distress. SKIN: Warm and dry. Good turgor without tenting. HEAD: Normocephalic and atraumatic. CARDIOVASCULAR: Regular rate and rhythm without murmurs, rubs, clicks or gallops. Dorsalis pedis and posterior tibial pulses 2+ bilaterally. Capillary refill less than 2 seconds distal tip of all toes of left foot. No pedal edema. RESPIRATORY: Clear to auscultation bilaterally with symmetrical rise and fall, no distress or use of accessory muscles. MUSCULOSKELETAL: Left ankle and foot and calf are grossly unremarkable, no lesions, edema, erythema or ecchymosis. Patient has point tenderness with palpation of the left calcaneus on the plantar aspect. There is no pain with palpation of the left ankle, dorsum of the foot, MTP joints of the left foot. Normal range of motion in flexion and extension of the left knee and ankle, freely moving all 5 toes left foot. Patient freely moving all four extremities spontaneously. Extremities without clubbing, cyanosis, or edema. No obvious deformities. NEUROLOGIC: CN II-XII grossly intact. Awake and alert. Motor grossly within normal limits. Sensation intact to the distal tip of all 5 toes left foot. Normal speech. PSYCHIATRIC: Appropriate mood and affect. Data Data Last Documented VS Vital Signs Date Time Temp Pulse Resp B/P Pulse Ox O2 Delivery O2 Flow Rate FiO2 12/14/16 10:19 98.1 84 14 123/71 97 Orders Foot, Heel Only ([id number]) (12/14/16 11:55) Ice/Cold Pack (12/14/16 11:55) Ct Foot W/O Contrast (12/14/16 ) MDM Medical Decision Making Medical Screen Exam Complete: Yes Emergency Medical Condition: Yes Interpretation(s) Last 24 hours Impressions Lower Extremity CT 12/14/16 0000 Signed Impressions: Service Date/Time: Wednesday, December 14, 2016 13:07 - CONCLUSION: 1. Diffuse patchy osteopenia with no evidence of fracture. 2. Mild osteoarthritic change. Panda Ralph MD Differential Diagnosis Plantar fasciitis versus heel spur versus stress fracture Narrative Course Workup was initiated in triage. Once a medical bed becomes available, patient will be transferred and care assumed by the next provider. Patient is a 86-year-old female with a history of osteoarthritis and questionable osteoporosis presenting with nontraumatic left calcaneal pain with weightbearing on the plantar aspect. It is point tender. There is no edema or history of trauma. She is neurovascularly intact. This most likely represents plantar fasciitis and a heel spur. She has no history of cancer. Given the possible history of osteoporosis and inability to bear weight ordered x-ray of the heel to rule out stress fracture and patient given ice. X-ray shows significant amount of osteopenia which cannot exclude stress fracture. As patient insists she is not able to bear weight and is not Butch crutches need to confirm if there is a fracture present. Ordered noncontrasted CT of the foot which showed no evidence of fracture. Patient given prescription for tramadol and recommend ice, stretching and follow-up with PCP or rn military next week.See discharge paperwork for further instructions. The plan was discussed with the patient who acknowledged their understanding and agreement. Reinforced the follow-up with primary care is critically important. Patient instructed on emergent conditions that should prompt return to ED. Diagnosis Primary Impression: Plantar fasciitis of left foot Patient Instructions: General Instructions, Plantar Fasciitis (ED), Plantar Fasciitis Exercises (GEN) Additional Instructions: Take medications as prescribed Your medications may cause drowsiness. Do not take with alcohol or sedatives. Do not operate a motor vehicle or heavy machinery while on medication. Apply ice every 1 to 2 hours as needed for pain using a frozen ice bottle to massage the bottom of the heel Avoid maneuvers that aggravate pain Stretch the foot before sitting or lying down and before standing on it Follow-up with PCP or [facility] military in 2-3 days Return to the ED for any acute worsening of symptoms Med/Other Pt SpecificInfo: Prescription(s) given Disposition: 01 DISCHARGE HOME Condition: Stable Alberto Cornell IIIb 17, 2017 12:01
--- NOTE | 2016-12-14 12:34 | RADRPT ---
EXAM DATE/TIME: 12/14/2016 12:30 [facility] COMPARISON: No previous studies available for comparison. INDICATIONS: Left heel pain, no injury. MEDICAL HISTORY: None. SURGICAL HISTORY: None. ENCOUNTER: Initial ACUITY: 1 day PAIN SCORE: 10/10 LOCATION: Left calcaneus FINDINGS: Digital artery calcifications are noted. Bones are osteoporotic. Alignment is anatomic. Fracture i s not appreciated. CONCLUSION: Osteopenia, otherwise negative. Given the degree of osteopenia a stress fracture would be difficult to exclude. Cruz Aden MD FACR on December 14, 2016 at 12:27 Board Certified Radiologist. This report was verified electronically.
--- NOTE | 2016-12-14 13:22 | RADRPT ---
EXAM DATE/TIME: 12/14/2016 13:07 [facility] COMPARISON: HEEL LEFT ([id number]), December 14, 2016, 12:30. INDICATIONS : Left heel pain starting this morning; no known injury. RADIATION DOSE: 7.29 CTDIvol (mGy) MEDICAL HISTORY : Hypertension. SURGICAL HISTORY : Left femur surgery. ENCOUNTER: Initial ACUITY: 1 day PAIN SCALE: 10/10 LOCATION: Left Foot TECHNIQUE: Volumetric scanning of the foot was performed. Using automated exposure control and adjustment of th e mA and/or kV according to patient size, radiation dose was kept as low as reasonably achievable to obtain optimal diagnostic quality images. FINDINGS: BONES: No evidence of fracture. Alignment is within normal limits. There is diffuse patchy osteopenia. JOINTS: There are mild degenerative changes with sclerosis and slight hypertrophic change. SOFT TISSUES: Muscles, tendons, and neurovascular structures are grossly unremarkable. No evidence of mass, organiz ed fluid collection, or foreign body. CONCLUSION: 1. Diffuse patchy osteopenia with no evidence of fracture. 2. Mild osteoarthritic change. Panda Ralph MD on December 14, 2016 at 13:18 Board Certified Radiologist. This report was verified electronically.
[2016-12-14] MEDS ORDERED: TRAM50TA PO (14:11)
== END 2016-12-14 14:15 | disposition home or self-care (01) ==
LOC: NETRI 10:16
DX: M72.2 Plantar fascial fibromatosis (principal); E78.00 Pure hypercholesterolemia, unspecified; I10 Essential (primary) hypertension; M19.90 Unspecified osteoarthritis, unspecified site
CPT/HCPCS: 73650; 73700

== ENCOUNTER 2017-01-04 13:54 | Inpatient (IN) | payer MEDICARE, BC ==
[~2017-01-04] VITALS: Ht 154.9 cm; Wt 57.4 kg
[~2017-01-04 13:54] MED LIST changes: -CARV3.125 PO; +CARV6.252 PO; +CVS2CAP PO; +MIRT30TA PO; +RANI150C PO; +TRAM50TA PO; -VITA100T2 PO
[2017-01-04 13:55] VITALS: BP 109/56; PULSE 88; RESP 15; TEMP 99.4; O2SAT 96
[2017-01-04] MEDS ORDERED: SODIUM CHLOR 0.9% 1000 ML INJ 1,000 ML IV SCH (14:22)
[2017-01-04] MEDS ORDERED: ARIC5TAB PO (14:34)
[2017-01-04 14:58] LABS: HEMATOCRIT 32.9 % (35.0-46.0); MEAN CELL VOLUME 95.9 FL (80.0-100.0); MEAN CORPUSCULAR HGB CONC 33.4 % (32.0-36.0); PLATELET COUNT 319 TH/MM3 (150-450); RED BLOOD COUNT 3.44 MIL/MM3 (4.00-5.30); RED CELL DISTRIBUTION WIDTH 14.1 % (11.6-17.2); WHITE BLOOD COUNT 23.1 TH/MM3 (4.0-11.0)
--- NOTE | 2017-01-04 15:01 | PD ---
HPI Chief Complaint: GI Complaint Time Seen by Provider: 14:56 Travel History International Travel<30 days: No Contact w/Intl Traveler<30days: No Traveled to known affect area: No History of Present Illness HPI 86-year-old female that presents to the ED for evaluation of diarrhea, lethargy , loss of appetite and nausea. Patient has a history of dementia and per family member daughter who is taking care of the patient she has been more altered for the past 3 days than usual. Since about Saturday she's been complaining of diarrhea. She does have a history of colitis and follows with Dr. Roque for GI where she was given prednisone about 2 weeks ago for diarrhea which improved but this time she's been having more widely diarrhea which is more frequent with abdominal pain as well as nausea and altered mental status. This is what made the daughter concerned as last time she had something like this in November when she was out there and she did not eat she develop acute kidney injury had to be in the hospital for almost 10 days. Denies what made her come here. Per patient she has lower abdominal pain which is cramping. Per patient she has no blood or hard stools but she does have liquidy diarrhea which is more frequent. She has not seen anybody for this. Per daughter patient has lost her appetite do not drink or eat anything. She does appear to be more altered making more bizarre statements but mostly she is more lethargic which is what is concerning for her. This is been ongoing for about 3 days worse today. Per daughter her mental status has deteriorated since this morning and continues to deteriorate. Pain per patient is 6 out of 10. Does not radiate and stays mainly in the lower abdomen. PFSH Past Medical History Arthritis: Yes Asthma: No Autoimmune Disease: No Anxiety: No Depression: No Heart Rhythm Problems: No Cancer: No Cardiovascular Problems: Yes (HBP) High Cholesterol: Yes Chemotherapy: No Chest Pain: No Congestive Heart Failure: No COPD: No Cerebrovascular Accident: No Diabetes: No Diminished Hearing: No Endocrine: No Gastrointestinal Disorders: Yes (COLITIS, FINISHED RX OF PREDNISONE) GERD: No Genitourinary: No Hiatal Hernia: No Hypertension: Yes Immune Disorder: No Musculoskeletal: Yes (L FEMUR FX) Neurologic: Yes (DEMENTIA) Psychiatric: No Reproductive: No Respiratory: No Migraines: No Radiation Therapy: No Renal Failure: No Seizures: No Sickle Cell Disease: No Sleep Apnea: No Thyroid Disease: No Ulcer: No ?: Not Menopausal: Yes Past Surgical History Abdominal Surgery: Yes (appendectomy) AICD: No Appendectomy: Yes Arteriovenous Shunt: No Cardiac Surgery: No Ear Surgery: No Endocrine Surgery: No Eye Surgery: No Genitourinary Surgery: No Gynecologic Surgery: No Hysterectomy: Yes Insulin Pump: No Joint Replacement: No Oral Surgery: Yes (pulled teeth) Pacemaker: No Thoracic Surgery: No Other Surgery: Yes Social History Alcohol Use: No Tobacco Use: No Substance Use: No Allergies-Medications (Allergen,Severity, Reaction): Coded Allergies: Ativan (Verified Allergy, Severe, Lethargy, 12/14/16) PER DAUGHTER PT WENT UNCONSCIOUS. Reported Meds & Prescriptions Reported Meds & Active Scripts Active Tramadol (Tramadol HCl) 50 Mg Tab 50 Mg PO Q8H PRN Reported Aricept (Donepezil) 5 Mg Tab 5 Mg PO HS Ranitidine (Ranitidine HCl) 150 Mg Cap 150 Mg PO BID Carvedilol 6.25 Mg Tab 6.25 Mg PO BID [facility] Anti-Diarrheal (Loperamide HCl) 2 Mg Cap 2 Mg PO BID Mirtazapine 30 Mg Tab 30 Mg PO HS Atorvastatin (Atorvastatin Calcium) 20 Mg Tab 20 Mg PO HS Sulfasalazine 500 Mg Tab 500 Mg PO BID Potassium Chloride ER (Potassium Chloride) 20 Meq Tab 10 Meq PO DAILY Aspirin 81 Mg Tabdr 81 Mg PO DAILY Review of Systems ROS Limitations: Altered Mental Status, Poor Historian General / Constitutional: Positive: Chills, No: Fever, Weight Gain, Weight Loss, Other Eyes: No: Diploplia, Blurred Vision, Photophobia, Drainage, Redness, Foreign Body Sensation, Pain, Tearing, Blind Spots, Visual changes, Blindness, Other HENT: No: Headaches, Vertigo, Lightheadedness, Sore Throat, Rhinitis, Rhinorrhea, Congestion, Nosebleed, Neck Stiffness, Neck Pain, Masses, Gingival Bleeding, Dental Difficulties, Ear Discharge, Earache, Other Cardiovascular: No: Chest Pain or Discomfort, Palpitations, Irregular Rhythm, Tachycardia, Diaphoresis, Syncope, Dyspnea on exertion, Varicosities, Edema, Cyanosis, Varicosities, Phlebitis, Claudication, Other Respiratory: No: Cough, Shortness of Breath, Wheezing, Sneezing, Orthopnea, Hemoptysis, Stridor, Night Sweats, Pleuritic Pain, Other Gastrointestinal: Positive: Nausea, Diarrhea, Abdominal Pain, Changes in Bowel Habits, No: Vomiting, Hematemesis, Hematochezia, Constipation, Indigestion, Dysphagia, Loss of Appetite, Other Genitourinary: No: Urgency, Frequency, Dysuria, Nocturia, Hematuria, Decreased Urinary Output, Oliguria, Hesitancy, Dribbling, Incontinence, Pelvic Pain, Flank Pain, Dyspareunia, Discharge, Dysmenorrhea, Menorrhagia, Metorrhagia, Vaginal Bleeding, Other Musculoskeletal: Positive: Weakness, No: Myalgias, Arthralgias, Limited ROM, Cramping, Edema, Pain, Atrophy, Other Skin: No Rash, No Itching, No Dryness, No Lumps, No Hives, No Change in Pigmentation, No Change in nails, No Alopecia, No Lesions, No Breast Lumps, No Breast Tenderness, No Breast Swelling, No Other Neurologic: Positive: Weakness, Change in Mentation, No: Dizziness, Syncope, Focal Abnormalities, Coordination Problem, Tremor, Ataxia, Headache, Slurred Speech, Paresthesia, Incontinence, Seizures, Sensory Disturbance, Other Psychiatric: No: Anxiety, Depression, Suicidal Ideations, Disorder of Thought, Mood Disorder, Substance Abuse, Homicidal Ideation, Other Endocrine: No: Heat Intolerance, Cold Intolerance, Polyuria, Polydipsia, Other Hematologic/Lymphatic: No: Easy Bruising, Lymph Node Enlargement, Other Physical Exam Exam Limitations: Altered Mental Status, Poor Historian Narrative GENERAL: SKIN: Warm and dry. HEAD: Atraumatic. Normocephalic. EYES: Pupils equal and round. No scleral icterus. No injection or drainage. ENT: No nasal bleeding or discharge. Mucous membranes pink and moist. Tongue is midline. No uvula deviation. NECK: Trachea midline. No JVD. CARDIOVASCULAR: Regular rate and rhythm. no murmurs, S3. S4. RESPIRATORY: No accessory muscle use. Clear to auscultation. Breath sounds equal bilaterally. GASTROINTESTINAL: Abdomen soft, non-tender, nondistended. Hepatic and splenic margins not palpable. MUSCULOSKELETAL: Extremities without clubbing, cyanosis, or edema. No obvious deformities. Full range of motion of the upper and lower extremities bilaterally. 2+ pulses bilaterally. NEUROLOGICAL: Awake and alert and oriented to person and place. No obvious cranial nerve deficits. Motor grossly within normal limits. Five out of 5 muscle strength in the arms and legs. Normal speech. PSYCHIATRIC: Altered mood and affect; insight and judgment diminished Data Data Last Documented VS Vital Signs Date Time Temp Pulse Resp B/P Pulse Ox O2 Delivery O2 Flow Rate FiO2 01/04/17 13:55 99.4 88 15 109/56 96 Orders Complete Blood Count With Diff (01/04/17 14:22) Comprehensive Metabolic Panel (01/04/17 14:22) Lipase (01/04/17 14:22) Lactic Acid (01/04/17:22) Prothrombin Time / Inr (Pt) (01/04/17 14:22) Act Partial Throm Time (Ptt) (01/04/17:) Urinalysis - C+S If Indicated (01/04/17:) Iv Access Insert/Monitor (01/04/17 14:22) Ecg Monitoring (01/04/17:22) Oximetry (01/04/17:22) Sodium Chlor 0.9% 1000 Ml Inj (Ns 1000 M (01/04/17 14:22) C Diff Toxin Pcr (01/04/17 14:22) Blood Culture (01/04/17 15:22) Cath For Specimen (01/04/17 15:39) Cath For Specimen (01/04/17 15:42) Piperacil-Tazo 2.25 Gm Premix (Zosyn 2.2 (01/04/17 15:45) Ct Abd/Pel W/O Iv Contrast (01/04/17 14:29) Metronidazole 500 Mg Inj (Flagyl 500 Mg (01/04/17 16:45) Admit Order (Ed Use Only) (01/04/17 17:24) Aspirin Ec (Ecotrin Ec) (01/05/17 09:00) Carvedilol (Coreg) (01/04/17 21:00) Donepezil (Aricept) (01/04/17 21:00) Mirtazapine (Remeron) (01/04/17 21:00) Sulfasalazine (Azulfidine) (01/04/17 21:00) Labs Laboratory Tests Test 01/04/17 01/04/17 14:50 16:55 White Blood Count 23.1 TH/MM3 Red Blood Count 3.44 MIL/MM3 Hemoglobin 11.0 GM/DL Hematocrit 32.9 % Mean Corpuscular Volume 95.9 FL Mean Corpuscular Hemoglobin 32.0 PG Mean Corpuscular Hemoglobin 33.4 % Concent Red Cell Distribution Width 14.1 % Platelet Count 319 TH/MM3 Mean Platelet Volume 8.6 FL Neutrophils (%) (Auto) % Lymphocytes (%) (Auto) % Monocytes (%) (Auto) % Eosinophils (%) (Auto) % Basophils (%) (Auto) % Neutrophils # (Auto) TH/MM3 Lymphocytes # (Auto) TH/MM3 Monocytes # (Auto) TH/MM3 Eosinophils # (Auto) TH/MM3 Basophils # (Auto) TH/MM3 CBC Comment AUTO DIFF Differential Total Cells 100 Counted Neutrophils % (Manual) 75 % Band Neutrophils % 6 % Lymphocytes % 13 % Monocytes % 4 % Eosinophils % 1 % Basophils % 1 % Neutrophils # (Manual) 18.7 TH/MM3 Differential Comment FINAL DIFF MANUAL Platelet Estimate NORMAL Platelet Morphology Comment NORMAL Target Cells 1+ Prothrombin Time 11.7 SEC Prothromb Time International 1.1 RATIO Ratio Activated Partial 28.9 SEC Thromboplast Time Sodium Level 134 MEQ/L Potassium Level 4.2 MEQ/L Chloride Level 99 MEQ/L Carbon Dioxide Level 24.6 MEQ/L Anion Gap 10 MEQ/L Blood Urea Nitrogen 15 MG/DL Creatinine 0.94 MG/DL Estimat Glomerular Filtration 57 ML/MIN Rate Random Glucose 99 MG/DL Lactic Acid Level 2.1 mmol/L Calcium Level 8.1 MG/DL Total Bilirubin 0.6 MG/DL Aspartate Amino Transf 27 U/L (AST/SGOT) Alanine Aminotransferase 43 U/L (ALT/SGPT) Alkaline Phosphatase 96 U/L Total Protein 5.8 GM/DL Albumin 2.2 GM/DL Lipase 81 U/L Urine Color DARK-YELLOW Urine Turbidity CLEAR Urine pH 7.5 Urine Specific [place] 1.017 Urine Protein 30 mg/dL Urine Glucose (UA) NEG mg/dL Urine Ketones NEG mg/dL Urine Occult Blood NEG Urine Nitrite NEG Urine Bilirubin NEG Urine Urobilinogen LESS THAN 2.0 MG/DL Urine Leukocyte Esterase NEG Urine WBC 2 /hpf Microscopic Urinalysis Comment CULT NOT INDICATED MDM Medical Decision Making Medical Screen Exam Complete: Yes Emergency Medical Condition: Yes Medical Record Reviewed: Yes Interpretation(s) CBC & BMP Diagram 01/04/17 14:50 LFTs and lipase WNl coags WNL CT of abdomen showed pancolitis possible C. Diff. Lactic of 2.1 Differential Diagnosis renal failure versus dehydration versus diarrhea versus altered mental status versus diverticulitis versus acute abdomen Narrative Course 86-year-old female that presents to the ED for evaluation of altered mental status, diarrhea and failure to thrive. Patient was properly examined and was found to have signs and symptoms very consistent what appears to be dehydration and altered mental status likely secondary to infection. Patient has a chronic history of colitis. We'll do labwork and imaging. Patient was given IV fluids. Labs and imaging showed what appears to be sepsis with infection possible C. difficile. Patient did have a recent admission in October. Patient was recently put on prednisone. Case was discussed in my attending who agrees with admission. Patient admitted to help us. She was initially started on Zosyn secondary to elevated levels account as well as lactic acid and after CT imaging was obtained flagyl was added for possible c. diff. [facility] Dr Moreno agrees to admission. This was discussed with family and patient who agreed to admission. Sepsis Criteria SIRS Criteria (2 or more): WBC > 22304, < 4000 or > 10% bands Severe Sepsis (+one): Lactate >2 Diagnosis Primary Impression: Pancolitis Additional Impressions: Diarrhea Qualified Code: A09 - Diarrhea of presumed infectious origin Altered mental status Qualified Code: R41.82 - Altered mental status, unspecified altered mental status type Admitting Information Admitting Physician Requests: Admit Tito Cespedes Jan 04, 2017 15:01
[2017-01-04 15:02] LABS: HEMO FLAGS AUTO DIFF
[2017-01-04 15:07] LABS: APTT (PATIENT) 28.9 SEC (24.3-30.1); INTERNATIONAL NORMALIZED RATIO 1.1 RATIO; PROTHROMBIN TIME - PATIENT 11.7 SEC (9.8-11.6)
[2017-01-04 15:26] LABS: ALKALINE PHOSPHATASE 96 U/L (45-117); TOTAL BILIRUBIN ADULT 0.6 MG/DL (0.2-1.0)
[2017-01-04 15:43] LABS: ALT (GPT) 43 U/L (10-53); ANION GAP 10 MEQ/L (5-15); AST (GOT) 27 U/L (15-37); BICARBONATE 24.6 MEQ/L (21.0-32.0); BLOOD UREA NITROGEN 15 MG/DL (7-18); CHLORIDE 99 MEQ/L (98-107); GLOMERULAR FILTRATION RATE 57 ML/MIN (>89); SODIUM (NA) 134 MEQ/L (136-145)
[2017-01-04 15:44] LABS: POTASSIUM 4.2 MEQ/L (3.5-5.1)
[2017-01-04] MEDS ORDERED: PIPERACIL-TAZO 2.25 GM PREMIX 50 ML IV ONE (15:45)
[2017-01-04 15:52] LABS: BANDS 6 % (0-6); BASOPHILS 1 % (0-2); EOSINOPHILS 1 % (0-4); NEUTROPHIL # MANUAL DIFF 18.7 TH/MM3 (1.8-7.7); POLYS (SEG NEUTROPHILS) 75 % (16-70); WBC DIFF SAMPLE 100
[2017-01-04 15:55] LABS: PLATELET ESTIMATE SMEAR NORMAL (NORMAL); PLATELET MORPHOLOGY NORMAL (NORMAL); SCAN/DIFF FINAL DIFF MANUAL; TARGET CELLS 1+ (NORMAL)
--- NOTE | 2017-01-04 16:44 | RADRPT ---
EXAM DATE/TIME: 01/04/2017 16:12 [facility] COMPARISON: No previous studies available for comparison. INDICATIONS : Diffuse abdominal pain with diarrhea and nausea. ORAL CONTRAST: No oral contrast ingested. RADIATION DOSE: 9.96 CTDIvol (mGy) MEDICAL HISTORY : Dementia. Hypertension. Colitis SURGICAL HISTORY : Appendectomy. Hysterectomy. ENCOUNTER: Initial ACUITY: 4 - 6 days PAIN SCALE: 4/10 LOCATION: Diffuse abdomen/pelvis TECHNIQUE: Volumetric scanning of the abdomen and pelvis was performed. Using automated exposure control and ad justment of the mA and/or kV according to patient size, radiation dose was kept as low as reasonably achievable to obtain optimal diagnostic quality images. FINDINGS: There is wall thickening and inflammatory changes of the colon, especially the right side. There is s evere sigmoid colon diverticulosis but does not seem to be particularly more involved than the rest o f the colon. I don't see an abscess, perforation or obstruction. No acute abnormality seen in the solid organs. There is dense atherosclerotic calcification of the ab dominal aorta and iliac arteries. CONCLUSION: Moderate to severe pancolitis, nonspecific but could be C. difficile. No abscess, perforation or obst ruction. Alberto Rivas MD on January 04, 2017 at 16:38 Board Certified Radiologist. This report was verified electronically.
[2017-01-04] MEDS ORDERED: metroNIDAZOLE 500 MG INJ 100 ML IV ONE (16:45)
[2017-01-04 17:15] LABS: BLOOD, URINE NEG (NEG); COMMENT (UR) CULT NOT INDICATED; CULTURE IF INDICATED CULT NOT INDICATED; GLUCOSE,URINE NEG (NEG); KETONE, URINE NEG (NEG); NITRITE,URINE NEG (NEG); PH, URINE 7.5 (5.0-8.5); URINE COLOR DARK-YELLOW (YELLW/STRAW)
[2017-01-04] MEDS ORDERED: SODIUM CHLORIDE 0.9% FLUSH 5 ML FLUSH FLUSH PRN (17:30)
[2017-01-04] MEDS ORDERED: METOCLOPRAMIDE HCL 10 MG/2 ML VIAL IV PUSH PRN (17:30)
[2017-01-04] MEDS ORDERED: ONDANSETRON HCL 4 MG/2 ML VIAL IVP PRN (17:30)
[2017-01-04] MEDS ORDERED: NALOXONE HCL 0.4 MG/ML AMP IV PRN ×2 (17:30→18:00)
[2017-01-04] MEDS ORDERED: BISACODYL 10 MG SUPP PR PRN (17:30)
[2017-01-04 17:31] VITALS: BP 131/58; PULSE 92; RESP 20; TEMP 99.7; O2SAT 98
--- NOTE | 2017-01-04 17:43 | PD ---
Physical Exam Date Seen by Provider: Jan 04, 2017 Time Seen by Provider: 15:00 Narrative I, Dr. Khan, have reviewed the advance practice practitioner's documentation and am in agreement, met with the patient face to face, made the diagnosis, and the medical decision making was done by me. *My assessment and Findings: Patient seen and evaluated with PA, please see previous. No for further details. Elderly lady here with nausea, diarrhea, increased lethargy. Awake, lethargic, not oriented. Cardiac and pulmonary exam unremarkable. Abdomen soft, no focal tenderness, or guarding or rebound, mildly distended Laboratory Tests Test 01/04/17 01/04/17 14:50 16:55 White Blood Count 23.1 TH/MM3 (4.0-11.0) Red Blood Count 3.44 MIL/MM3 (4.00-5.30) Hemoglobin 11.0 GM/DL (11.6-15.3) Hematocrit 32.9 % (35.0-46.0) Neutrophils % (Manual) 75 % (16-70) Neutrophils # (Manual) 18.7 TH/MM3 (1.8-7.7) Target Cells 1+ (NORMAL) Prothrombin Time 11.7 SEC (9.8-11.6) Sodium Level 134 MEQ/L (136-145) Estimat Glomerular Filtration 57 ML/MIN (>89) Rate Lactic Acid Level 2.1 mmol/L (0.4-2.0) Calcium Level 8.1 MG/DL (8.5-10.1) Total Protein 5.8 GM/DL (6.4-8.2) Albumin 2.2 GM/DL (3.4-5.0) Urine Color DARK-YELLOW (YELLW/STRAW) Urine Protein 30 mg/dL (NEG-TRACE) Last 24 hours Impressions Abdomen/Pelvis CT 01/04/17 1429 Signed Impressions: Service Date/Time: Wednesday, January 04, 2017 16:12 - CONCLUSION: Moderate to severe pancolitis, nonspecific but could be C. difficile. No abscess, perforation or obstruction. Alberto Rivas MD Her initial lab work shows leukocytosis and lactate elevation. Blood cultures were sent and IV antibiotics were initiated as precaution. CAT scan shows questionable pancolitis and possibility of C. difficile diarrhea. Flagyl was also given in the ER. At this point, my plan would be to admit the patient for further treatment. Case is discussed with hospitalist service for admission. Data Data Last Documented VS Vital Signs Date Time Temp Pulse Resp B/P Pulse Ox O2 Delivery O2 Flow Rate FiO2 01/04/17 13:55 99.4 88 15 109/56 96 Orders Complete Blood Count With Diff (01/04/17 14:22) Comprehensive Metabolic Panel (01/04/17 14:22) Lipase (01/04/17 14:22) Lactic Acid (01/04/17:22) Prothrombin Time / Inr (Pt) (01/04/17:22) Act Partial Throm Time (Ptt) (01/04/17:) Urinalysis - C+S If Indicated (01/04/17:) Iv Access Insert/Monitor (01/04/17:22) Ecg Monitoring (01/04/17:22) Oximetry (01/04/17:22) Sodium Chlor 0.9% 1000 Ml Inj (Ns 1000 M (01/04/17 14:22) C Diff Toxin Pcr (01/04/17 14:22) Blood Culture (01/04/17 15:22) Cath For Specimen (01/04/17 15:39) Cath For Specimen (01/04/17 15:42) Piperacil-Tazo 2.25 Gm Premix (Zosyn 2.2 (01/04/17 15:45) Ct Abd/Pel W/O Iv Contrast (01/04/17 14:29) Metronidazole 500 Mg Inj (Flagyl 500 Mg (01/04/17 16:45) Admit Order (Ed Use Only) (01/04/17 17:24) Labs Laboratory Tests Test 01/04/17 01/04/17 14:50 16:55 White Blood Count 23.1 TH/MM3 Red Blood Count 3.44 MIL/MM3 Hemoglobin 11.0 GM/DL Hematocrit 32.9 % Mean Corpuscular Volume 95.9 FL Mean Corpuscular Hemoglobin 32.0 PG Mean Corpuscular Hemoglobin 33.4 % Concent Red Cell Distribution Width 14.1 % Platelet Count 319 TH/MM3 Mean Platelet Volume 8.6 FL Neutrophils (%) (Auto) % Lymphocytes (%) (Auto) % Monocytes (%) (Auto) % Eosinophils (%) (Auto) % Basophils (%) (Auto) % Neutrophils # (Auto) TH/MM3 Lymphocytes # (Auto) TH/MM3 Monocytes # (Auto) TH/MM3 Eosinophils # (Auto) TH/MM3 Basophils # (Auto) TH/MM3 CBC Comment AUTO DIFF Differential Total Cells 100 Counted Neutrophils % (Manual) 75 % Band Neutrophils % 6 % Lymphocytes % 13 % Monocytes % 4 % Eosinophils % 1 % Basophils % 1 % Neutrophils # (Manual) 18.7 TH/MM3 Differential Comment FINAL DIFF MANUAL Platelet Estimate NORMAL Platelet Morphology Comment NORMAL Target Cells 1+ Prothrombin Time 11.7 SEC Prothromb Time International 1.1 RATIO Ratio Activated Partial 28.9 SEC Thromboplast Time Sodium Level 134 MEQ/L Potassium Level 4.2 MEQ/L Chloride Level 99 MEQ/L Carbon Dioxide Level 24.6 MEQ/L Anion Gap 10 MEQ/L Blood Urea Nitrogen 15 MG/DL Creatinine 0.94 MG/DL Estimat Glomerular Filtration 57 ML/MIN Rate Random Glucose 99 MG/DL Lactic Acid Level 2.1 mmol/L Calcium Level 8.1 MG/DL Total Bilirubin 0.6 MG/DL Aspartate Amino Transf 27 U/L (AST/SGOT) Alanine Aminotransferase 43 U/L (ALT/SGPT) Alkaline Phosphatase 96 U/L Total Protein 5.8 GM/DL Albumin 2.2 GM/DL Lipase 81 U/L Urine Color DARK-YELLOW Urine Turbidity CLEAR Urine pH 7.5 Urine Specific [place] 1.017 Urine Protein 30 mg/dL Urine Glucose (UA) NEG mg/dL Urine Ketones NEG mg/dL Urine Occult Blood NEG Urine Nitrite NEG Urine Bilirubin NEG Urine Urobilinogen LESS THAN 2.0 MG/DL Urine Leukocyte Esterase NEG Urine WBC 2 /hpf Microscopic Urinalysis Comment CULT NOT INDICATED MDM Medical Record Reviewed: Yes Supervised Visit with GIANCARLO: Yes Diagnosis Primary Impression: Pancolitis Additional Impressions: Diarrhea Qualified Code: A09 - Diarrhea of presumed infectious origin Altered mental status Qualified Code: R41.82 - Altered mental status, unspecified altered mental status type Admitting Information Admitting Physician Requests: it Devonte Khan MD Jan 04, 2017 17:43
[2017-01-04] MEDS ORDERED: ACETAMINOPHEN 325 MG TAB PO PRN (18:00)
[2017-01-04] MEDS ORDERED: MORPHINE SULFATE 4 MG/ML INJ IV PRN (18:00)
[2017-01-04] MEDS ORDERED: ACETAMINOPHEN/HYDROcodone 325 MG/5 MG TAB PO PRN (18:00)
--- NOTE | 2017-01-04 18:02 | HHI.HP ---
[facility] Wendy Conroy MD Admission Diagnosis acute pancycolitis, AMS Diagnoses: Chief Complaint: Abdominal pain Travel History International Travel<30 Days: No Contact w/Intl Traveler <30 Da: No Traveled to Known Affected Are: No History of Present Illness 86-year-old female with a past mental history of dementia, colitis, HTN, GERD, HLD who presents with abdominal pain. The patient has been having lower abdominal cramping since Saturday. She has been having associated diarrhea, at least 3 loose stools daily. She reports decreased appetite and nausea, no vomiting. She reports feeling colder than normal and was febrile in the ED. Denies any specific chills. She does follow with Dr. Dina Roque with colorectal surgery for colitis. The patient has been on prednisone for the past 2 weeks for treatment of the colitis, unclear on prednisone dose. She was in the hospital with similar complaints in October and had a rehabilitation stay after that. 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 She does not take any medications at home for pain. She lives at home with her daughter and is undergoing physical therapy at home. She was taken off of her antidepressants by her PCP. Review of Systems Except as stated in HPI: all other systems reviewed are Neg Past Family Social History Past Medical History Dementia Chronic colitis Hypertension GERD Hyperlipidemia Carotid artery disease Past Surgical History Appendectomy Cholecystectomy Hysterectomy Left arm ORIF EGD and colonoscopy ORIF left femur Reported Medications Aricept (Donepezil) 5 Mg Tab 5 Mg PO HS Ranitidine (Ranitidine HCl) 150 Mg Cap 150 Mg PO BID Carvedilol 6.25 Mg Tab 6.25 Mg PO BID [facility] Anti-Diarrheal (Loperamide HCl) 2 Mg Cap 2 Mg PO BID Atorvastatin (Atorvastatin Calcium) 20 Mg Tab 20 Mg PO HS Sulfasalazine 500 Mg Tab 500 Mg PO BID Potassium Chloride ER (Potassium Chloride) 20 Meq Tab 10 Meq PO DAILY Aspirin 81 Mg Tabdr 81 Mg PO DAILY Allergies: Coded Allergies: Ativan (Verified Allergy, Severe, Lethargy, 12/14/16) PER DAUGHTER PT WENT UNCONSCIOUS. Active Ordered Medications Current Medications Medications (Trade) Dose Ordered Sig/Quentin Route Start Time Stop Time Status Last Admin (Ecotrin Ec) 81 mg DAILY PO 01/05/17 09:00 (Coreg) 6.25 mg BID PO 01/04/17 21:00 (Aricept) 5 mg HS PO 01/04/17 21:00 Sulfasalazine 500 mg 500 mg BID PO 01/04/17 21:00 (NS 1000 ml Inj) 1,000 ml @ 100 mls/hr Q10H IV 01/04/17 18:00 (NS Flush) 2 ml UNSCH PRN FLUSH 01/04/17 17:30 (NS Flush) 2 ml BID FLUSH 01/04/17 21:00 (Tylenol) 650 mg Q4H PRN PO 01/04/17 17:30 (Zofran Inj) 4 mg Q6H PRN IVP 01/04/17 17:30 (Reglan Inj) 5 mg Q6H PRN IV PUSH 01/04/17 17:30 (Dulcolax Supp) 10 mg DAILY PRN MT 01/04/17 17:30 (Lovenox Inj) 40 mg Q24H SQ 01/04/17 18:00 Naloxone HCl 0.4 mg 0.4 mg UNSCH PRN IV 01/04/17 17:30 Piperacillin Sod/ Tazobactam Sod 50 ml @ 100 mls/hr Q6H IV 01/04/17 23:00 (Flagyl 500 Mg Inj) 100 ml @ 100 mls/hr Q8H IV 01/05/17 01:00 (Tylenol) 650 mg Q6H PRN PO 01/04/17 18:00 UNV (Logan 5-325 Mg) 1 tab Q4H PRN PO 01/04/17 18:00 UNV (Morphine Inj) 2 mg Q3H PRN IV 01/04/17 18:00 UNV (Narcan Inj) 0.4 mg UNSCH PRN IV 01/04/17 18:00 UNV Family History Father had stroke at a young age Mother of cancer, they believe lung Social History History of daily alcohol use, no further alcohol use due to colitis Former tobacco use, quit 3 or 4 years ago Lives at home with her daughter Physical Exam Vital Signs Vital Signs Date Time Temp Pulse Resp B/P Pulse Ox O2 Delivery O2 Flow Rate FiO2 01/04/17 17:31 99.7 92 20 131/58 98 Room Air 01/04/17 13:55 99.4 88 15 109/56 96 Physical Exam GENERAL: Well-developed well-nourished. In no acute distress. Pleasantly demented. Hard of hearing. Under multiple layers of blankets. SKIN: Warm and dry. No lesions noted. HEENT: Normocephalic. Pupils equal and round. Mucous membranes pink and moist. CARDIOVASCULAR: Regular rate and rhythm. No murmur appreciated. RESPIRATORY: No accessory muscle use. Clear to auscultation. Breath sounds equal bilaterally. GASTROINTESTINAL: Abdomen soft, generalized TTP worse in the lower abdomen, nondistended. Bowel sounds x4. MUSCULOSKELETAL: No obvious deformities. No clubbing or cyanosis. No edema. NEUROLOGICAL: Awake and alert. No focal neurological deficits. Moves upper and lower extremities spontaneously. Normal speech. PSYCHIATRIC: Appropriate mood and affect; insight and judgment normal. Laboratory Laboratory Tests Test 01/04/17 01/04/17 14:50 16:55 White Blood Count 23.1 Red Blood Count 3.44 Hemoglobin 11.0 Hematocrit 32.9 Mean Corpuscular Volume 95.9 Mean Corpuscular Hemoglobin 32.0 Mean Corpuscular Hemoglobin 33.4 Concent Red Cell Distribution Width 14.1 Platelet Count 319 Mean Platelet Volume 8.6 Neutrophils (%) (Auto) Lymphocytes (%) (Auto) Monocytes (%) (Auto) Eosinophils (%) (Auto) Basophils (%) (Auto) Neutrophils # (Auto) Lymphocytes # (Auto) Monocytes # (Auto) Eosinophils # (Auto) Basophils # (Auto) CBC Comment AUTO DIFF Differential Total Cells 100 Counted Neutrophils % (Manual) 75 Band Neutrophils % 6 Lymphocytes % 13 Monocytes % 4 Eosinophils % 1 Basophils % 1 Neutrophils # (Manual) 18.7 Differential Comment FINAL DIFF MANUAL Platelet Estimate NORMAL Platelet Morphology Comment NORMAL Target Cells 1+ Prothrombin Time 11.7 Prothromb Time International 1.1 Ratio Activated Partial 28.9 Thromboplast Time Sodium Level 134 Potassium Level 4.2 Chloride Level 99 Carbon Dioxide Level 24.6 Anion Gap 10 Blood Urea Nitrogen 15 Creatinine 0.94 Estimat Glomerular Filtration 57 Rate Random Glucose 99 Lactic Acid Level 2.1 Calcium Level 8.1 Total Bilirubin 0.6 Aspartate Amino Transf 27 (AST/SGOT) Alanine Aminotransferase 43 (ALT/SGPT) Alkaline Phosphatase 96 Total Protein 5.8 Albumin 2.2 Lipase 81 Urine Color DARK-YELLOW Urine Turbidity CLEAR Urine pH 7.5 Urine Specific [place] 1.017 Urine Protein 30 Urine Glucose (UA) NEG Urine Ketones NEG Urine Occult Blood NEG Urine Nitrite NEG Urine Bilirubin NEG Urine Urobilinogen LESS THAN 2.0 Urine Leukocyte Esterase NEG Urine WBC 2 Microscopic Urinalysis Comment CULT NOT INDICATED Date/Time Procedure Status Source Growth 01/04/17 16:50 Aerobic Blood Culture Received Blood Peripheral Pending 01/04/17 16:50 Anaerobic Blood Culture Received Blood Peripheral Pending Result Diagram: 01/04/17 1450 01/04/17 1450 Imaging Last Impressions Abdomen/Pelvis CT 01/04/17 1429 Signed Impressions: Service Date/Time: Wednesday, January 04, 2017 16:12 - CONCLUSION: Moderate to severe pancolitis, nonspecific but could be C. difficile. No abscess, perforation or obstruction. Alberto Rivas MD Assessment and Plan Assessment and Plan 86-year-old female with a past mental history of dementia, colitis, HTN, GERD, HLD who presents with abdominal pain Acute on chronic pain colitis: Previous colonoscopy pathology revealed lymphocytic colitis. Patient has been undergoing outpatient treatment with prednisone and sulfasalazine with her colorectal surgeon, Dr. Roque. Now she presents with decreased intake, abdominal pain, and diarrhea. Tmax 99.7. WBC 23K, secondary to steroids vs infection. Continue IV antibiotics with Flagyl and Zosyn. Consult gastroenterology. Continue on prednisone and sulfasalazine for now. Check stool studies including C. difficile. IVF. Pain control with oral and intravenous narcotics as needed. Other chronic medical conditions including dementia, HTN, carotid artery disease , HLD, deconditioning: Stable at this time. Continue home Aricept, carvedilol, aspirin. Continue PT. DVT prophylaxis: Lovenox Code Status Full code Discussed Condition With Patient with daughter at bedside, Dr. Moreno Attending Statement Patient seen in Emergency room in the presence of her Daughter Miss Aj appreciated, agree with management, consulted GI specialist. Edy Loza Jan 04, 2017 18:02 Wally Pretty MD Jan 04, 2017 19:07
[2017-01-04] MEDS: SODIUM CHLOR 0.9% 1000 ML INJ 1,000 ML IV SCH (18:34)
[2017-01-04] MEDS: ENOXAPARIN SODIUM 40 MG/0.4 ML SYRINGE SQ SCH (18:37)
[2017-01-04 19:50] VITALS: BP 100/55; PULSE 65; RESP 18; TEMP 98.1; O2SAT 100
[2017-01-04] MEDS ORDERED: MIRTAZAPINE 15 MG TAB PO SCH (21:00)
[2017-01-04] MEDS: SODIUM CHLORIDE 0.9% FLUSH 5 ML FLUSH FLUSH SCH (21:00)
[2017-01-04 22:04] VITALS: BP 132/59; PULSE 85; RESP 22; TEMP 100.3; O2SAT 97
[2017-01-04] MEDS: DONEPEZIL HCL 5 MG TAB PO SCH (23:27)
[2017-01-04] MEDS: ACETAMINOPHEN 325 MG TAB PO PRN (23:27)
[2017-01-04] MEDS: CARVEDILOL 6.25 MG TAB PO SCH (23:27)
[2017-01-04] MEDS: PIPERACIL-TAZO 3.375 GM PREMIX 50 ML IV SCH (23:27)
[2017-01-04] MEDS: sulfaSALAzine 500 MG TAB PO SCH (23:28)
[2017-01-04] MEDS: predniSONE 20 MG TAB PO SCH (23:28)
--- NOTE | 2017-01-04 23:47 | HHI.PR ---
Addendum to Inpatient Note Addendum Reason: Additional Documentation Additional Information I placed a call to Madai Cordon the patient's Durable Power of Hoe Runner for Healthcare (document in paper medical record dated November 27, 2013) angela to verify the patient's wishes for DNR/No Code status. She signed a community DNR with the patient's RN earlier this evening and I was asked by the RN to assist with an order to change the patient's code status. She has verified her signature on the community DNR and states that DNR code status is consistent with Ms. Begum's end-of-life wishes. I answered all questions to her satisfaction. Living Will and POA for healthcare documents have been reviewed. I have asked the munitions worker to fax these documents to medical records so that they may become a permanent part of the patient's electronic medical record. I have personally interviewed the patient. She has been diagnosed with dementia. She is unable to tell me her medical problems, she is unable to tell me her gastroenterology doctor's name. She does tell me that she sees Dr. Conroy. She is unable to tell me what medical problem prompted her to come to the hospital. She is clearly agitated by her inability to remember any of her medical information. Given this demonstration of cognitive impairment, I feel it is appropriate to obtain code status from her DPOA for healthcare at this time. If her mental status improves, and it may not given her history of dementia, her code status should be readdressed with her. Currently, she does not demonstrate the appropriate insight into her medical problems to be able to weigh the benefits and burdens of treatment or refusal of treatment decisions. I have entered a DNR/No Code order for Ms. Begum. . Gudelia Medina Jan 04, 2017 23:47
[2017-01-05] VITALS (9 sets, daily range): BP systolic 93–131; BP diastolic 43–61; PULSE 61–84; RESP 16–22; TEMP 95.8–101.2; O2SAT 95–98
[2017-01-05] MEDS: metroNIDAZOLE 500 MG INJ 100 ML IV SCH ×2 (01:43→08:11)
[2017-01-05] MEDS: SODIUM CHLOR 0.9% 1000 ML INJ 1,000 ML IV SCH ×3 (03:59→20:54)
[2017-01-05] MEDS: ACETAMINOPHEN 325 MG TAB PO PRN (03:59)
[2017-01-05 05:00] LABS: AUTOMATED NEUTROPHIL # 19.4 TH/MM3 (1.8-7.7); BASOPHIL % 0.1 % (0.0-2.0); EOSINOPHIL # 0.1 TH/MM3 (0-0.4); EOSINOPHIL % 0.6 % (0.0-4.0); HEMATOCRIT 29.2 % (35.0-46.0); HEMO FLAGS DIFF FINAL; LYMPH % 2.5 % (9.0-44.0); LYMPHOCYTE # 0.5 TH/MM3 (1.0-4.8); MEAN CELL VOLUME 95.4 FL (80.0-100.0); MEAN CORPUSCULAR HEMOGLOBIN 31.8 PG (27.0-34.0); MEAN CORPUSCULAR HGB CONC 33.3 % (32.0-36.0); MONO % 5.8 % (0.0-8.0); PLATELET COUNT 269 TH/MM3 (150-450); RED BLOOD COUNT 3.05 MIL/MM3 (4.00-5.30); RED CELL DISTRIBUTION WIDTH 13.8 % (11.6-17.2); WHITE BLOOD COUNT 21.3 TH/MM3 (4.0-11.0)
[2017-01-05 05:17] LABS: INTERNATIONAL NORMALIZED RATIO 1.1 RATIO; PROTHROMBIN TIME - PATIENT 12.7 SEC (9.8-11.6)
[2017-01-05] MEDS: PIPERACIL-TAZO 3.375 GM PREMIX 50 ML IV SCH ×2 (05:23→08:11)
[2017-01-05 06:06] LABS: BICARBONATE 21.6 MEQ/L (21.0-32.0); INDIRECT BILIRUBIN 0.5 MG/DL (0.0-0.8); POTASSIUM 3.4 MEQ/L (3.5-5.1); TOTAL BILIRUBIN ADULT 0.9 MG/DL (0.2-1.0)
[2017-01-05] MEDS: predniSONE 20 MG TAB PO SCH (08:10)
[2017-01-05] MEDS: sulfaSALAzine 500 MG TAB PO SCH ×2 (08:10→20:53)
[2017-01-05] MEDS: CARVEDILOL 6.25 MG TAB PO SCH ×3 (08:11→20:53)
[2017-01-05] MEDS: ASPIRIN EC 81 MG TABEC PO SCH (08:11)
[2017-01-05] MEDS: SODIUM CHLORIDE 0.9% FLUSH 5 ML FLUSH FLUSH SCH ×2 (08:11→20:53)
--- NOTE | 2017-01-05 09:22 | HHI.PR ---
Subjective Remarks This is a pleasant 86 y/o Female with Dementia, Colitis, Hypertension, GERD, Hyperlipidemia who came to ER with abdominal pain, associated Diarrhea, 3 loose stools daily, fever, she is been followed by Colorectal automation specialist Doctor Dina Roque, use Prednisone, status post EGD an Colonoscopy, patient discussed with GI specialist Doctor Junior Walton he wants her to be followed by her Primary Colorectal surgeon order placed by Doctor nAton, she is stable No nausea, vomit or diarrhea, discussed with nurse Miss Angie dempsey. Improving Abdominal pain. Objective Vital Signs Date Time Temp Pulse Resp B/P Pulse Ox O2 Delivery O2 Flow Rate FiO2 01/05/17 08:00 95.8 72 16 94/43 95 01/05/17 06:06 97.6 01/05/17 04:00 100.5 74 22 95/59 96 01/05/17 00:00 101.2 84 22 131/59 97 01/04/17 22:04 100.3 85 22 132/59 97 01/04/17 21:48 01/04/17 19:50 98.1 65 18 100/55 100 Room Air 01/04/17 17:31 99.7 92 20 131/58 98 Room Air 01/04/17 13:55 99.4 88 15 109/56 96 I/O 01/04/17 01/04/17 01/04/17 01/05/17 01/05/17 01/05/17 07:00 15:00 23:00 07:00 15:00 23:00 Intake Total 308 ml 899 ml Balance 308 ml 899 ml Intake Oral 120 ml 240 ml IV Total 188 ml 659 ml # Voids 1 4 # Bowel Movements 1 4 Result Diagram: 01/05/17 0416 01/05/17 0416 Imaging Last Impressions Abdomen/Pelvis CT 01/04/17 1429 Signed Impressions: Service Date/Time: Wednesday, January 04, 2017 16:12 - CONCLUSION: Moderate to severe pancolitis, nonspecific but could be C. difficile. No abscess, perforation or obstruction. Alberto Rivas MD Procedures No procedures performed Other Results Laboratory Tests Test 01/04/17 01/04/17 01/05/17 14:50 16:55 04:16 Differential Total Cells 100 Counted Neutrophils % (Manual) 75 % Band Neutrophils % 6 % Lymphocytes % 13 % Monocytes % 4 % Eosinophils % 1 % Basophils % 1 % Neutrophils # (Manual) 18.7 TH/MM3 Platelet Estimate NORMAL Platelet Morphology Comment NORMAL Target Cells 1+ Activated Partial 28.9 SEC Thromboplast Time Lactic Acid Level 2.1 mmol/L Urine Color DARK-YELLOW Urine Turbidity CLEAR Urine pH 7.5 Urine Specific [place] 1.017 Urine Protein 30 mg/dL Urine Glucose (UA) NEG mg/dL Urine Ketones NEG mg/dL Urine Occult Blood NEG Urine Nitrite NEG Urine Bilirubin NEG Urine Urobilinogen LESS THAN 2.0 MG/DL Urine Leukocyte Esterase NEG Urine WBC 2 /hpf Microscopic Urinalysis Comment CULT NOT INDICATED White Blood Count 21.3 TH/MM3 Red Blood Count 3.05 MIL/MM3 Hemoglobin 9.7 GM/DL Hematocrit 29.2 % Mean Corpuscular Volume 95.4 FL Mean Corpuscular Hemoglobin 31.8 PG Mean Corpuscular Hemoglobin 33.3 % Concent Red Cell Distribution Width 13.8 % Platelet Count 269 TH/MM3 Mean Platelet Volume 8.4 FL Neutrophils (%) (Auto) 91.0 % Lymphocytes (%) (Auto) 2.5 % Monocytes (%) (Auto) 5.8 % Eosinophils (%) (Auto) 0.6 % Basophils (%) (Auto) 0.1 % Neutrophils # (Auto) 19.4 TH/MM3 Lymphocytes # (Auto) 0.5 TH/MM3 Monocytes # (Auto) 1.2 TH/MM3 Eosinophils # (Auto) 0.1 TH/MM3 Basophils # (Auto) 0.0 TH/MM3 CBC Comment DIFF FINAL Differential Comment Prothrombin Time 12.7 SEC Prothromb Time International 1.1 RATIO Ratio Sodium Level 137 MEQ/L Potassium Level 3.4 MEQ/L Chloride Level 103 MEQ/L Carbon Dioxide Level 21.6 MEQ/L Anion Gap 12 MEQ/L Blood Urea Nitrogen 11 MG/DL Creatinine 0.87 MG/DL Estimat Glomerular Filtration 62 ML/MIN Rate Random Glucose 92 MG/DL Calcium Level 7.7 MG/DL Total Bilirubin 0.9 MG/DL Direct Bilirubin 0.4 MG/DL Indirect Bilirubin 0.5 MG/DL Aspartate Amino Transf 12 U/L (AST/SGOT) Alanine Aminotransferase 29 U/L (ALT/SGPT) Alkaline Phosphatase 84 U/L Total Protein 4.9 GM/DL Albumin 1.8 GM/DL Lipase 55 U/L Objective Remarks GENERAL: No acute distress. SKIN: Warm and dry. No lesions noted. HEENT: Normocephalic. Pupils equal and round. Mucous membranes pink and moist. CARDIOVASCULAR: Regular rate and rhythm. No murmur appreciated. RESPIRATORY: No accessory muscle use. Clear to auscultation. Breath sounds equal bilaterally. GASTROINTESTINAL: Soft mild tenderness generalized, positive bowel sounds and no rebound tenderness. MUSCULOSKELETAL: No obvious deformities. No clubbing or cyanosis. No edema. NEUROLOGICAL: Awake and alert. No focal neurological deficits. Moves upper and lower extremities spontaneously. Normal speech. PSYCHIATRIC: Appropriate mood and affect; insight and judgment normal. Medications and IVs Current Medications Medications (Trade) Dose Ordered Sig/Quentin Route Start Time Stop Time Status Last Admin (Ecotrin Ec) 81 mg DAILY PO 01/05/17 09:00 01/05/17 08:11 (Coreg) 6.25 mg BID PO 01/04/17 21:00 01/04/17 23:27 (Aricept) 5 mg HS PO 01/04/17 21:00 01/04/17 23:27 Sulfasalazine 500 mg 500 mg BID PO 01/04/17 21:00 01/05/17 08:10 (NS 1000 ml Inj) 1,000 ml @ 100 mls/hr Q10H IV 01/04/17 18:00 01/05/17 03:59 (NS Flush) 2 ml UNSCH PRN FLUSH 01/04/17 17:30 (NS Flush) 2 ml BID FLUSH 01/04/17 21:00 (Tylenol) 650 mg Q4H PRN PO 01/04/17 17:30 01/05/17 03:59 (Zofran Inj) 4 mg Q6H PRN IVP 01/04/17 17:30 01/04/17 18:41 (Reglan Inj) 5 mg Q6H PRN IV PUSH 01/04/17 17:30 (Dulcolax Supp) 10 mg DAILY PRN [place] 01/04/17 17:30 Enoxaparin Sodium 40 mg 40 mg Q24H SQ 01/04/17 18:00 01/04/17 18:37 Piperacillin Sod/ Tazobactam Sod 50 ml @ 100 mls/hr Q6H IV 01/04/17 23:00 01/05/17 08:11 (Flagyl 500 Mg Inj) 100 ml @ 100 mls/hr Q8H IV 01/05/17 01:00 01/05/17 08:11 (Tylenol) 650 mg Q6H PRN PO 01/04/17 18:00 (Opal 5-325 Mg) 1 tab Q4H PRN PO 01/04/17 18:00 (Morphine Inj) 2 mg Q3H PRN IV 01/04/17 18:00 01/04/17 18:42 (Narcan Inj) 0.4 mg UNSCH PRN IV 01/04/17 18:00 (Deltasone) 20 mg BID PO 01/04/17 21:00 01/05/17 08:10 A/P Problem List: (1) Pancolitis ICD Code: K51.00 (2) Diarrhea ICD Code: R19.7 Assessment and Plan 1. Acute on chronic Colitis, receiving antibiotics, following blood cultures Improving condition continue Zosyn and Metronidazole. she has already a Colonoscopy showing Lymphocytic Colitis, she is been on Prednisone and Sulfasalazine, discussed with Doctor Anton asked for her primary Colorectal surgeon. 2. Diarrhea improving 3. Hypertension controlled 4. Hyperlipidemia at this time on hold home medicines 5. GERD continue GI protection 6. Dementia continue Home medicines today oriented in Place and Person. 7. Leukocytosis Improving. 8. Electrolyte derangement replaced. Follow CBC, Potassium, Phosphorus and magnesium in am tomorrow DVT prophylaxis: Lovenox Code Status Full code Discharge Planning Awaiting final by GI specialist. Problem Qualifiers (1) Diarrhea: Qualified Code: A09 - Diarrhea of presumed infectious origin Wally Pretty MD Jan 05, 2017 09:22
--- NOTE | 2017-01-05 11:40 | HHI.PR ---
Subjective . Consult dictated. See orders. Alberto Escobar MD Jan 05, 2017 11:40
[2017-01-05] MEDS ORDERED: POTASSIUM CHLORIDE 25 MEQ EFFERVESCENT TAB PO ONE (11:45)
[2017-01-05] MEDS: metroNIDAZOLE 500 MG TAB PO SCH ×2 (12:14→20:53)
[2017-01-05] MEDS: VANCOMYCIN 500 MG VIAL (FOR ORAL USE ONLY) PO SCH ×3 (12:29→20:54)
--- NOTE | 2017-01-05 13:56 | MB ---
cc: GA MORRISON M.D., TRAVIS, PA TOLLAND, JOHN T. M.D. SANCHEZ, GUILLERMO, MD DATE OF CONSULTATION: 01/05/2017. REASON FOR CONSULTATION: Diarrhea. HISTORY OF PRESENT ILLNESS: This patient is known to Dr. Dina Roque and apparently has been recently treated for diarrhea and lymphocytic colitis with Azulfidine and Prednisone 10 milligrams a day. The patient apparently had more diarrhea and the patient's family brought her to the emergency room yesterday. At that time, she had a 23,000 white count, which may be related to the prednisone; however, a CT scan was also done showing thickening of the ascending colon, possibly consistent with pseudomembranous colitis. The patient was in the hospital in mid-October with similar diarrheal symptoms and was seen by Dr. Arevalo and Dr. Cho and Dr. Cho did an upper GI endoscopy on November 05 showing a Zenker's diverticulum. 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 The patient is somewhat demented and really unable to give me any history. She denies any abdominal pain, no nausea, no vomiting. She says that she is having continuous diarrhea. PAST MEDICAL HISTORY, FAMILY HISTORY, SOCIAL HISTORY, REVIEW OF SYSTEMS: As above. PHYSICAL EXAMINATION: GENERAL: Well-developed thin female in no acute distress drinking a cup of tea. SKIN: Skin is warm and dry. HEAD, EYES, EARS, NOSE, THROAT: Extraocular muscles intact. NECK: The neck is supple. ABDOMEN: Abdomen is flat, soft, nontender. No masses. RECTAL: Exam was not done. EXTREMITIES: Range of motion within normal limits. NEUROLOGIC: Grossly intact. IMPRESSION: 1. Thickened colon on CT scan with diarrhea. This most likely represents pseudomembranous colitis as she was given antibiotics the last time she was in the hospital and she has been on prednisone. PLAN: 1. I would recommend stopping her piperacillin as we do not know what we are treating with this and give her oral vancomycin and oral Flagyl as she is able to take p.o. medications. I would taper her prednisone. 2. I do not think that further endoscopy needs to be done since it was done on November 05 and we will await the C. difficile toxin assays. I really have no other recommendations as this seems to be a nonsurgical condition. MD MARY Hamlin/RUBA /11:09 AM /1:49 PM RYAN
[2017-01-05 15:13] LABS: C. DIFF EPI 027 PRESUMPTIVE POSITIVE (NEGATIVE); C. DIFF TOXIN PCR POSITIVE (NEGATIVE)
[2017-01-05] MEDS: ENOXAPARIN SODIUM 40 MG/0.4 ML SYRINGE SQ SCH (17:05)
[2017-01-05] MEDS: DONEPEZIL HCL 5 MG TAB PO SCH (20:53)
[2017-01-06] VITALS (7 sets, daily range): BP systolic 92–143; BP diastolic 53–67; PULSE 68–80; RESP 16–20; TEMP 95–98.1; O2SAT 95–100
[2017-01-06 06:00] LABS: AUTOMATED NEUTROPHIL # 24.1 TH/MM3 (1.8-7.7); BASOPHIL % 0.1 % (0.0-2.0); HEMO FLAGS DIFF FINAL; MEAN CELL VOLUME 95.6 FL (80.0-100.0); MEAN CORPUSCULAR HEMOGLOBIN 31.6 PG (27.0-34.0); MEAN CORPUSCULAR HGB CONC 33.1 % (32.0-36.0); MONO % 2.9 % (0.0-8.0); PLATELET COUNT 282 TH/MM3 (150-450); RED BLOOD COUNT 3.14 MIL/MM3 (4.00-5.30); RED CELL DISTRIBUTION WIDTH 13.9 % (11.6-17.2); WHITE BLOOD COUNT 25.9 TH/MM3 (4.0-11.0)
[2017-01-06] MEDS: metroNIDAZOLE 500 MG TAB PO SCH ×3 (06:08→21:18)
[2017-01-06 06:14] LABS: MAGNESIUM 1.4 MG/DL (1.5-2.5); POTASSIUM 3.1 MEQ/L (3.5-5.1)
[2017-01-06] MEDS: CARVEDILOL 6.25 MG TAB PO SCH ×2 (08:10→21:00)
[2017-01-06] MEDS: sulfaSALAzine 500 MG TAB PO SCH ×2 (08:10→21:18)
[2017-01-06] MEDS: predniSONE 10 MG TAB PO SCH ×2 (08:10→09:00)
[2017-01-06] MEDS: ASPIRIN EC 81 MG TABEC PO SCH ×2 (08:10→09:00)
[2017-01-06] MEDS: SODIUM CHLORIDE 0.9% FLUSH 5 ML FLUSH FLUSH SCH ×2 (08:11→21:18)
[2017-01-06] MEDS: VANCOMYCIN 500 MG VIAL (FOR ORAL USE ONLY) PO SCH ×5 (09:00→21:18)
[2017-01-06] MEDS: SODIUM CHLOR 0.9% 1000 ML INJ 1,000 ML IV SCH ×2 (09:45→21:19)
--- NOTE | 2017-01-06 10:33 | HHI.PR ---
Subjective Remarks This is a pleasant 86 y/o Female with Dementia, Colitis, Hypertension, GERD, Hyperlipidemia who came to ER with abdominal pain, associated Diarrhea, 3 loose stools daily, fever, she is been followed by Colorectal human service specialist Doctor Dina Roque, use Prednisone, as per Doctor Alberto Escobar the patient had diarrhea, She had EGD and Colonoscopy 11/05/[address] Marquis now with Pseudomembranous colitis Non tenderness, recommended to stop IV antibiotics, that may complicate her C Diff, recommended Flagyl and Vancomycin by mouth, the patient is stable no new complaint. Pleasantly Demented. Objective Vital Signs Date Time Temp Pulse Resp B/P Pulse Ox O2 Delivery O2 Flow Rate FiO2 01/06/17 08:00 95.0 71 16 103/55 96 01/06/17 00:03 98.1 70 19 92/53 95 01/05/17 21:20 21 01/05/17 20:00 97.5 61 20 111/61 97 01/05/17 16:00 97.4 72 16 99/56 98 01/05/17 12:40 94/54 01/05/17 12:00 96.8 73 18 93/44 95 I/O 01/05/17 01/05/17 01/05/17 01/06/17 01/06/17 01/06/17 07:00 15:00 23:00 07:00 15:00 23:00 Intake Total 899 ml 1339 ml 1040 ml 120 ml Output Total 3 ml Balance 899 ml 1336 ml 1040 ml 120 ml Intake Oral 240 ml 600 ml 240 ml 120 ml IV Total 659 ml 739 ml 800 ml Output Urine Total 3 ml # Voids 4 2 3 # Bowel Movements 4 3 2 2 Result Diagram: 01/06/17 0505 01/06/17 0505 Imaging Last Impressions Abdomen/Pelvis CT 01/04/17 1429 Signed Impressions: Service Date/Time: Wednesday, January 04, 2017 16:12 - CONCLUSION: Moderate to severe pancolitis, nonspecific but could be C. difficile. No abscess, perforation or obstruction. Alberto Rivas MD Procedures No procedures performed Other Results Laboratory Tests Test 01/04/17 01/04/17 01/05/17 01/05/17 14:50 16:55 04:16 13:30 Differential Total Cells 100 Counted Neutrophils % (Manual) 75 % Band Neutrophils % 6 % Lymphocytes % 13 % Monocytes % 4 % Eosinophils % 1 % Basophils % 1 % Neutrophils # (Manual) 18.7 TH/MM3 Platelet Estimate NORMAL Platelet Morphology Comment NORMAL Target Cells 1+ Activated Partial 28.9 SEC Thromboplast Time Lactic Acid Level 2.1 mmol/L Urine Color DARK-YELLOW Urine Turbidity CLEAR Urine pH 7.5 Urine Specific [place] 1.017 Urine Protein 30 mg/dL Urine Glucose (UA) NEG mg/dL Urine Ketones NEG mg/dL Urine Occult Blood NEG Urine Nitrite NEG Urine Bilirubin NEG Urine Urobilinogen LESS THAN 2.0 MG/DL Urine Leukocyte Esterase NEG Urine WBC 2 /hpf Microscopic Urinalysis Comment CULT NOT INDICATED Prothrombin Time 12.7 SEC Prothromb Time International 1.1 RATIO Ratio Sodium Level 137 MEQ/L Chloride Level 103 MEQ/L Carbon Dioxide Level 21.6 MEQ/L Anion Gap 12 MEQ/L Blood Urea Nitrogen 11 MG/DL Creatinine 0.87 MG/DL Estimat Glomerular Filtration 62 ML/MIN Rate Random Glucose 92 MG/DL Calcium Level 7.7 MG/DL Total Bilirubin 0.9 MG/DL Direct Bilirubin 0.4 MG/DL Indirect Bilirubin 0.5 MG/DL Aspartate Amino Transf 12 U/L (AST/SGOT) Alanine Aminotransferase 29 U/L (ALT/SGPT) Alkaline Phosphatase 84 U/L Total Protein 4.9 GM/DL Albumin 1.8 GM/DL Lipase 55 U/L Stool C. difficile Toxin (PCR) POSITIVE Stl C. difficile Toxin PRESUMPTIVE Epiderm 027 POSITIVE Test 01/06/17 05:05 White Blood Count 25.9 TH/MM3 Red Blood Count 3.14 MIL/MM3 Hemoglobin 9.9 GM/DL Hematocrit 30.0 % Mean Corpuscular Volume 95.6 FL Mean Corpuscular Hemoglobin 31.6 PG Mean Corpuscular Hemoglobin 33.1 % Concent Red Cell Distribution Width 13.9 % Platelet Count 282 TH/MM3 Mean Platelet Volume 8.4 FL Neutrophils (%) (Auto) 93.0 % Lymphocytes (%) (Auto) 4.0 % Monocytes (%) (Auto) 2.9 % Eosinophils (%) (Auto) 0.0 % Basophils (%) (Auto) 0.1 % Neutrophils # (Auto) 24.1 TH/MM3 Lymphocytes # (Auto) 1.0 TH/MM3 Monocytes # (Auto) 0.7 TH/MM3 Eosinophils # (Auto) 0.0 TH/MM3 Basophils # (Auto) 0.0 TH/MM3 CBC Comment DIFF FINAL Differential Comment Potassium Level 3.1 MEQ/L Magnesium Level 1.4 MG/DL Objective Remarks GENERAL: No acute distress. SKIN: Warm and dry. No lesions noted. HEENT: Normocephalic. Pupils equal and round. Mucous membranes pink and moist. CARDIOVASCULAR: Regular rate and rhythm. No murmur appreciated. RESPIRATORY: No accessory muscle use. Clear to auscultation. Breath sounds equal bilaterally. GASTROINTESTINAL: Soft mild tenderness generalized, positive bowel sounds and no rebound tenderness. MUSCULOSKELETAL: No obvious deformities. No clubbing or cyanosis. No edema. NEUROLOGICAL: Awake and alert. No focal neurological deficits. Moves upper and lower extremities spontaneously. Normal speech. PSYCHIATRIC: Appropriate mood and affect; insight and judgment normal. Medications and IVs Current Medications Medications (Trade) Dose Ordered Sig/Quentin Route Start Time Stop Time Status Last Admin (Ecotrin Ec) 81 mg DAILY PO 01/05/17 09:00 01/05/17 08:11 (Coreg) 6.25 mg BID PO 01/04/17 21:00 01/05/17 20:53 (Aricept) 5 mg HS PO 01/04/17 21:00 01/05/17 20:53 Sulfasalazine 500 mg 500 mg BID PO 01/04/17 21:00 01/06/17 08:10 (NS 1000 ml Inj) 1,000 ml @ 100 mls/hr Q10H IV 01/04/17 18:00 01/06/17 09:45 (NS Flush) 2 ml UNSCH PRN FLUSH 01/04/17 17:30 (NS Flush) 2 ml BID FLUSH 01/04/17 21:00 01/05/17 20:53 (Tylenol) 650 mg Q4H PRN PO 01/04/17 17:30 01/05/17 03:59 (Zofran Inj) 4 mg Q6H PRN IVP 01/04/17 17:30 01/04/17 18:41 (Reglan Inj) 5 mg Q6H PRN IV PUSH 01/04/17 17:30 (Lovenox Inj) 40 mg Q24H SQ 01/04/17 18:00 01/05/17 17:05 (Tylenol) 650 mg Q6H PRN PO 01/04/17 18:00 ([place] 5-325 Mg) 1 tab Q4H PRN PO 01/04/17 18:00 (Morphine Inj) 2 mg Q3H PRN IV 01/04/17 18:00 01/04/17 18:42 (Narcan Inj) 0.4 mg UNSCH PRN IV 01/04/17 18:00 (Deltasone) 10 mg DAILY PO 01/06/17 09:00 (Flagyl) 500 mg Q8HR PO 01/05/17 14:00 01/06/17 06:08 (VANCOMYCIN for oral use only) 250 mg QID PO 01/05/17 13:00 01/19/17 12:59 01/05/17 20:54 A/P Problem List: (1) Pancolitis ICD Code: K51.00 (2) Diarrhea ICD Code: R19.7 Assessment and Plan 1. Acute on chronic Colitis, initially on Zosyn and Metronidazole, her C Diff test was positive as per Doctor Alberto Escobar the patient had diarrhea, She had EGD and Colonoscopy 11/05/[address] Doctor Marquis now with Pseudomembranous colitis Non tenderness, recommended to stop IV antibiotics, that may complicate her C Diff, she has diagnosis of Lyphocytic Colitis she is been on Prednisone and Sulfasalazine medicines were continued on admission 2. Leukocytosis secondary to basal pathology and Steroid use. 3. Diarrhea improving 4. Hyperlipidemia at this time on hold home medicines 5. GERD continue GI protection 6. Dementia continue Home medicines today oriented in Place and Person. 7. Leukocytosis Improving. 8. Electrolyte derangement replaced. 3. Hypertension controlled DVT prophylaxis: Lovenox Code Status Full code Discharge Planning Expected by tomorrow. Problem Qualifiers (1) Diarrhea: Qualified Code: A09 - Diarrhea of presumed infectious origin Wally Pretty MD Jan 06, 2017 10:33
--- NOTE | 2017-01-06 11:16 | HHI.PR ---
Subjective Remarks Pt seen yesterday with diarrhea. Known to Dr Cho and Dr Roque. She had EGD and Colonoscopy 11/05/[address] Cho. Now in with Pseudomembranous colitis. No pain or other symptoms other than diarrhea. Objective Vital Signs Date Time Temp Pulse Resp B/P Pulse Ox O2 Delivery O2 Flow Rate FiO2 01/06/17 08:22 97 21 01/06/17 08:00 95.0 71 16 103/55 96 01/06/17 00:03 98.1 70 19 92/53 95 01/05/17 21:20 21 01/05/17 20:00 97.5 61 20 111/61 97 01/05/17 16:00 97.4 72 16 99/56 98 01/05/17 12:40 94/54 01/05/17 12:00 96.8 73 18 93/44 95 I/O 01/05/17 01/05/17 01/05/17 01/06/17 01/06/17 01/06/17 07:00 15:00 23:00 07:00 15:00 23:00 Intake Total 899 ml 1339 ml 1040 ml 120 ml Output Total 3 ml Balance 899 ml 1336 ml 1040 ml 120 ml Intake Oral 240 ml 600 ml 240 ml 120 ml IV Total 659 ml 739 ml 800 ml Output Urine Total 3 ml # Voids 4 2 3 # Bowel Movements 4 3 2 2 Result Diagram: 01/06/17 0505 01/06/17 0505 Procedures No procedures performed Objective Remarks VS-S Abd: Flat,soft,non tender Assessment and Plan Assessment and Plan Pseudomembranous colitis. Plan Will sign off as there is no Colorectal surgery issue. Yesterday I took the liberty of Stopping all IV antibiotics which will contribute to worsening her C. Diff. Also I started PO Flagyl and Vancomycin. Recommend keeping her hydrated and in hospital with any other indicated medical therapy as needed. Will sign off. Alberto Escobar MD Jan 06, 2017 11:16
[2017-01-06] MEDS: ENOXAPARIN SODIUM 40 MG/0.4 ML SYRINGE SQ SCH (17:05)
[2017-01-06] MEDS: DONEPEZIL HCL 5 MG TAB PO SCH (21:17)
[2017-01-07] MEDS: metroNIDAZOLE 500 MG TAB PO SCH ×3 (05:26→22:04)
[2017-01-07] MEDS: SODIUM CHLOR 0.9% 1000 ML INJ 1,000 ML IV SCH ×2 (05:26→16:50)
[2017-01-07 08:00] VITALS: BP 143/78; PULSE 75; RESP 16; TEMP 95.7; O2SAT 96
[2017-01-07] MEDS: SODIUM CHLORIDE 0.9% FLUSH 5 ML FLUSH FLUSH SCH ×2 (09:00→22:05)
--- NOTE | 2017-01-07 09:20 | HHI.PR ---
Subjective Remarks This is a pleasant 86 y/o Female with Dementia, Colitis, Hypertension, GERD, Hyperlipidemia who came to ER with abdominal pain, associated Diarrhea, 3 loose stools daily, fever, she is been followed by Colorectal adult health clinical nurse specialist Doctor Dina Roque, use Prednisone, as per Doctor Alberto Escobar the patient had diarrhea, She had EGD and Colonoscopy 11/05/16 with Doctor Marquis now with Pseudomembranous colitis Non tenderness, recommended to stop IV antibiotics, that may complicate her C Diff, recommended Flagyl and Vancomycin by mouth, the patient is stable no new complaint. Pleasantly Demented. Seen in the presence of nurse Miss Parker as per Physical Therapy she is able to come back home with [facility] for PT, No nausea, vomit and improving diarrhea. but has Severe Electrolyte derangement Objective Vital Signs Date Time Temp Pulse Resp B/P Pulse Ox O2 Delivery O2 Flow Rate FiO2 01/07/17 08:00 95.7 75 16 143/78 96 01/06/17 23:32 96.0 69 20 142/67 97 01/06/17 20:00 96.8 75 20 137/65 96 01/06/17 16:00 96.9 68 16 143/66 96 01/06/17 12:00 97.8 80 20 129/60 100 I/O 01/06/17 01/06/17 01/06/17 01/07/17 01/07/17 01/07/17 07:00 15:00 23:00 07:00 15:00 23:00 Intake Total 120 ml 640 ml 920 ml 120 ml Balance 120 ml 640 ml 920 ml 120 ml Intake Oral 120 ml 240 ml 120 ml 120 ml IV Total 400 ml 800 ml # Voids 3 2 1 3 # Bowel Movements 2 2 1 3 Result Diagram: 01/06/17 0505 01/06/17 0505 Imaging Last Impressions Abdomen/Pelvis CT 01/04/17 1429 Signed Impressions: Service Date/Time: Wednesday, January 04, 2017 16:12 - CONCLUSION: Moderate to severe pancolitis, nonspecific but could be C. difficile. No abscess, perforation or obstruction. Alberto Rivas MD Procedures No procedures performed Other Results Laboratory Tests Test 01/04/17 01/04/17 01/05/17 01/05/17 14:50 16:55 04:16 13:30 Differential Total Cells 100 Counted Neutrophils % (Manual) 75 % Band Neutrophils % 6 % Lymphocytes % 13 % Monocytes % 4 % Eosinophils % 1 % Basophils % 1 % Neutrophils # (Manual) 18.7 TH/MM3 Platelet Estimate NORMAL Platelet Morphology Comment NORMAL Target Cells 1+ Activated Partial 28.9 SEC Thromboplast Time Lactic Acid Level 2.1 mmol/L Urine Color DARK-YELLOW Urine Turbidity CLEAR Urine pH 7.5 Urine Specific [place] 1.017 Urine Protein 30 mg/dL Urine Glucose (UA) NEG mg/dL Urine Ketones NEG mg/dL Urine Occult Blood NEG Urine Nitrite NEG Urine Bilirubin NEG Urine Urobilinogen LESS THAN 2.0 MG/DL Urine Leukocyte Esterase NEG Urine WBC 2 /hpf Microscopic Urinalysis Comment CULT NOT INDICATED Prothrombin Time 12.7 SEC Prothromb Time International 1.1 RATIO Ratio Sodium Level 137 MEQ/L Chloride Level 103 MEQ/L Carbon Dioxide Level 21.6 MEQ/L Anion Gap 12 MEQ/L Blood Urea Nitrogen 11 MG/DL Creatinine 0.87 MG/DL Estimat Glomerular Filtration 62 ML/MIN Rate Random Glucose 92 MG/DL Calcium Level 7.7 MG/DL Total Bilirubin 0.9 MG/DL Direct Bilirubin 0.4 MG/DL Indirect Bilirubin 0.5 MG/DL Aspartate Amino Transf 12 U/L (AST/SGOT) Alanine Aminotransferase 29 U/L (ALT/SGPT) Alkaline Phosphatase 84 U/L Total Protein 4.9 GM/DL Albumin 1.8 GM/DL Lipase 55 U/L Stool C. difficile Toxin (PCR) POSITIVE Stl C. difficile Toxin PRESUMPTIVE Epiderm 027 POSITIVE Test 01/06/17 05:05 White Blood Count 25.9 TH/MM3 Red Blood Count 3.14 MIL/MM3 Hemoglobin 9.9 GM/DL Hematocrit 30.0 % Mean Corpuscular Volume 95.6 FL Mean Corpuscular Hemoglobin 31.6 PG Mean Corpuscular Hemoglobin 33.1 % Concent Red Cell Distribution Width 13.9 % Platelet Count 282 TH/MM3 Mean Platelet Volume 8.4 FL Neutrophils (%) (Auto) 93.0 % Lymphocytes (%) (Auto) 4.0 % Monocytes (%) (Auto) 2.9 % Eosinophils (%) (Auto) 0.0 % Basophils (%) (Auto) 0.1 % Neutrophils # (Auto) 24.1 TH/MM3 Lymphocytes # (Auto) 1.0 TH/MM3 Monocytes # (Auto) 0.7 TH/MM3 Eosinophils # (Auto) 0.0 TH/MM3 Basophils # (Auto) 0.0 TH/MM3 CBC Comment DIFF FINAL Differential Comment Potassium Level 3.1 MEQ/L Magnesium Level 1.4 MG/DL Objective Remarks GENERAL: No acute distress. SKIN: Warm and dry. No lesions noted. HEENT: Normocephalic. Pupils equal and round. Mucous membranes pink and moist. CARDIOVASCULAR: Regular rate and rhythm. No murmur appreciated. RESPIRATORY: No accessory muscle use. Clear to auscultation. Breath sounds equal bilaterally. GASTROINTESTINAL: Soft mild tenderness generalized, positive bowel sounds and no rebound tenderness. MUSCULOSKELETAL: No obvious deformities. No clubbing or cyanosis. No edema. NEUROLOGICAL: Awake and alert. No focal neurological deficits. Moves upper and lower extremities spontaneously. Normal speech. PSYCHIATRIC: Appropriate mood and affect; insight and judgment normal. Medications and IVs Current Medications Medications (Trade) Dose Ordered Sig/Quentin Route Start Time Stop Time Status Last Admin (Ecotrin Ec) 81 mg DAILY PO 01/05/17 09:00 01/05/17 08:11 (Coreg) 6.25 mg BID PO 01/04/17 21:00 01/05/17 20:53 (Aricept) 5 mg HS PO 01/04/17 21:00 01/06/17 21:17 Sulfasalazine 500 mg 500 mg BID PO 01/04/17 21:00 01/06/17 21:18 (NS 1000 ml Inj) 1,000 ml @ 100 mls/hr Q10H IV 01/04/17 18:00 01/07/17 05:26 (NS Flush) 2 ml UNSCH PRN FLUSH 01/04/17 17:30 (NS Flush) 2 ml BID FLUSH 01/04/17 21:00 01/06/17 21:18 (Tylenol) 650 mg Q4H PRN PO 01/04/17 17:30 01/05/17 03:59 (Zofran Inj) 4 mg Q6H PRN IVP 01/04/17 17:30 01/04/17 18:41 (Reglan Inj) 5 mg Q6H PRN IV PUSH 01/04/17 17:30 (Lovenox Inj) 40 mg Q24H SQ 01/04/17 18:00 01/06/17 17:05 (Tylenol) 650 mg Q6H PRN PO 01/04/17 18:00 ([place] 5-325 Mg) 1 tab Q4H PRN PO 01/04/17 18:00 (Morphine Inj) 2 mg Q3H PRN IV 01/04/17 18:00 01/04/17 18:42 (Narcan Inj) 0.4 mg UNSCH PRN IV 01/04/17 18:00 (Deltasone) 10 mg DAILY PO 01/06/17 09:00 (Flagyl) 500 mg Q8HR PO 01/05/17 14:00 01/07/17 05:26 Vancomycin HCl 250 mg 250 mg QID PO 01/05/17 13:00 01/19/17 12:59 01/06/17 21:18 (Magnesium Sulfate 1 Gm Premix) 100 ml @ 100 mls/hr Q1H IV 01/07/17 09:30 01/07/17 11:29 UNV A/P Problem List: (1) Pancolitis ICD Code: K51.00 (2) Diarrhea ICD Code: R19.7 Assessment and Plan 1. Acute on chronic Colitis, initially on Zosyn and Metronidazole, her C Diff test was positive as per Doctor Alberto Escobar the patient had diarrhea, She had EGD and Colonoscopy 11/05/[address] Marquis now with Pseudomembranous colitis Non tenderness, recommended to stop IV antibiotics, that may complicate her C Diff, she has diagnosis of Lyphocytic Colitis she is been on Prednisone and Sulfasalazine medicines were continued on admission 2. Leukocytosis secondary to basal pathology and Steroid use. 3. Diarrhea improving 4. Hyperlipidemia at this time on hold home medicines 5. GERD continue GI protection 6. Dementia continue Home medicines today oriented in Place and Person. 7. Hypertension controlled 8. Electrolyte derangement replaced and following Discussed with patient and Nurse Miss Parker in the room, she is been recommended by Physical therapy to come back home and continue Physical therapy. DVT prophylaxis: Lovenox Code Status Full code Discharge Planning Expected for tomorrow 01/08/17 Problem Qualifiers (1) Diarrhea: Qualified Code: A09 - Diarrhea of presumed infectious origin Wally Pretty MD Jan 07, 2017 09:20
[2017-01-07] MEDS: sulfaSALAzine 500 MG TAB PO SCH ×2 (09:41→22:04)
[2017-01-07] MEDS: CARVEDILOL 6.25 MG TAB PO SCH ×2 (09:41→22:04)
[2017-01-07] MEDS: predniSONE 10 MG TAB PO SCH (09:42)
[2017-01-07] MEDS: ASPIRIN EC 81 MG TABEC PO SCH (09:43)
[2017-01-07] MEDS: VANCOMYCIN 500 MG VIAL (FOR ORAL USE ONLY) PO SCH ×4 (09:44→22:04)
[2017-01-07] MEDS: POTASSIUM CHLOR 20 MEQ PREMIX 100 ML IV SCH ×2 (09:46→12:15)
[2017-01-07] MEDS: MAGNESIUM SULFATE 1 GM PREMIX 100 ML IV SCH ×2 (09:46→12:17)
[2017-01-07 12:00] VITALS: BP 135/64; PULSE 72; RESP 18; TEMP 95.9; O2SAT 97
[2017-01-07 16:00] VITALS: BP 176/81; PULSE 90; RESP 22; TEMP 96.6; O2SAT 97
[2017-01-07] MEDS: ENOXAPARIN SODIUM 40 MG/0.4 ML SYRINGE SQ SCH (16:50)
[2017-01-07 18:17] VITALS: O2SAT 97
[2017-01-07 20:00] VITALS: BP 161/82; PULSE 86; RESP 20; TEMP 96.6; O2SAT 98
[2017-01-07] MEDS: DONEPEZIL HCL 5 MG TAB PO SCH (22:04)
[2017-01-08] VITALS: BP 158/84; PULSE 82; RESP 20; TEMP 97.4; O2SAT 97
[2017-01-08] MEDS: SODIUM CHLOR 0.9% 1000 ML INJ 1,000 ML IV SCH ×2 (02:12→12:28)
[2017-01-08] MEDS: metroNIDAZOLE 500 MG TAB PO SCH ×3 (05:11→20:24)
[2017-01-08 08:00] VITALS: BP 148/73; PULSE 76; RESP 16; TEMP 97.1; O2SAT 96
[2017-01-08] MEDS: SODIUM CHLORIDE 0.9% FLUSH 5 ML FLUSH FLUSH SCH ×2 (09:00→20:24)
[2017-01-08] MEDS: VANCOMYCIN 500 MG VIAL (FOR ORAL USE ONLY) PO SCH ×4 (09:37→20:24)
[2017-01-08] MEDS: ASPIRIN EC 81 MG TABEC PO SCH (09:37)
[2017-01-08] MEDS: sulfaSALAzine 500 MG TAB PO SCH ×2 (09:37→20:23)
[2017-01-08] MEDS: CARVEDILOL 6.25 MG TAB PO SCH ×2 (09:38→20:24)
[2017-01-08] MEDS: predniSONE 10 MG TAB PO SCH (09:38)
[2017-01-08 10:38] VITALS: O2SAT 98
[2017-01-08 11:47] LABS: BICARBONATE 19.9 MEQ/L (21.0-32.0); MAGNESIUM 1.7 MG/DL (1.5-2.5); POTASSIUM 3.5 MEQ/L (3.5-5.1)
[2017-01-08 12:00] VITALS: BP 146/69; PULSE 73; RESP 17; TEMP 97.4; O2SAT 96
[2017-01-08] MEDS ORDERED: POTASSIUM CHLORIDE 20 MEQ CONTROLLED RELEASE TAB PO ONE (15:45)
--- NOTE | 2017-01-08 16:11 | HHI.PR ---
Subjective Remarks The patient was not sure if she wanted to go to rehabilitation versus home. She said she had 3 bowel movements so far today. She says she does not have any pain at this time. She says she has been ambulating but she has been feeling lazy. She is eating a clear liquid diet and would like to try a more advanced diet. Discussed with nursing. Objective Vitals Vital Signs Date Time Temp Pulse Resp B/P Pulse Ox O2 Delivery O2 Flow Rate FiO2 01/08/17 12:00 97.4 73 17 146/69 96 01/08/17 10:38 98 21 01/08/17 08:00 97.1 76 16 148/73 96 01/08/17 00:00 97.4 82 20 158/84 97 01/07/17 20:00 96.6 86 20 161/82 98 01/07/17 18:17 97 21 I/O 01/07/17 01/07/17 01/07/17 01/08/17 01/08/17 01/08/17 07:00 15:00 23:00 07:00 15:00 23:00 Intake Total 120 ml 816 ml 540 ml 1867 ml 1123 ml Output Total 850 ml 550 ml 800 ml Balance 120 ml 816 ml -310 ml 1317 ml 323 ml Intake Oral 120 ml 90 ml 540 ml 220 ml 120 ml IV Total 726 ml 1647 ml 1003 ml Output Urine Total 850 ml 550 ml 800 ml # Voids 3 3 # Bowel Movements 3 2 0 0 3 Result Diagram: 01/06/17 0505 01/08/17 1114 Imaging Last Impressions Abdomen/Pelvis CT 01/04/17 1429 Signed Impressions: Service Date/Time: Wednesday, January 04, 2017 16:12 - CONCLUSION: Moderate to severe pancolitis, nonspecific but could be C. difficile. No abscess, perforation or obstruction. Alberto Rivas MD Objective Remarks GENERAL: No acute distress. SKIN: Warm and dry. No lesions noted. HEENT: Normocephalic. Pupils equal and round. Mucous membranes pink and moist. CARDIOVASCULAR: Regular rate and rhythm. No murmur appreciated. RESPIRATORY: No accessory muscle use. Clear to auscultation. Breath sounds equal bilaterally. GASTROINTESTINAL: No tenderness, positive bowel sounds and no rebound tenderness. MUSCULOSKELETAL: No obvious deformities. No clubbing or cyanosis. No edema. NEUROLOGICAL: Awake and alert. No focal neurological deficits. Moves upper and lower extremities spontaneously. Normal speech. PSYCHIATRIC: Appropriate mood and affect; insight and judgment normal. Medications and IVs Current Medications Medications (Trade) Dose Ordered Sig/Quentin Route Start Time Stop Time Status Last Admin (Ecotrin Ec) 81 mg DAILY PO 01/05/17 09:00 01/08/17 09:37 (Coreg) 6.25 mg BID PO 01/04/17 21:00 01/08/17 09:38 (Aricept) 5 mg HS PO 01/04/17 21:00 01/07/17 22:04 (Azulfidine) 500 mg BID PO 01/04/17 21:00 01/08/17 09:37 (NS Flush) 2 ml UNSCH PRN FLUSH 01/04/17 17:30 (NS Flush) 2 ml BID FLUSH 01/04/17 21:00 01/07/17 22:05 (Tylenol) 650 mg Q4H PRN PO 01/04/17 17:30 01/05/17 03:59 (Zofran Inj) 4 mg Q6H PRN IVP 01/04/17 17:30 01/04/17 18:41 (Reglan Inj) 5 mg Q6H PRN IV PUSH 01/04/17 17:30 (Lovenox Inj) 40 mg Q24H SQ 01/04/17 18:00 01/07/17 16:50 (Tylenol) 650 mg Q6H PRN PO 01/04/17 18:00 ([place] 5-325 Mg) 1 tab Q4H PRN PO 01/04/17 18:00 (Morphine Inj) 2 mg Q3H PRN IV 01/04/17 18:00 01/04/17 18:42 (Narcan Inj) 0.4 mg UNSCH PRN IV 01/04/17 18:00 (Deltasone) 10 mg DAILY PO 01/06/17 09:00 01/08/17 09:38 (Flagyl) 500 mg Q8HR PO 01/05/17 14:00 01/08/17 12:28 (VANCOMYCIN for oral use only) 250 mg QID PO 01/05/17 13:00 01/19/17 12:59 01/08/17 12:28 A/P Assessment and Plan C diff colitis She had EGD and Colonoscopy 11/05/16, now with Pseudomembranous colitis. - continue PO vancomycin and Flagyl. - continue prednisone and sulfasalazine. - Advanced to low residue diet. Leukocytosis Secondary to colitis and steroid use. - monitor as needed. Dementia Stable. - continue home medicines. - PT. Consider SNF placement. Hypertension Somewhat elevated BP. - continue home meds. - Vasotec as needed. DVT prophylaxis: Lovenox Discharge Planning Anticipate discharge home with home health care versus SNF in 1-2 days. Panda Stewart DO Jan 08, 2017 16:11
[2017-01-08] MEDS: ENOXAPARIN SODIUM 40 MG/0.4 ML SYRINGE SQ SCH (17:00)
[2017-01-08 20:00] VITALS: BP 154/78; PULSE 82; RESP 20; TEMP 97; O2SAT 98
[2017-01-08] MEDS: DONEPEZIL HCL 5 MG TAB PO SCH (20:24)
[2017-01-09] VITALS: BP 140/80; PULSE 78; RESP 20; TEMP 98; O2SAT 96
[2017-01-09 05:04] LABS: HEMATOCRIT 30.3 % (35.0-46.0); MEAN CELL VOLUME 94.8 FL (80.0-100.0); MEAN CORPUSCULAR HEMOGLOBIN 31.6 PG (27.0-34.0); MEAN CORPUSCULAR HGB CONC 33.3 % (32.0-36.0); PLATELET COUNT 296 TH/MM3 (150-450); REVIEW FLAG FINAL; WHITE BLOOD COUNT 12.1 TH/MM3 (4.0-11.0)
[2017-01-09] MEDS: metroNIDAZOLE 500 MG TAB PO SCH ×3 (05:11→21:27)
[2017-01-09 05:30] LABS: BICARBONATE 20.9 MEQ/L (21.0-32.0); MAGNESIUM 1.4 MG/DL (1.5-2.5); POTASSIUM 3.5 MEQ/L (3.5-5.1)
[2017-01-09 08:00] VITALS: BP 189/88; PULSE 76; RESP 20; TEMP 95.3; O2SAT 97
[2017-01-09] MEDS: predniSONE 10 MG TAB PO SCH (08:38)
[2017-01-09] MEDS: ASPIRIN EC 81 MG TABEC PO SCH (08:38)
[2017-01-09] MEDS: sulfaSALAzine 500 MG TAB PO SCH ×2 (08:38→21:27)
[2017-01-09] MEDS: SODIUM CHLORIDE 0.9% FLUSH 5 ML FLUSH FLUSH SCH ×2 (08:39→21:28)
[2017-01-09] MEDS: VANCOMYCIN 500 MG VIAL (FOR ORAL USE ONLY) PO SCH ×4 (08:44→21:28)
[2017-01-09] MEDS: CARVEDILOL 6.25 MG TAB PO SCH ×2 (08:44→21:27)
[2017-01-09] MEDS ORDERED: POTASSIUM CHLORIDE 20 MEQ CONTROLLED RELEASE TAB PO ONE (10:00)
--- NOTE | 2017-01-09 10:08 | HHI.PR ---
Subjective Remarks The patient continues to have diarrhea. She is looking forward to going home soon. She denies any abdominal pain. She is tolerating a diet. Discussed with nursing. Objective Vitals Vital Signs Date Time Temp Pulse Resp B/P Pulse Ox O2 Delivery O2 Flow Rate FiO2 01/09/17 08:00 95.3 76 20 189/88 97 01/09/17 00:00 98.0 78 20 140/80 96 01/08/17 20:00 97.0 82 20 154/78 98 01/08/17 12:00 97.4 73 17 146/69 96 01/08/17 10:38 98 21 I/O 01/08/17 01/08/17 01/08/17 01/09/17 01/09/17 01/09/17 07:00 15:00 23:00 07:00 15:00 23:00 Intake Total 1867 ml 1123 ml 340 ml 220 ml 0 ml Output Total 550 ml 800 ml 400 ml 400 ml Balance 1317 ml 323 ml -60 ml -180 ml 0 ml Intake Oral 220 ml 120 ml 340 ml 220 ml IV Total 1647 ml 1003 ml 0 ml Output Urine Total 550 ml 800 ml 400 ml 400 ml # Bowel Movements 0 3 0 0 Result Diagram: 01/09/17 0432 01/09/17 0435 Imaging Last Impressions Abdomen/Pelvis CT 01/04/17 1429 Signed Impressions: Service Date/Time: Wednesday, January 04, 2017 16:12 - CONCLUSION: Moderate to severe pancolitis, nonspecific but could be C. difficile. No abscess, perforation or obstruction. Alberto Rivas MD Objective Remarks GENERAL: No acute distress. SKIN: Warm and dry. No lesions noted. HEENT: Normocephalic. Pupils equal and round. Mucous membranes pink and moist. CARDIOVASCULAR: Regular rate and rhythm. No murmur appreciated. RESPIRATORY: No accessory muscle use. Clear to auscultation. Breath sounds equal bilaterally. GASTROINTESTINAL: No tenderness, positive bowel sounds and no rebound tenderness. MUSCULOSKELETAL: No obvious deformities. No clubbing or cyanosis. No edema. NEUROLOGICAL: Awake and alert. No focal neurological deficits. Moves upper and lower extremities spontaneously. Normal speech. PSYCHIATRIC: Appropriate mood and affect; insight and judgment normal. Medications and IVs Current Medications Medications (Trade) Dose Ordered Sig/Quentin Route Start Time Stop Time Status Last Admin (Ecotrin Ec) 81 mg DAILY PO 01/05/17 09:00 01/09/17 08:38 (Coreg) 6.25 mg BID PO 01/04/17 21:00 01/09/17 08:44 (Aricept) 5 mg HS PO 01/04/17 21:00 01/08/17 20:24 (Azulfidine) 500 mg BID PO 01/04/17 21:00 01/09/17 08:38 (NS Flush) 2 ml UNSCH PRN FLUSH 01/04/17 17:30 (NS Flush) 2 ml BID FLUSH 01/04/17 21:00 01/09/17 08:39 (Tylenol) 650 mg Q4H PRN PO 01/04/17 17:30 01/05/17 03:59 (Zofran Inj) 4 mg Q6H PRN IVP 01/04/17 17:30 01/04/17 18:41 (Reglan Inj) 5 mg Q6H PRN IV PUSH 01/04/17 17:30 (Lovenox Inj) 40 mg Q24H SQ 01/04/17 18:00 01/08/17 17:00 (Tylenol) 650 mg Q6H PRN PO 01/04/17 18:00 ([place] 5-325 Mg) 1 tab Q4H PRN PO 01/04/17 18:00 (Morphine Inj) 2 mg Q3H PRN IV 01/04/17 18:00 01/04/17 18:42 (Narcan Inj) 0.4 mg UNSCH PRN IV 01/04/17 18:00 (Deltasone) 10 mg DAILY PO 01/06/17 09:00 01/09/17 08:38 (Flagyl) 500 mg Q8HR PO 01/05/17 14:00 01/09/17 05:11 (VANCOMYCIN for oral use only) 250 mg QID PO 01/05/17 13:00 01/19/17 12:59 01/09/17 08:44 Potassium Chloride 40 meq 40 meq ONCE ONCE PO 01/09/17 10:00 01/09/17 10:01 UNV (Magnesium Sulfate 1 Gm Premix) 100 ml @ 100 mls/hr Q1H IV 01/09/17 10:00 01/09/17 12:59 UNV (Prinivil) 10 mg DAILY PO 01/09/17 10:00 UNV A/P Assessment and Plan C diff colitis She had EGD and colonoscopy 11/05/16, now with pseudomembranous colitis. Continues to have diarrhea. - continue PO vancomycin and Flagyl. - continue prednisone and sulfasalazine. - Advanced to low residue diet. Leukocytosis Secondary to colitis and steroid use. Improved 01/09. - monitor as needed. Dementia Stable. - continue home medicines. - PT. Consider SNF placement. Hypertension Somewhat elevated BP. - continue home meds. Add lisinopril 01/09. - Vasotec as needed. Hypomagnesemia S/t diarrhea. - replete and monitor. DVT prophylaxis: Lovenox Discharge Planning Anticipate discharge home with home health care versus SNF in 1-2 days. Panda Stewart DO Jan 09, 2017 10:08
[2017-01-09] MEDS: LISINOPRIL 10 MG TAB PO SCH (11:05)
[2017-01-09] MEDS: MAGNESIUM SULFATE 1 GM PREMIX 100 ML IV SCH ×3 (11:08→12:55)
[2017-01-09 12:00] VITALS: BP 146/70; PULSE 78; RESP 26; TEMP 95.8; O2SAT 96
[2017-01-09 16:00] VITALS: BP 176/82; PULSE 73; RESP 26; TEMP 95.2; O2SAT 99
[2017-01-09] MEDS: ENOXAPARIN SODIUM 40 MG/0.4 ML SYRINGE SQ SCH (17:38)
[2017-01-09 20:00] VITALS: BP 160/76; PULSE 83; RESP 19; TEMP 96.8; O2SAT 97
[2017-01-09] MEDS: DONEPEZIL HCL 5 MG TAB PO SCH (21:27)
[2017-01-10] VITALS: BP 114/59; PULSE 71; RESP 19; TEMP 96; O2SAT 97
[2017-01-10] MEDS: metroNIDAZOLE 500 MG TAB PO SCH ×2 (04:57→13:02)
[2017-01-10 05:34] LABS: HEMATOCRIT 30.8 % (35.0-46.0); MEAN CELL VOLUME 95.5 FL (80.0-100.0); MEAN CORPUSCULAR HEMOGLOBIN 32.1 PG (27.0-34.0); MEAN CORPUSCULAR HGB CONC 33.6 % (32.0-36.0); PLATELET COUNT 324 TH/MM3 (150-450); RED BLOOD COUNT 3.23 MIL/MM3 (4.00-5.30); RED CELL DISTRIBUTION WIDTH 14.1 % (11.6-17.2); REVIEW FLAG FINAL; WHITE BLOOD COUNT 7.7 TH/MM3 (4.0-11.0)
[2017-01-10 06:07] LABS: BICARBONATE 22.2 MEQ/L (21.0-32.0); MAGNESIUM 1.8 MG/DL (1.5-2.5); POTASSIUM 3.4 MEQ/L (3.5-5.1)
[2017-01-10 08:00] VITALS: BP 175/87; PULSE 70; RESP 17; TEMP 95.2; O2SAT 99
[2017-01-10] MEDS: predniSONE 10 MG TAB PO SCH (08:49)
[2017-01-10] MEDS: SODIUM CHLORIDE 0.9% FLUSH 5 ML FLUSH FLUSH SCH (08:49)
[2017-01-10] MEDS: sulfaSALAzine 500 MG TAB PO SCH (08:49)
[2017-01-10] MEDS: CARVEDILOL 6.25 MG TAB PO SCH (08:49)
[2017-01-10] MEDS: ASPIRIN EC 81 MG TABEC PO SCH (08:49)
[2017-01-10] MEDS: VANCOMYCIN 500 MG VIAL (FOR ORAL USE ONLY) PO SCH ×2 (08:49→13:02)
[2017-01-10] MEDS: LISINOPRIL 10 MG TAB PO SCH (08:49)
[2017-01-10] MEDS ORDERED: POTASSIUM CHLORIDE 25 MEQ EFFERVESCENT TAB PO ONE (09:00)
[2017-01-10] MEDS ORDERED: LISINOPRIL 10 MG TAB PO ONE (09:00)
[2017-01-10] MEDS ORDERED: VANC500I3 PO (09:01)
[2017-01-10] MEDS ORDERED: METR-1 PO (09:01)
[2017-01-10] MEDS ORDERED: LISI-515 PO (09:01)
--- NOTE | 2017-01-10 09:02 | HHI.DCPOC ---
Discharge Care Plan Diagnosis: (1) Diarrhea (2) Pancolitis (3) Weakness (4) HTN (hypertension) (5) C. difficile colitis Goals to Promote Your Health * To prevent worsening of your condition and complications * To maintain your health at the optimal level Directions to Meet Your Goals Take your medications as prescribed Follow your dietary instruction Follow activity as directed Keep your appointments as scheduled Take your immunizations and boosters as scheduled If your symptoms worsen call your PCP, if no PCP go to Urgent Care Center or Emergency Room Smoking is Dangerous to Your Health. Avoid second hand smoke Call the 24-hour hour crisis hotline for domestic abuse at Panda Stewart DO Jan 10, 2017 09:02
[2017-01-10] MEDS ORDERED: MAGN400T2 PO (09:03)
--- NOTE | 2017-01-10 09:09 | HHI.DS ---
Discharge Summary Admission Date Jan 04, 2017 at 17:26 Discharge Date: Jan 10, 2017 Admitting Diagnosis acute pancycolitis, AMS (1) C. difficile colitis ICD Code: A04.7 Diagnosis: Principal (2) HTN (hypertension) ICD Code: I10 (3) Weakness ICD Code: R53.1 (4) Pancolitis ICD Code: K51.00 (5) Diarrhea ICD Code: R19.7 Procedures None. Brief History - From Admission 86-year-old female with a past mental history of dementia, colitis, HTN, GERD, HLD who presents with abdominal pain. The patient has been having lower abdominal cramping since Saturday. She has been having associated diarrhea, at least 3 loose stools daily. She reports decreased appetite and nausea, no vomiting. She reports feeling colder than normal and was febrile in the ED. Denies any specific chills. She does follow with Dr. Dina Roque with colorectal surgery for colitis. The patient has been on prednisone for the past 2 weeks for treatment of the colitis, unclear on prednisone dose. She was in the hospital with similar complaints in October and had a rehabilitation stay after that. 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 She does not take any medications at home for pain. She lives at home with her daughter and is undergoing physical therapy at home. She was taken off of her antidepressants by her PCP. CBC/BMP: 01/10/17 0455 01/10/17 0455 Significant Findings Laboratory Tests Test 01/08/17 01/09/17 01/09/17 01/10/17 11:14 04:32 04:35 04:55 Chloride Level 108 MEQ/L 110 MEQ/L 108 MEQ/L (98-107) (98-107) (98-107) Carbon Dioxide Level 19.9 MEQ/L 20.9 MEQ/L (21.0-32.0) (21.0-32.0) Estimat Glomerular Filtration 80 ML/MIN (>89) 75 ML/MIN (>89) 70 ML/MIN (>89) Rate Random Glucose 73 MG/DL (74-106) Calcium Level 7.5 MG/DL 7.6 MG/DL 7.8 MG/DL (8.5-10.1) (8.5-10.1) (8.5-10.1) Phosphorus Level 2.0 MG/DL (2.5-4.9) White Blood Count 12.1 TH/MM3 (4.0-11.0) Red Blood Count 3.20 MIL/MM3 3.23 MIL/MM3 (4.00-5.30) (4.00-5.30) Hemoglobin 10.1 GM/DL 10.4 GM/DL (11.6-15.3) (11.6-15.3) Hematocrit 30.3 % 30.8 % (35.0-46.0) (35.0-46.0) Magnesium Level 1.4 MG/DL (1.5-2.5) Potassium Level 3.4 MEQ/L (3.5-5.1) Blood Urea Nitrogen 6 MG/DL (7-18) Imaging Last Impressions Abdomen/Pelvis CT 01/04/17 1429 Signed Impressions: Service Date/Time: Wednesday, January 04, 2017 16:12 - CONCLUSION: Moderate to severe pancolitis, nonspecific but could be C. difficile. No abscess, perforation or obstruction. Alberto Rivas MD PE at Discharge GENERAL: No acute distress. SKIN: Warm and dry. No lesions noted. HEENT: Normocephalic. Pupils equal and round. Mucous membranes pink and moist. CARDIOVASCULAR: Regular rate and rhythm. No murmur appreciated. RESPIRATORY: No accessory muscle use. Clear to auscultation. Breath sounds equal bilaterally. GASTROINTESTINAL: No tenderness, positive bowel sounds and no rebound tenderness. MUSCULOSKELETAL: No obvious deformities. No clubbing or cyanosis. No edema. NEUROLOGICAL: Awake and alert. No focal neurological deficits. Moves upper and lower extremities spontaneously. Normal speech. PSYCHIATRIC: Appropriate mood and affect; insight and judgment normal. Pt update on day of discharge The patient says her diarrhea was the same. She denied any pain. She said she still has a lack of appetite. She is looking forward to going to rehabilitation. No acute complaints at this time. 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 She was started on PO vancomycin and Flagyl. Her prednisone was weaned off. She was continued on sulfasalazine. Her diet was advanced to low residue. Her electrolytes were monitored and they were repleted as needed. The pt will follow up with colorectal surgery and GI as an outpt. She will have repeat labs in 3-5 days. She worked with physical therapy. Hypertension She was continued on her home meds. We added lisinopril 20 mg daily. She received Vasotec as needed. Pt Condition on Discharge: Stable Discharge Disposition: Discharge to SNF Discharge Time: > 30 minutes Discharge Instructions DIET: Follow Instructions for: Low Residue Diet Activities you can perform: Weight Bearing as [place] Follow up Referrals: Colorectal Surgery - 1 Week with Alberto Escobar MD PCP Follow-up - 1 Week New Orders: BASIC METABOLIC PROF - 3-5 Days New Medications: Magnesium Oxide (Magnesium Oxide) 400 Mg Tab 400 MG PO BID Nutritional Supplement #14 Ref 0 TAB Lisinopril (Lisinopril) 20 Mg Tab 20 MG PO DAILY Blood Pressure Management #30 TAB Metronidazole (Flagyl) 500 Mg Tab 500 MG PO Q8HR C diff #27 TAB Vancomycin Inj (Vancomycin Inj) 500 Mg Inj 250 MG PO QID C diff #36 INJECTION Continued Medications: Aspirin (Aspirin) 81 Mg Tabdr 81 MG PO DAILY TAB Atorvastatin (Atorvastatin) 20 Mg Tab 20 MG PO HS Cholesterol Management #30 Ref 0 TAB Carvedilol (Carvedilol) 6.25 Mg Tab 6.25 MG PO BID #60 Ref 0 TAB Donepezil (Aricept) 5 Mg Tab 5 MG PO HS Dementia Ref 0 TAB Mirtazapine (Mirtazapine) 30 Mg Tab 30 MG PO HS Depression Control #30 Ref 0 TAB Potassium Chloride ER (Potassium Chloride ER) 20 Meq Tab 10 MEQ PO DAILY Electrolyte Replacement #30 Ref 0 TAB Ranitidine (Ranitidine) 150 Mg Cap 150 MG PO BID #60 Ref 0 CAP Sulfasalazine (Sulfasalazine) 500 Mg Tab 500 MG PO BID #120 Ref 0 TAB Discontinued Medications: Loperamide HCl ([facility] Anti-Diarrheal) 2 Mg Cap 2 MG PO BID Tramadol (Tramadol) 50 Mg Tab 50 MG PO Q8H PRN PAIN #12 Ref 0 TAB Panda Stewart DO Jan 10, 2017 09:09
[2017-01-10 12:00] VITALS: BP 134/71; PULSE 65; RESP 18; TEMP 96.3; O2SAT 96
[2017-01-11] MEDS ORDERED: LISINOPRIL 20 MG TAB PO SCH (09:00)
== END 2017-01-10 15:39 | DRG 373 ==
LOC: NEPE 13:54 → NEDA 17:26 → N07B 21:29
PROVIDERS: ADMIT Hospitalist; ATTEND Hospitalist
DX: A04.7 Enterocolitis due to Clostridium difficile (principal); F03.90 Unspecified dementia, unspecified severity, without behavioral disturbance, psychotic disturbance, mood disturbance, and anxiety; E83.42 Hypomagnesemia; I10 Essential (primary) hypertension; R53.1 Weakness; K21.9 Gastro-esophageal reflux disease without esophagitis; E78.5 Hyperlipidemia, unspecified; Z79.82 Long term (current) use of aspirin; Z87.891 Personal history of nicotine dependence; Z66 Do not resuscitate
CPT/HCPCS: 74176; 80048; 80053; 80076; 81001; 83605; 83690; 83735; 84100; 84132; 85007; 85025; 85027; 85610; 85730; 87040; 87493; 96361; 96365; J1650; J2270; J2405; J2543; J3475; J3480; J7030; J7512

== ENCOUNTER 2017-02-22 23:07 | Emergency (ER) | payer MEDICARE, BC ==
[~2017-02-22] VITALS: Ht 154.9 cm; Wt 48.0 kg
[~2017-02-22 23:07] MED LIST changes: +ARIC5TAB PO; -CVS2CAP PO; +LISI-515 PO; +MAGN400T2 PO; +METR-1 PO; -TRAM50TA PO; +VANC500I3 PO
[2017-02-22 23:10] VITALS: BP 164/65; PULSE 85; RESP 16; TEMP 99.3; O2SAT 96
== END 2017-02-23 03:14 | disposition left against medical advice (07) ==
LOC: NED 23:07
DX: R19.7 Diarrhea, unspecified (principal)
CPT/HCPCS: 99281